=== PATIENT | male | born 1940 | race Caucasian/White ===

== ENCOUNTER 2016-12-08 21:18 | Inpatient (IN) | payer MEDICARE, OTHER ==
--- NOTE | 2016-12-08 21:51 | ED ---
General Adult HPI - General Chief complaint: Chest Pain Stated complaint: tachycardia Time Seen by Provider: 12/08/16 21:40 Source: patient, RN notes reviewed Mode of arrival: ambulatory Limitations: no limitations - History of Present Illness Initial comments: Patient is a pleasant 76-year-old male presenting to the emergency department with atrial fibrillation. Patient was transferred for cardiac care. Patient admits to earlier feeling somewhat short of breath. Patient at one point did have some palpitations. Patient denies ever having chest discomfort. Patient is symptom-free at this time. Patient reportedly had atrial fibrillation with RVR. Patient was started on heparin as well as Cardizem drips. - Related Data Home Medications Medication Instructions Recorded Confirmed Aspirin 81 mg PO DAILY 08/17/15 12/08/16 Folic Acid 1 mg PO DAILY 08/17/15 12/08/16 Insulin Aspart Protam & Aspart 16 unit SQ TID 08/17/15 12/08/16 [NovoLOG MIX 70-30 Flexpen] Insulin Glargine,Hum.rec.anlog 24 unit SQ HS 08/17/15 12/08/16 [Lantus Solostar] Lisinopril 40 mg PO DAILY 08/17/15 12/08/16 Lovastatin [Mevacor] 40 mg PO W/SUPPER 08/17/15 12/08/16 Nitroglycerin Sl Tabs [Nitrostat] 0.4 mg SUBLINGUAL Q5M PRN 08/17/15 12/08/16 Spironolactone [Aldactone] 25 mg PO DAILY 08/17/15 12/08/16 amLODIPine [Norvasc] 10 mg PO DAILY 08/17/15 12/08/16 metFORMIN HCL 1,000 mg PO BID 08/17/15 12/08/16 Atenolol 100 mg PO DAILY 12/08/16 12/08/16 Previous Rx's Medication Instructions Recorded Clopidogrel [Plavix] 75 mg PO DAILY #30 tab 08/27/15 Allergies Allergy/AdvReac Type Severity Reaction Status Date / Time No Known Allergies Allergy Verified 12/08/16 22:02 Review of Systems ROS Statement: Those systems with pertinent positive or pertinent negative responses have been documented in the HPI. ROS Other: All systems not noted in ROS Statement are negative. Constitutional: Denies: fever Eyes: Denies: eye pain ENT: Denies: ear pain Respiratory: Reports: dyspnea. Denies: cough Cardiovascular: Reports: palpitations. Denies: chest pain Endocrine: Denies: fatigue Gastrointestinal: Denies: abdominal pain Genitourinary: Denies: dysuria Musculoskeletal: Denies: back pain Skin: Denies: rash Neurological: Denies: weakness Past Medical History Past Medical History: Atrial Fibrillation, Coronary Artery Disease (CAD), Heart Failure, Diabetes Mellitus, Hyperlipidemia, Hypertension, Myocardial Infarction (NM) Additional Past Medical History / Comment(s): sores on arms, INTERMITTENT CLAUDICATION, PAD Last Myocardial Infarction Date:: unknown History of Any Multi-Drug Resistant Organisms: None Reported Past Surgical History: Coronary Bypass/CABG, Heart Catheterization Additional Past Surgical History / Comment(s): TRIPLE VESSEL CABG 2001( LEHMAN TO LAD, MONTY TO RCA, SVG TO KATT AND OM-EF 45%), susanna cataracts, 08-26-15 ABD AORTIC AORTOGRAM,SUSANNA LOWER EXTREMITY RUNNOFF,BALLOON ANGIOPLASTY RT SFA,STENT TO SFA. Past Anesthesia/Blood Transfusion Reactions: No Reported Reaction Past Psychological History: No Psychological Hx Reported Smoking Status: Former smoker Past Alcohol Use History: Occasional Past Drug Use History: None Reported - Past Family History Mother Family Medical History: No Reported History Additional Family Medical History / Comment(s): PT POOR HISTORIAN ON PARENTS HX - ALL HE KNEW WAS SHE HAD TB WHEN SHE WAS YOUNGER Father Family Medical History: Dementia Additional Family Medical History / Comment(s): CARDAIC DISEASE General Exam Limitations: no limitations General appearance: alert Head exam: Present: atraumatic Eye exam: Present: normal appearance, PERRL ENT exam: Present: normal oropharynx Neck exam: Present: normal inspection Respiratory exam: Present: normal lung sounds bilaterally Cardiovascular Exam: Present: regular rate, irregular rhythm GI/Abdominal exam: Present: soft. Absent: tenderness Extremities exam: Present: normal inspection. Absent: pedal edema, calf tenderness Neurological exam: Present: alert Psychiatric exam: Present: normal affect, normal mood Skin exam: Absent: rash Course Vital Signs 12/08/16 12/08/16 12/08/16 21:24 21:52 22:06 Temperature 98 F Pulse Rate 80 78 170 H Respiratory 16 16 16 Rate Blood Pressure 154/80 179/70 87/52 O2 Sat by Pulse 97 98 Oximetry 12/08/16 12/08/16 12/08/16 22:16 23:03 23:13 Temperature Pulse Rate 154 H 138 H 131 H Respiratory 16 16 16 Rate Blood Pressure 89/59 100/55 128/75 O2 Sat by Pulse 98 97 Oximetry - Reevaluation(s) Reevaluation #1: 12/08/16 22:23 Patient was reevaluated and updated. Heart rate has varied between 70 and 150. 12/08/16 23:16 Patient's troponin is elevated. Cardiology consult has been placed and patient is on heparin. Aspirin will be added. Chest x-ray will be repeated in the morning as well as further blood work. Lasix will also be added for elevated BNP and concern for CHF. EKG Findings - EKG Comments: EKG Findings:: Sinus rhythm with premature atrial complexes. SC 170. QRS 114. QT 398. QTC 447. Normal axis. Incomplete left bundle-branch block. Inverted T waves leads V2 through V6. Some ST depression laterally. Medical Decision Making - Medical Decision Making Chart reviewed from [facility]. Chest x-ray report showed cardiomegaly and concern for vascular congestion. BNP has been ordered. Case was discussed in detail with practitioner [facility], who will admit for Dr. Lopez , covering for hospital call. Consult will be placed for cardiology, Dr. Lugo who saw the patient earlier. Cardizem and heparin drips continued. Admission orders written. - Lab Data Lab Results 12/08/16 12/08/16 Range/Units 22:12 22:12 Total Creatine Kinase 67 (55-170) U/L CK-MB (CK-2) 1.9 (0.0-2.4) ng/mL CK-MB (CK-2) Rel Index 2.8 Troponin I 0.336 H* (0.000-0.034) ng/mL NT-Pro-B Natriuret Pep 4910 pg/mL Critical Care Time Critical Care Time: Yes Total Critical Care Time: 31 Disposition Clinical Impression: Atrial fibrillation with RVR Disposition: ADMITTED IP TO THIS HOSP Referrals: Benjamin Simms MD [Primary Care Provider] - 1-2 days
[2016-12-08] MEDS: HEPARIN SODIUM,PORCINE 5,000 UNIT/ML 1 ML VIAL IV PRN (22:04)
[2016-12-08] MEDS: HEPARIN SODIUM,PORCINE/D5W PMX 25,000 UNIT in DEXTROSE/WATER 1 500ML.BAG IV SCH (22:05)
[2016-12-08] MEDS ORDERED: DILTIAZEM 125 MG in SODIUM CHLORIDE 0.9% 100 ML IV ONE (22:08)
[2016-12-08] MEDS ORDERED: NALOXONE 0.4 MG/ML 1 ML VIAL IV PRN (22:21)
[2016-12-08 23:03] LABS: Creatine Kinase MB 1.9 ng/mL (0.0-2.4)
[2016-12-08 23:12] LABS: Troponin I 0.336 ng/mL (0.000-0.034)
[2016-12-08] MEDS: SODIUM CHLORIDE 0.9% 1,000 ML IV SCH (23:15)
[2016-12-08] MEDS ORDERED: ASPIRIN 81 MG CHEW PO STA (23:15)
[2016-12-08] MEDS ORDERED: FUROSEMIDE 10 MG/ML 4 ML VIAL IV STA (23:17)
[2016-12-09 00:34] LABS: Glucose,Whole Blood 175 mg/dL (75-99)
[2016-12-09 02:47] VITALS: BMI 29.7
[2016-12-09 06:13] LABS: Basophils # (A) 0.1 k/uL (0-0.2); Basophils % (A) 1 %; CH 27.3; CHCM 32.2; Eosinophils # (A) 0.1 k/uL (0-0.7); Eosinophils % (A) 2 %; HCT 38.2 % (39.0-53.0); HDW 3.32; HGB 12.1 gm/dL (13.0-17.5); Hypochromasia Slight; Luc # (Auto) 0.08; Luc % (Auto) 1; Lymphocytes # (A) 1.2 k/uL (1.0-4.8); Lymphocytes % (A) 22 %; MCHC 31.6 g/dL (31.0-37.0); MCV 85.2 fL (80.0-100.0); Mean Platelet Volume 8.2; Monocytes # (A) 0.2 k/uL (0-1.0); Monocytes % (A) 4 %; Neutrophils # (A) 3.7 k/uL (1.3-7.7); Neutrophils % (A) 70 %; RBC 4.48 m/uL (4.30-5.90); RDW 14.5 % (11.5-15.5); WBC 5.3 k/uL (3.8-10.6); WBC (Perox) 5.39
[2016-12-09 06:27] LABS: ALT 24 U/L (21-72); AST 12 U/L (17-59); Alkaline Phosphatase 63 U/L (38-126); Anion Gap 11 mmol/L; Blood Urea Nitrogen 25 mg/dL (9-20); Calcium 8.5 mg/dL (8.4-10.2); Carbon Dioxide 20 mmol/L (22-30); Chloride 106 mmol/L (98-107); Glucose 258 mg/dL (74-99); Magnesium 1.6 mg/dL (1.6-2.3); Non-African American GFR(MDRD) >60 (>60 ml/min/1.73 sqM); Phosphorous 3.9 mg/dL (2.5-4.5); Potassium 3.7 mmol/L (3.5-5.1); Sodium 137 mmol/L (137-145); Total Bilirubin 0.8 mg/dL (0.2-1.3); Total Protein 5.7 g/dL (6.3-8.2)
[2016-12-09] MEDS ORDERED: DEXTROSE 5% IN WATER 100 ML with AMIODARONE 150 MG IV ONE (06:37)
[2016-12-09] MEDS: INSULIN GLARGINE 100 UNIT/ML 10 ML VIAL SQ SCH ×2 (06:43→21:52)
[2016-12-09 06:44] LABS: Troponin I 0.343 ng/mL (0.000-0.034)
[2016-12-09] MEDS: HEPARIN SODIUM,PORCINE 5,000 UNIT/ML 1 ML VIAL IV PRN ×2 (06:45→23:21)
[2016-12-09 07:21] LABS: Glucose,Whole Blood 232 mg/dL (75-99)
[2016-12-09] MEDS: INSULIN LISPRO (humaLOG) 300 UNIT/3 ML VIAL SQ SCH ×4 (07:51→21:53)
[2016-12-09] MEDS: AMIODARONE 450 MG in DEXTROSE 5% IN WATER 250 ML IV SCH ×4 (08:40→17:08)
--- NOTE | 2016-12-09 08:42 | CONS ---
DATE OF CONSULTATION: CHIEF COMPLAINT: Palpitations. Luan is a 76-year-old gentleman with history of hypertension, dyslipidemia, insulin-requiring diabetes, coronary artery disease and prior history of atrial fibrillation who presented to [facility] with symptoms of sustained palpitations. He was in atrial fibrillation with rapid ventricular rate, was started on Cardizem and continued to have poorly controlled ventricular rate due to which he is transferred to [facility] and admitted here. Cardiology has been consulted for the same. At the time of my evaluation this morning, he still remains in A. fib with poorly controlled ventricular rate on Cardizem 15 mg. He denies chest pain, difficulty in breathing, dizziness, syncope, or focal neurological deficits. Past medical history is significant for insulin-requiring diabetes, CAD, hypertension, dyslipidemia, and paroxysmal atrial fibrillation; also peripheral vascular disease, status post angioplasty. Current medications include atenolol 100 q. daily, metformin 1000 b.i.d., Norvasc 10 q. daily, Aldactone 25 mg daily, aspirin, folic acid, insulin, lisinopril, Mevacor and sublingual nitroglycerin. ALLERGIES: No known drug allergies. Family history is negative for premature coronary artery disease. Social history is negative for current smoking, EtOH abuse or drug abuse. REVIEW OF SYSTEMS: HEENT: Unremarkable. CARDIAC: As described above. RESPIRATORY: Negative. GI: Negative. GENITOURINARY: Negative. ALLERGY/IMMUNOLOGY: Negative. MUSCULOSKELETAL: Significant for arthritis. PSYCHOSOCIAL: Negative. ENDOCRINE: Negative. DERMATOLOGY: Negative. CONSTITUTIONAL: Negative. The rest of the system review is not relevant. On exam, patient is comfortable at rest. Heart rate is 143 beats per minute, blood pressure 133/60, respirations 18. There is no jugular venous distention. Carotid upstroke is normal. There is no bruit. Chest exam reveals good air entry bilaterally. Heart exam reveals first and second heart sounds, irregular rhythm and no murmur. Abdomen is soft. Exam of the extremities did not reveal any edema. Peripheral pulses are felt. Rhythm strip shows that the patient is in A. fib with RVR. There were several times at which patient has converted to sinus rhythm, but went back into A. fib. Labs show that the hemoglobin is 12, platelet count is 135. His troponins are in the vora zone at 0.3 and 0.3. Potassium is 3.7. Creatinine is 0.9. Hemoglobin is 12.1. ASSESSMENT: 1. Atrial fibrillation with rapid ventricular rate. 2. Peripheral vascular disease. 3. Hypertension. 4. Insulin-requiring diabetes. PLAN: Patient is on IV Cardizem. Continues to be in A. fib with RVR. I started him on IV amiodarone and if he remains in A. fib with poorly controlled ventricular rate, we might have to do a DEVONTE cardioversion on him later today.
[2016-12-09] MEDS ORDERED: ATENOLOL 50 MG TAB PO SCH (09:00)
--- NOTE | 2016-12-09 10:19 | ECHOF ---
Referral Reason:a-fib MEASUREMENTS -------- HEIGHT: 177.8 cm WEIGHT: 93.9 kg BP: 149/89 RVIDd: 3.8 cm (< 3.3) IVSd: 0.9 cm (0.6 - 1.1) LVIDd: 6.0 cm (3.9 - 5.3) LVPWd: 1.3 cm (0.6 - 1.1) IVSs: 1.6 cm LVIDs: 5.5 cm LVPWs: 1.1 cm LA Diam: 4.4 cm (2.7 - 3.8) LAESV Index (A-L): 33.62 ml/m Ao Diam: 3.4 cm (2.0 - 3.7) AV Cusp: 2.0 cm (1.5 - 2.6) LA Diam: 4.4 cm (2.7 - 3.8) MV EXCURSION: 11.128 mm (> 18.000) MV EF SLOPE: 339 mm/s (70 - 150) EPSS: 1.9 cm MV E Leonard: 1.18 m/s MV DecT: 129 ms MV A Leonard: 0.72 m/s MV E/A Ratio: 1.64 RAP: 5.00 mmHg RVSP: 24.39 mmHg FINDINGS -------- Atrial fibrillation. This was a technically good study. There is mild concentric left ventricular hypertrophy. Overall left ventricular systolic function is severely impaired with, an EF between 20 - 25 %. The right ventricle is mildly enlarged. LA is midly dilated 29-33ml/m2. The right atrium is normal in size. Aortic valve is trileaflet and is mildly thickened. The mitral valve leaflets are mildly thickened. Mild mitral annular calcification present. There is trace mitral regurgitation. Trace tricuspid regurgitation present. The pulmonic valve was not well visualized. The aortic root size is normal. Normal inferior vena cava with normal inspiratory collapse consistent with estimated right atrial pressure of 5 mmHg. There is no pericardial effusion. CONCLUSIONS -------- 1. Atrial fibrillation. 2. Mild mitral annular calcification present. 3. There is trace mitral regurgitation. 4. Trace tricuspid regurgitation present. 5. The pulmonic valve was not well visualized. 6. The aortic root size is normal. 7. There is no pericardial effusion. 8. This was a technically good study. 9. There is mild concentric left ventricular hypertrophy. 10. Overall left ventricular systolic function is severely impaired with, an EF between 20 - 25 %. 11. The right ventricle is mildly enlarged. 12. LA is midly dilated 29-33ml/m2. 13. The right atrium is normal in size. 14. Aortic valve is trileaflet and is mildly thickened. 15. The mitral valve leaflets are mildly thickened. [employer] BLAST[employer]: Martinez Rosas RDCS
[2016-12-09 11:33] LABS: Troponin I 0.226 ng/mL (0.000-0.034)
[2016-12-09 12:34] LABS: Glucose,Whole Blood 226 mg/dL (75-99)
[2016-12-09] MEDS: LISINOPRIL 20 MG TAB PO SCH (12:37)
[2016-12-09] MEDS: metFORMIN 500 MG TAB PO SCH ×2 (12:37→21:54)
[2016-12-09] MEDS: ASPIRIN 325 MG TAB PO SCH (12:38)
[2016-12-09] MEDS: CLOPIDOGREL 75 MG TAB PO SCH (12:38)
[2016-12-09] MEDS: SPIRONOLACTONE 25 MG TAB PO SCH (12:38)
[2016-12-09] MEDS: INSULN ASP PRT/INSULIN ASPART 100 UNIT/ML 10 ML VIAL SQ SCH ×3 (12:39→21:57)
[2016-12-09 13:51] LABS: Hemoglobin A1C 9.7 % (4.2-6.1)
--- NOTE | 2016-12-09 15:15 | XR ---
EXAMINATION TYPE: XR chest 2V DATE OF EXAM: 12/09/2016 3:08 PM COMPARISON: 12/08/2016 TECHNIQUE: PA and lateral views submitted. HISTORY: Chest pain FINDINGS: The lungs are clear and there is no pneumothorax, pleural effusion, or focal pneumonia. Heart is en larged and there is postoperative change with coarsened interstitium. Arthropathy of the shoulders. N o pneumothorax. Vague nodular density along the medial margin of the right lower lobe Degenerative change of the spine and epicardial lead noted. IMPRESSION: 1. COPD, cardiomegaly and findings suggestive of interstitial lung disease. Correlate for mild venous congestion or chronic interstitial fibrosis 2. Vague nodular density along the medial margin of the right lower lobe may be related to superimpos ed structures. Short-term follow-up PA and lateral views the chest recommended
[2016-12-09 17:17] LABS: Glucose,Whole Blood 222 mg/dL (75-99)
[2016-12-09 17:54] VITALS: RESP 18
--- NOTE | 2016-12-09 18:25 | HP ---
DATE OF ADMISSION: CHIEF COMPLAINT: Chest pain and dizziness. HISTORY OF PRESENT ILLNESS: Mr. Powell is a 76-year-old male with known history of hypertension, insulin-dependent diabetes mellitus, CHF with systolic dysfunction, history of TIA and previous history of atrial fibrillation. He was sent from [facility] for further elevation by Cardiology due to atrial fibrillation with rapid ventricular rate. Patient initially presented to [facility] ( ) follow with Dr. Lugo and was found to have atrial fibrillation with rapid ventricular rate. Patient denied any palpitations. Patient has had dizziness on and off for the past several days. Denied any palpitations. Patient denied any chest pain. No complaints of shortness of breath. Patient was started on Cardizem drip. His heart rate is still elevated today. The patient otherwise was started on amiodarone drip as well. Cardiology is following this patient and considering DEVONTE and DC cardioversion this afternoon. Otherwise, currently denies any complaints of chest pain. No fever. No chills. No recent illnesses. No sick contacts at home. No recent travel. REVIEW OF SYSTEMS: CONSTITUTIONAL: No fever. No chills. No weakness or malaise. RESPIRATORY: No cough or sputum production. CARDIOVASCULAR: Denied any chest or chest pain. No shortness of breath. Patient does have dizziness and lightheadedness on and off. No leg swelling. ABDOMEN: No nausea or vomiting, abdominal pain. GENITOURINARY: Negative. ENDOCRINE: Negative. PSYCHIATRIC: Negative. SKIN: Negative. All other 14-point review of systems negative except as above. Past medical history includes: 1. Insulin-dependent diabetes mellitus. 2. History of coronary artery disease, status post coronary artery bypass graft. 3. Hypertension. 4. Hyperlipidemia. 5. History of paroxysmal atrial fibrillation. 6. Peripheral vascular disease. 7. Status post angioplasty on the right leg. 8. Coronary artery bypass graft 15 years ago. 9. History of MN. 10. Intermittent claudication. PAST SURGICAL HISTORY: 1. Coronary artery bypass graft. 2. Cardiac catheterization. 3. Triple-vessel coronary artery bypass graft done in 2001. 4. Bilateral cataract surgery. 5. Abdominal aortic aortogram. 6. Bilateral lower extremity balloon angioplasty, right SFA; stent to SFA. SOCIAL HISTORY: Patient is a former smoker. Occasional alcohol use. Denied any drugs or IVDU. FAMILY HISTORY: Mother had TB when she was younger. Patient otherwise denied any other history. Father has dementia and cardiac disease. ALLERGIES: NONE. HOME MEDICATIONS: 1. Aspirin. 2. Folic acid. 3. NovoLog Mix 70/30. 4. Insulin Glargine. 5. Lisinopril. 6. Lovastatin. 7. Nitroglycerin sublingual tablets. 8. Spironolactone. 9. Amlodipine. 10. Metformin. 11. Atenolol. 12. Plavix. PHYSICAL EXAMINATION: A 76-year-old male lying in bed comfortably. Awake, alert, oriented x3. Appears to be in no distress. VITAL SIGNS: Blood pressure is 114/69, pulse 167, respiration 18, temperature afebrile, pulse ox 99% on 2 L nasal cannula. HEENT: Atraumatic, normocephalic. Neck is supple. No JVD. CVS EXAM: S1, S2 heard. Irregularly irregular pulse and tachycardic. No leg swelling. ABDOMEN: No nausea, vomiting, abdominal pain. Soft, nontender. Bowel sounds are present. No palpable organomegaly. 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 Appears to be in no distress. Able to move all his extremities. No focal deficit. EXTREMITIES: No edema. Pulses palpable bilaterally. No clubbing or cyanosis. PSYCHIATRIC: Cooperative. LABORATORY DATA: WBC is 5.3, hemoglobin 12.1, platelets 135. Sodium 139, potassium 3.7, chloride 106, bicarb 20. BUN 25, creatinine 0.95. Blood sugar is 258. HbA1c is 9.7. AST is 12, ALT 24. Initial troponin 0.343 and 0.226. Albumin 3.1. CHEST X-RAY: COPD, cardiomegaly, findings suggestive of interstitial lung disease. Vague nodular density along the medial margin of the right lower lobe; may be related to stricture. Short term followup is recommended. Two-D echocardiogram showed atrial fibrillation with ejection fraction of 25%. IMPRESSION: 1. Atrial fibrillation with rapid ventricular rate, currently on Cardizem and amiodarone drip. Heart rates are still elevated and Cardiology is considering DEVONTE with cardioversion. 2. History of coronary artery disease, status post coronary artery bypass graft in 2001. 3. Hypertension. 4. Insulin-dependent diabetes mellitus, uncontrolled, with hemoglobin A1C of 9.7. 5. History of paroxysmal atrial fibrillation. 6. Peripheral vascular disease with history of right SFA stent placement. 7. Hyperlipidemia. 8. Congestive heart failure with ejection fraction of 20% to 25%, chronic. 9. Elevated troponin level, likely secondary to rapid ventricular rate. 10. Elevated troponin with possible [id number]-elevation myocardial infarction. DISCUSSION AND PLAN: Patient will be continued on heparin drip and continue with the Cardizem and amiodarone. Cardizem has been discontinued and Cardiology is planning for DEVONTE with cardioversion. Continue with the aspirin, Plavix and home blood pressure medications. Continue with the insulin dosing. Further recommendations based on the clinical course. I did discuss with his at bedside in detail. Patient is FULL CODE.
[2016-12-09 21:10] LABS: Glucose,Whole Blood 196 mg/dL (75-99)
[2016-12-09] MEDS: AMIODARONE 200 MG TAB PO SCH (21:57)
[2016-12-09] MEDS: SODIUM CHLORIDE 0.9% 1,000 ML IV SCH (23:21)
[2016-12-09] MEDS: HEPARIN SODIUM,PORCINE/D5W PMX 25,000 UNIT in DEXTROSE/WATER 1 500ML.BAG IV SCH (23:22)
[2016-12-10 05:35] LABS: Basophils % (A) 1 %; CH 27.4; CHCM 32.6; Eosinophils # (A) 0.1 k/uL (0-0.7); Eosinophils % (A) 2 %; HCT 39.4 % (39.0-53.0); HDW 3.29; HGB 12.5 gm/dL (13.0-17.5); Luc # (Auto) 0.11; Luc % (Auto) 1; Lymphocytes # (A) 1.9 k/uL (1.0-4.8); Lymphocytes % (A) 23 %; MCH 26.9 pg (25.0-35.0); MCHC 31.8 g/dL (31.0-37.0); MCV 84.7 fL (80.0-100.0); Mean Platelet Volume 8.9; Monocytes # (A) 0.3 k/uL (0-1.0); Monocytes % (A) 3 %; Neutrophils # (A) 5.8 k/uL (1.3-7.7); Neutrophils % (A) 70 %; RBC 4.65 m/uL (4.30-5.90); RDW 14.7 % (11.5-15.5); WBC 8.2 k/uL (3.8-10.6); WBC (Perox) 8.67
[2016-12-10 05:41] LABS: Glucose,Whole Blood 215 mg/dL (75-99)
[2016-12-10] MEDS: INSULIN LISPRO (humaLOG) 300 UNIT/3 ML VIAL SQ SCH ×3 (06:49→16:36)
[2016-12-10 06:50] LABS: Glucose,Whole Blood 215 mg/dL (75-99)
[2016-12-10 06:50] LABS: Potassium 4.6 mmol/L (3.5-5.1)
[2016-12-10] MEDS ORDERED: ATENOLOL 25 MG TAB PO SCH (09:00)
[2016-12-10] MEDS: metFORMIN 500 MG TAB PO SCH (09:14)
[2016-12-10] MEDS: ASPIRIN 325 MG TAB PO SCH (09:14)
[2016-12-10] MEDS: CLOPIDOGREL 75 MG TAB PO SCH (09:14)
[2016-12-10] MEDS: SPIRONOLACTONE 25 MG TAB PO SCH (09:15)
[2016-12-10] MEDS: AMIODARONE 200 MG TAB PO SCH (10:17)
[2016-12-10] MEDS: INSULN ASP PRT/INSULIN ASPART 100 UNIT/ML 10 ML VIAL SQ SCH (10:18)
[2016-12-10] MEDS ORDERED: APIXABAN 2.5 MG TABLET PO SCH (10:30)
[2016-12-10 11:24] LABS: Glucose,Whole Blood 162 mg/dL (75-99)
[2016-12-10] MEDS: LISINOPRIL 20 MG TAB PO SCH (11:24)
--- NOTE | 2016-12-10 13:41 | PN ---
Mr. Powell is in sinus rhythm today. He converted to sinus rhythm yesterday on amiodarone. He is hemodynamically stable, resting without symptoms. He sees Dr. Lugo in the outpatient setting. His vital signs are stable. S1, S2 heard normally. Short systolic murmur is audible at the base. Lungs are clear. Abdomen and lower extremity exam unchanged. Plan is to add Eliquis 2.5 mg b.i.d., continue aspirin and Plavix, increase activity, and discharge him on amiodarone 200 mg b.i.d. I explained to him that since he is back in sinus rhythm, we will discharge him and he will see Dr. Lugo in the next 1 to 2 weeks.
[2016-12-10 13:47] VITALS: BP 122/67; PULSE 55; TEMP 96.1
[2016-12-10 16:48] LABS: Glucose,Whole Blood 80 mg/dL (75-99)
[2016-12-11] MEDS ORDERED: ASPIRIN 81 MG CHEW PO SCH (09:00)
--- NOTE | 2016-12-11 10:44 | DS ---
DATE OF ADMISSION: 12/08/2016 DATE OF DISCHARGE: 12/10/2016 FINAL DIAGNOSES: 1. Atrial fibrillation with rapid ventricular rate, status post Cardizem and amiodarone drip. Patient converted to sinus rhythm. 2. History of coronary artery disease, status post coronary artery bypass graft in 2001. 3. Hypertension. 4. Insulin-dependent diabetes mellitus, uncontrolled with HbA1c of 9.7. 5. History of paroxysmal atrial fibrillation started on anticoagulation with Eliquis now. 6. Peripheral vascular disease with history of right SFA stent placement. 7. Hyperlipidemia. 8. Congestive heart failure with ejection fraction of 20% to 25%, chronic. 9. Elevated troponin level likely secondary to rapid ventricular rate. HOSPITAL COURSE: Mr. Powell is a 76-year-old male with a history of coronary artery disease and bypass graft, was sent from [facility] and was found to have atrial fibrillation with rapid ventricular rate. The patient was continued on Cardizem drip. The patient's rate was still elevated and amiodarone drip was started after that. Patient converted back to sinus rhythm. Heart rate is controlled now. The patient will be continued on beta blockers and anticoagulation in the form of Eliquis. Cardiology recommended follow-up as an outpatient. Otherwise, patient is stable to be discharged home. DISCHARGE PHYSICAL EXAMINATION: A 76-year-old male lying in the bed comfortably, awake, alert, oriented x3, appears in no distress. VITALS: Blood pressure 122/67, pulse is 55, respirations 18, temperature afebrile, pulse ox 97% on room air. LABORATORY DATA: Reviewed. Discharge physical examination done. Discharge medications include: 1. Aspirin 81 mg p.o. daily. 2. Folic acid 1 mg p.o. daily. 3. Insulin 70/30 16 units subcu t.i.d. 4. Insulin glargine 24 units subcu at bedtime. 5. Lisinopril 40 mg p.o. daily. 6. Lovastatin 40 mg p.o. with supper. 7. Nitroglycerin 0.4 mg sublingual q.5 minutes p.r.n. for chest pain. 8. Spironolactone 25 mg p.o. daily. 9. Metformin 1000 mg p.o. b.i.d. 10. Plavix 75 mg daily. 11. Amiodarone 200 mg p.o. b.i.d. 12. Apixaban 2.5 mg p.o. b.i.d. 13. Atenolol 25 mg p.o. daily. Patient will be discharged home in stable condition. Activity as tolerated. Heart healthy diet. Follow with Dr. Lugo in one week; follow with Dr. Benjamin Simms. Home with self-care.
== END 2016-12-10 17:39 | disposition home or self-care (01) | DRG 309 ==
LOC: EC 21:18 → 6SEL 22:21
PROVIDERS: ADMIT Internal Medicine; ATTEND Internal Medicine
DX: I48.0 Paroxysmal atrial fibrillation (principal); I50.22 Chronic systolic (congestive) heart failure; I11.0 Hypertensive heart disease with heart failure; E11.51 Type 2 diabetes mellitus with diabetic peripheral angiopathy without gangrene; E11.65 Type 2 diabetes mellitus with hyperglycemia; I25.10 Atherosclerotic heart disease of native coronary artery without angina pectoris; E78.5 Hyperlipidemia, unspecified; I25.2 Old myocardial infarction; Z79.82 Long term (current) use of aspirin; Z95.1 Presence of aortocoronary bypass graft; Z98.41 Cataract extraction status, right eye; Z98.42 Cataract extraction status, left eye; Z86.73 Personal history of transient ischemic attack (TIA), and cerebral infarction without residual deficits; Z87.891 Personal history of nicotine dependence; Z79.02 Long term (current) use of antithrombotics/antiplatelets; Z79.4 Long term (current) use of insulin; Z79.84 Long term (current) use of oral hypoglycemic drugs; Z79.899 Other long term (current) drug therapy
CPT/HCPCS: 36415; 71020; 80048; 80053; 82550; 82553; 83036; 83735; 83880; 84100; 84484; 85025; 85730; 93005; 93306; 96365; 96366; 96367; 96375; 96376; 99291

== ENCOUNTER 2018-03-28 12:56 | Inpatient (IN) | payer MEDICARE, OTHER ==
[2018-03-28] MEDS ORDERED: NITROGLYCERIN OINT 1 INCH/GM PACKET TOPICAL STA (13:02)
[2018-03-28] MEDS ORDERED: FUROSEMIDE 10 MG/ML 4 ML VIAL IV STA (13:02)
--- NOTE | 2018-03-28 13:05 | ED ---
General Adult HPI - General Stated complaint: poss pnuemonia and hypoxia Time Seen by Provider: 03/28/18 13:03 Source: RN notes reviewed - History of Present Illness Initial comments: This is a 77-year-old male who presents to the emergency department from [facility]. Patient was having difficulty breathing which started yesterday and some altered mental status was also started yesterday I was told the patient had pneumonia bilaterally and was being sent from [place] with antibiotics because of the bilateral pneumonia. Patient currently only complains of difficulty breathing he denies any pain denies chest pain denies headache denies lightheadedness. Patient denies abdominal pain. Patient states he does have some edema in his legs but is unable tell me if its new or old. - Related Data Home Medications Medication Instructions Recorded Confirmed Aspirin 81 mg PO DAILY 08/17/15 03/28/18 Folic Acid 1 mg PO DAILY 08/17/15 03/28/18 Insulin Aspart Protam & Aspart 10 unit SQ AC-TID 08/17/15 03/28/18 [NovoLOG MIX 70-30 Flexpen] Lisinopril 40 mg PO DAILY 08/17/15 03/28/18 Lovastatin [Mevacor] 40 mg PO W/SUPPER 08/17/15 03/28/18 Nitroglycerin Sl Tabs [Nitrostat] 0.4 mg SUBLINGUAL Q5M PRN 08/17/15 03/28/18 Spironolactone [Aldactone] 25 mg PO DAILY 08/17/15 03/28/18 metFORMIN HCL 1,000 mg PO BID 08/17/15 03/28/18 Amiodarone [Cordarone] 200 mg PO DAILY 03/28/18 03/28/18 Cholecalciferol (Vitamin D3) 2,000 unit PO DAILY 03/28/18 03/28/18 [Vitamin D3] Insulin Glargine,Hum.rec.anlog 24 unit SQ DAILY 03/28/18 03/28/18 [Basaglar Kwikpen U-100] Insulin Glargine,Hum.rec.anlog 25 unit SQ HS 03/28/18 03/28/18 [Basaglar Kwikpen U-100] Tamsulosin HCl [Flomax] 0.4 mg PO DAILY 03/28/18 03/28/18 amLODIPine [Norvasc] 10 mg PO DAILY 03/28/18 03/28/18 Previous Rx's Medication Instructions Recorded Apixaban [Eliquis] 2.5 mg PO BID #60 tablet 12/10/16 Atenolol [Tenormin] 25 mg PO DAILY #30 tab 12/10/16 Allergies Allergy/AdvReac Type Severity Reaction Status Date / Time No Known Allergies Allergy Verified 03/28/18 13:53 Review of Systems ROS Statement: Those systems with pertinent positive or pertinent negative responses have been documented in the HPI. ROS Other: All systems not noted in ROS Statement are negative. Past Medical History Past Medical History: Atrial Fibrillation, Coronary Artery Disease (CAD), Heart Failure, Diabetes Mellitus, Hyperlipidemia, Hypertension, Myocardial Infarction ([place]) Additional Past Medical History / Comment(s): sores on arms, INTERMITTENT CLAUDICATION, PAD pt was admited to [facility] 07/2014 for CHF and A-fib Last Myocardial Infarction Date:: unknown History of Any Multi-Drug Resistant Organisms: None Reported Past Surgical History: Coronary Bypass/CABG, Heart Catheterization Additional Past Surgical History / Comment(s): TRIPLE VESSEL CABG 2001( LEHMAN TO LAD, MONTY TO RCA, SVG TO KATT AND OM-EF 45%), susanna cataracts, 11-4-15 ABD AORTIC AORTOGRAM,SUSANNA LOWER EXTREMITY RUNNOFF,BALLOON ANGIOPLASTY RT SFA,STENT TO SFA. Past Anesthesia/Blood Transfusion Reactions: No Reported Reaction Past Psychological History: No Psychological Hx Reported Smoking Status: Former smoker Past Alcohol Use History: Occasional Past Drug Use History: None Reported - Past Family History Mother Family Medical History: No Reported History Additional Family Medical History / Comment(s): PT POOR HISTORIAN ON PARENTS HX - ALL HE KNEW WAS SHE HAD TB WHEN SHE WAS YOUNGER Father Family Medical History: Dementia Additional Family Medical History / Comment(s): CARDAIC DISEASE General Exam - General Exam Comments Initial Comments: GENERAL: Patient is well-developed and well-nourished. Patient is nontoxic and well- hydrated and is in mild distress. ENT: Neck is soft and supple. No significant lymphadenopathy is noted. Oropharynx is clear. Moist mucous membranes. Neck has full range of motion without eliciting any pain. EYES: The sclera were anicteric and conjunctiva were pink and moist. Extraocular movements were intact and pupils were equal round and reactive to light. Eyelids were unremarkable. PULMONARY: Patient has crackles bilaterally CARDIOVASCULAR: There is a regular rate and rhythm without any murmurs gallops or rubs. Femoral pulses are equal bilaterally ABDOMEN: Soft and nontender with normal bowel sounds. No palpable organomegaly was noted. There is no palpable pulsatile mass. SKIN: Skin is clear with no lesions or rashes and otherwise unremarkable. NEUROLOGIC: Patient is alert and oriented x3. Cranial nerves II through XII are grossly intact. Motor and sensory are also intact. Normal speech, volume and content. Symmetrical smile. MUSCULOSKELETAL: Normal extremities with adequate strength and full range of motion. 2+ edema bilaterally LYMPHATICS: No significant lymphadenopathy is noted PSYCHIATRIC: Normal psychiatric evaluation. Normal interpersonal interactions appears functionally intact in deals appropriately with others. No signs of depression. No signs of anxiety. Course Vital Signs 03/28/18 03/28/18 12:59 13:27 Temperature 100 F H Pulse Rate 77 80 Respiratory 16 35 H Rate Blood Pressure 149/113 158/109 O2 Sat by Pulse 91 L 90 L Oximetry Medical Decision Making - Medical Decision Making EKG shows a sinus rhythm at 80 bpm QRS is under 2 QT interval is 420 QTC is 493. Patient has some slight ST segment depression in leads II, III, and F aVF. I reviewed the old chest x-ray appeared that the patient had bilateral pneumonia with some possible pulmonary edema - Lab Data Result diagrams: 03/28/18 13:10 03/28/18 13:10 Lab Results 03/28/18 03/28/18 03/28/18 Range/Units 13:10 13:10 13:10 WBC 13.4 H (3.8-10.6) k/uL RBC 4.24 L (4.30-5.90) m/uL Hgb 11.4 L (13.0-17.5) gm/dL Hct 36.2 L (39.0-53.0) % MCV 85.3 (80.0-100.0) fL MCH 26.9 (25.0-35.0) pg MCHC 31.5 (31.0-37.0) g/dL RDW 15.5 (11.5-15.5) % Plt Count 133 L (150-450) k/uL Neutrophils % 93 % Lymphocytes % 3 % Monocytes % 3 % Eosinophils % 1 % Basophils % 0 % Neutrophils # 12.5 H (1.3-7.7) k/uL Lymphocytes # 0.4 L (1.0-4.8) k/uL Monocytes # 0.4 (0-1.0) k/uL Eosinophils # 0.1 (0-0.7) k/uL Basophils # 0.0 (0-0.2) k/uL Hypochromasia Slight PT (9.0-12.0) sec INR (<1.2) APTT (22.0-30.0) sec Sodium 143 (137-145) mmol/L Potassium 4.1 (3.5-5.1) mmol/L Chloride 106 (98-107) mmol/L Carbon Dioxide 17 L (22-30) mmol/L Anion Gap 20 mmol/L BUN 30 H (9-20) mg/dL Creatinine 1.05 (0.66-1.25) mg/dL Est GFR (CKD-EPI)AfAm 80 (>60 ml/min/1.73 sqM) Est GFR (CKD-EPI)NonAf 70 (>60 ml/min/1.73 sqM) Glucose 182 H (74-99) mg/dL Plasma Lactic Acid Denzel (0.7-2.0) mmol/L Calcium 9.1 (8.4-10.2) mg/dL Magnesium 1.4 L (1.6-2.3) mg/dL Total Bilirubin 1.5 H (0.2-1.3) mg/dL AST 22 (17-59) U/L ALT 22 (21-72) U/L Alkaline Phosphatase 87 (38-126) U/L Total Creatine Kinase 466 H (55-170) U/L CK-MB (CK-2) 1.9 (0.0-2.4) ng/mL CK-MB (CK-2) Rel Index 0.4 Troponin I 0.030 (0.000-0.034) ng/mL NT-Pro-B Natriuret Pep pg/mL Total Protein 6.2 L (6.3-8.2) g/dL Albumin 3.8 (3.5-5.0) g/dL 03/28/18 03/28/18 03/28/18 Range/Units 13:10 13:10 13:10 WBC (3.8-10.6) k/uL RBC (4.30-5.90) m/uL Hgb (13.0-17.5) gm/dL Hct (39.0-53.0) % MCV (80.0-100.0) fL MCH (25.0-35.0) pg MCHC (31.0-37.0) g/dL RDW (11.5-15.5) % Plt Count (150-450) k/uL Neutrophils % % Lymphocytes % % Monocytes % % Eosinophils % % Basophils % % Neutrophils # (1.3-7.7) k/uL Lymphocytes # (1.0-4.8) k/uL Monocytes # (0-1.0) k/uL Eosinophils # (0-0.7) k/uL Basophils # (0-0.2) k/uL Hypochromasia PT 14.1 H (9.0-12.0) sec INR 1.5 H (<1.2) APTT 27.9 (22.0-30.0) sec Sodium (137-145) mmol/L Potassium (3.5-5.1) mmol/L Chloride (98-107) mmol/L Carbon Dioxide (22-30) mmol/L Anion Gap mmol/L BUN (9-20) mg/dL Creatinine (0.66-1.25) mg/dL Est GFR (CKD-EPI)AfAm (>60 ml/min/1.73 sqM) Est GFR (CKD-EPI)NonAf (>60 ml/min/1.73 sqM) Glucose (74-99) mg/dL Plasma Lactic Acid Denzel 2.5 H* (0.7-2.0) mmol/L Calcium (8.4-10.2) mg/dL Magnesium (1.6-2.3) mg/dL Total Bilirubin (0.2-1.3) mg/dL AST (17-59) U/L ALT (21-72) U/L Alkaline Phosphatase (38-126) U/L Total Creatine Kinase (55-170) U/L CK-MB (CK-2) (0.0-2.4) ng/mL CK-MB (CK-2) Rel Index Troponin I (0.000-0.034) ng/mL NT-Pro-B Natriuret Pep 9770 pg/mL Total Protein (6.3-8.2) g/dL Albumin (3.5-5.0) g/dL Disposition Clinical Impression: Acute pulmonary edema, Pneumonia Disposition: ADMITTED IP TO THIS HOSP Referrals: Benjamin Simms MD [Primary Care Provider] - 1-2 days Time of Disposition: 14:37
[2018-03-28 13:24] LABS: Basophils % (A) 0 %; Eosinophils # (A) 0.1 k/uL (0-0.7); Eosinophils % (A) 1 %; HCT 36.2 % (39.0-53.0); HGB 11.4 gm/dL (13.0-17.5); Hypochromasia Slight; Lymphocytes # (A) 0.4 k/uL (1.0-4.8); Lymphocytes % (A) 3 %; MCH 26.9 pg (25.0-35.0); MCHC 31.5 g/dL (31.0-37.0); MCV 85.3 fL (80.0-100.0); Monocytes # (A) 0.4 k/uL (0-1.0); Monocytes % (A) 3 %; Neutrophils # (A) 12.5 k/uL (1.3-7.7); Neutrophils % (A) 93 %; Platelet Count 133 k/uL (150-450); RBC 4.24 m/uL (4.30-5.90); RDW 15.5 % (11.5-15.5); WBC 13.4 k/uL (3.8-10.6)
[2018-03-28 13:35] LABS: INR 1.5 (<1.2); Partial Thromboplastin Time 27.9 sec (22.0-30.0); Prothrombin Time 14.1 sec (9.0-12.0)
[2018-03-28 13:39] LABS: Albumin 3.8 g/dL (3.5-5.0); Calcium 9.1 mg/dL (8.4-10.2); Magnesium 1.4 mg/dL (1.6-2.3); Potassium 4.1 mmol/L (3.5-5.1); Total Bilirubin 1.5 mg/dL (0.2-1.3); Total Protein 6.2 g/dL (6.3-8.2)
[2018-03-28 14:00] LABS: Creatine Kinase MB 1.9 ng/mL (0.0-2.4); Troponin I 0.03 ng/mL (0.000-0.034)
[2018-03-28] MEDS ORDERED: MAGNESIUM SULFATE-D5W PMX 1 GM in DEXTROSE/WATER 1 100ML.BAG IVPB ONE (14:34)
[2018-03-28] MEDS ORDERED: PNEUMONIA PROTOCOL UTILIZED 1 EACH MISC PO PRN (14:37)
[2018-03-28] MEDS ORDERED: IPRATROPIUM-ALBUTEROL 3 ML NEB INHALATION STA (14:39)
[2018-03-28] MEDS ORDERED: IPRATROPIUM-ALBUTEROL 3 ML NEB INHALATION PRN (14:57)
[2018-03-28] MEDS ORDERED: ENALAPRILAT 1.25 MG/ML 1 ML VIAL IVP STA (15:20)
[2018-03-28 16:44] LABS: Glucose,Whole Blood 221 mg/dL (75-99)
[2018-03-28] MEDS ORDERED: NITROGLYCERIN SL TABS 0.4 MG TAB SUBLINGUAL PRN (17:14)
[2018-03-28] MEDS ORDERED: FUROSEMIDE 10 MG/ML 2 ML VIAL IV SCH (18:00)
--- NOTE | 2018-03-28 18:10 | XR ---
EXAMINATION: XR chest 1V portable DATE AND TIME: 03/28/2018 5:37 PM ORDERING PROVIDER: Ann Hurley MD CLINICAL INDICATION: chf TECHNIQUE: AP portable upright COMPARISON: 12/09/2016 DESCRIPTION: Sternal sutures and mediastinal clips, and mild/moderate enlargement of the cardiac silh ouette. There are prominent consolidative opacities throughout the mid and lower lung zones, in addition to h omogeneously added opacity on the right with a horizontal smoothly defined interface, suggesting post eriorly dependent pleural effusion component of the opacity. The upper lungs appear negative for pulmonary edema. Bones and soft tissues are unremarkable. IMPRESSION: Suspect bilateral bronchopneumonia with prominent right pleural effusion; would suggest follow-up rad iographs to prove resolution of the abnormalities.
[2018-03-28] MEDS: NITROGLYCERIN OINT 1 INCH/GM PACKET TOPICAL SCH ×2 (18:17→23:14)
[2018-03-28] MEDS: ATORVASTATIN 10 MG TAB PO SCH (18:17)
[2018-03-28] MEDS: PANTOPRAZOLE 40 MG TABLET PO SCH (18:17)
[2018-03-28] MEDS: INSULIN ASPART 100 UNIT/ML 1 ML 10 ML VIAL SQ SCH ×2 (18:17→21:05)
--- NOTE | 2018-03-28 18:46 | HP ---
HISTORY AND PHYSICAL DATE OF SERVICE: 03/28/2018 CHIEF COMPLAINTS: Hypoxia, shortness of breath, weakness, multiple complaints. HISTORY OF PRESENT ILLNESS: This 77-year-old gentleman with a past medical history of multiple medical problems, including atrial fibrillation, CAD, CHF, diabetes mellitus type 2, hypertension, hyperlipidemia, being followed by a nurse practitioner in [facility], also seeing Dr. Lugo. According to the , the patient has been not eating well. Patient eats quite a bit of cookies before food and also use excessive salt. Patient compulsively short of breath and also noted bilateral leg swelling and patient also become weak and patient was taken to [facility] and subsequently referred to [facility] and admitted for further evaluation and treatment. Bilateral pneumonia versus CHF suspected at this time. There is no history of any fever, rigors. No history of any headache, loss of consciousness, seizures. PAST MEDICAL HISTORY: Atrial fibrillation, CAD, CHF, diabetes mellitus type 2, hypertension, hyperlipidemia, myocardial infarction, history of CAD, CABG. MEDICATIONS PRIOR TO ADMISSION: Include home medications are: 1. Metformin 1000 mg b.i.d. 2. Norvasc 10 mg p.o. daily. 3. Flomax 0.4 daily. 4. Aldactone 25 mg daily .. 5. Nitrostat 0.4 mg sublingual p.r.n. 6. 40 mg with supper. 7. Lisinopril 40 mg daily. 8. NovoLog mix 70/30 10 units subcu a.c. t.i.d. 9. Basaglar KwikPen 25 units subcu daily. 10.Basaglar KwikPen 25 units subcu q.h.s. 11.Folic acid 1 mg p.o. 12.Vitamin D3 2000 daily. 13.Tenormin 25 mg p.o. b.i.d. 14.Aspirin 81 mg p.o. daily. 15.Eliquis 2.5 mg p.o. b.i.d. 16.Cordarone 200 mg p.o. daily. ALLERGIES: None. FAMILY HISTORY: Unknown. SOCIAL HISTORY: Previous history of smoking. Occasional alcohol intake. REVIEW OF SYSTEMS: ENT: Diminished hearing, diminished vision. CARDIOVASCULAR: As mentioned earlier. RESPIRATORY: As mentioned earlier. GI: No nausea or vomiting. : No dysuria. NERVOUS: No numbness or weakness. ALLERGY/IMMUNOLOGY: No asthma or hay fever. MUSCULOSKELETAL: As mentioned earlier. HEMATOLOGY/ONCOLOGY: No history of anemia. ENDOCRINE: Diabetes mellitus. CONSTITUTIONAL: As mentioned earlier. DERMATOLOGY: Negative. RHEUMATOLOGY: Negative. PSYCHIATRY: As mentioned earlier. PHYSICAL EXAMINATION: The patient is alert and oriented x3. Pulse is 76, blood pressure 160/69, respirations 29, temperature is 99.2, pulse ox 91% on 15L Ventimask. HEENT: Conjunctivae normal. Oral mucosa moist. NECK: No jugular venous distention. CARDIOVASCULAR: S1, S2 muffled. Ejection systolic murmur. No S3, S4. RESPIRATORY: Breath sounds diminished in the bases. Bilateral scattered rhonchi and crackles. Expiratory wheezing also present. ABDOMEN: Soft, obese. Abdominal wall edema present. LEGS: Bilateral pitting pedal edema present. Pulses are diminished bilaterally. NERVOUS SYSTEM: Higher functions as mentioned earlier. Moves all 4 limbs. No focal motor or sensory deficits. LYMPHATIC: No lymphadenopathy in neck or axillae. SKIN: No ulcer, rash or bleeding. LABS: At this time show WBC 13.4, hemoglobin 11.4, platelets 133. INR is 1.5. Sodium 143, potassium 4.1. Plasma lactic acid 2.5. Total protein 6.2. ASSESSMENT: 1. Congestive heart failure acute exacerbation. 2. Possible bilateral pneumonia. 3. Increased WBC. 4. Anemia. 5. History of atrial fibrillation. 6. History of coronary artery disease, coronary artery bypass graft. 7. History of diabetes mellitus type 2. 8. Hypertension. 9. Hyperlipidemia. 10.History of myocardial infarction. 11.History of peripheral vascular disease. 12.History of cataracts. 13.Remote history of nicotine dependence. RECOMMENDATIONS AND DISCUSSION: In this 77-year-old gentleman who presented with multiple complex medical issues , we will monitor the patient closely, continue the current medical management and symptomatic treatment. Otherwise at this time, I recommend intermittent diuretics cautiously, empiric antibiotics, cardiology, pulmonology consultations. I would also recommend a 2D echo with a recent evaluation of the ejection fractions. Resume the home medications. I would avoid Norvasc at this time because of generalized edema. Otherwise, continue to monitor. Will add beta blockers to the current regimen. PT/OT evaluation. Dietary consultation because of the patient's dietary history and recent history of weight loss. Possible ECF rehab. I had a detailed discussion with the at the bedside and the patient understood and agreed and further recommendations to follow. Prognosis guarded. MMODL / IJN: [id number] / MTDD
[2018-03-28] MEDS: IPRATROPIUM-ALBUTEROL 3 ML NEB INHALATION SCH (20:16)
[2018-03-28] MEDS: ATENOLOL 25 MG TAB PO SCH (20:22)
[2018-03-28] MEDS: APIXABAN 2.5 MG TABLET PO SCH (20:22)
[2018-03-28] MEDS: metFORMIN 500 MG TAB PO SCH (20:22)
[2018-03-28] MEDS: FUROSEMIDE 10 MG/ML 4 ML VIAL IV SCH (20:22)
[2018-03-28 20:32] LABS: Glucose,Whole Blood 246 mg/dL (75-99)
[2018-03-28] MEDS: INSULIN DETEMIR 100 UNIT/ML 10 ML VIAL SQ SCH (21:05)
[2018-03-29 02:15] LABS: Hemoglobin A1C 6.2 % (4.0-6.0)
[2018-03-29] MEDS: NITROGLYCERIN OINT 1 INCH/GM PACKET TOPICAL SCH ×2 (06:18→12:03)
[2018-03-29] MEDS: PANTOPRAZOLE 40 MG TABLET PO SCH (06:18)
[2018-03-29] MEDS: FUROSEMIDE 10 MG/ML 4 ML VIAL IV SCH ×3 (06:18→20:22)
[2018-03-29 06:21] LABS: Glucose,Whole Blood 128 mg/dL (75-99)
[2018-03-29] MEDS: INSULIN ASPART 100 UNIT/ML 1 ML 10 ML VIAL SQ SCH ×4 (06:23→21:57)
[2018-03-29 06:29] LABS: Basophils % (A) 0 %; Eosinophils % (A) 0 %; HCT 31.1 % (39.0-53.0); Hypochromasia Slight; Lymphocytes # (A) 0.7 k/uL (1.0-4.8); Lymphocytes % (A) 7 %; MCH 27.1 pg (25.0-35.0); MCHC 32.1 g/dL (31.0-37.0); MCV 84.5 fL (80.0-100.0); Mean Platelet Volume 10.6; Monocytes # (A) 0.4 k/uL (0-1.0); Monocytes % (A) 4 %; Neutrophils # (A) 9.4 k/uL (1.3-7.7); Neutrophils % (A) 88 %; Platelet Count 114 k/uL (150-450); RBC 3.68 m/uL (4.30-5.90); RDW 15.3 % (11.5-15.5); WBC 10.6 k/uL (3.8-10.6)
[2018-03-29 06:43] LABS: Calcium 8.7 mg/dL (8.4-10.2); Potassium 3.8 mmol/L (3.5-5.1)
[2018-03-29] MEDS: IPRATROPIUM-ALBUTEROL 3 ML NEB INHALATION SCH ×4 (08:27→19:54)
[2018-03-29] MEDS: ASPIRIN 81 MG PO SCH (08:38)
[2018-03-29] MEDS: ATENOLOL 25 MG TAB PO SCH ×2 (08:38→20:22)
[2018-03-29] MEDS: AZITHROMYCIN 500 MG TAB PO SCH (08:38)
[2018-03-29] MEDS: APIXABAN 2.5 MG TABLET PO SCH ×2 (08:38→20:21)
[2018-03-29] MEDS: AMIODARONE 200 MG TAB PO SCH (08:38)
[2018-03-29] MEDS: CHOLECALCIFEROL 1,000 UNIT TAB PO SCH (08:39)
[2018-03-29] MEDS: LISINOPRIL 20 MG TAB PO SCH (08:40)
[2018-03-29] MEDS: SPIRONOLACTONE 25 MG TAB PO SCH (08:40)
[2018-03-29] MEDS: TAMSULOSIN 0.4 MG CAP.ER.24H PO SCH (08:40)
[2018-03-29] MEDS: FOLIC ACID 1 MG TAB PO SCH (08:40)
[2018-03-29] MEDS: metFORMIN 500 MG TAB PO SCH ×2 (08:40→20:22)
[2018-03-29] MEDS: INSULIN DETEMIR 100 UNIT/ML 10 ML VIAL SQ SCH ×2 (08:43→21:58)
[2018-03-29] MEDS: cefTRIAXone IN SWFI 1,000 MG/10 ML SYRINGE IVP SCH (08:43)
--- NOTE | 2018-03-29 08:48 | XR ---
EXAMINATION TYPE: XR chest 1V portable DATE OF EXAM: 03/29/2018 COMPARISON: Prior chest x-ray 03/28/2018 HISTORY: Congestive heart failure TECHNIQUE: Single frontal view of the chest is obtained. FINDINGS: Bilateral pleural-parenchymal changes are stable. Patient is post median sternotomy and th e heart is enlarged. Interstitium is increased. No evident pneumothorax. IMPRESSION: Findings suggest bilateral pneumonia, component of volume overload, congestive heart fail ure not excluded. Follow-up to resolution. Consider chest CT.
[2018-03-29] MEDS ORDERED: ATENOLOL 25 MG TAB PO SCH (09:00)
[2018-03-29] MEDS ORDERED: amLODIPine 10 MG TAB PO SCH (09:00)
--- NOTE | 2018-03-29 10:33 | P.CRDCN ---
History of Present Illness Consult date: 03/29/18 Requesting physician: Ann Hurley Consult reason: congestive heart failure Chief complaint: Shortness of breath and cough, recent fall History of present illness: This is a 77-year-old gentleman who follows regularly with Dr. Winters in the [place] office, he has known history of paroxysmal atrial fibrillation, diabetes, hypertension, hyperlipidemia, peripheral stenting, coronary artery disease with prior bypass surgery. He states that he presented to [facility] with symptoms of progressively worsening shortness of breath with associated cough, chills, significant bilateral peripheral edema. Patient also states that he had a recent fall, but he states he dropped a dime on the floor, lost his balance and fell. There was no syncopal episode at that time. Cardiology consultation was requested because of congestive heart failure. CT of the brain performed at [facility] revealed low attenuation in the periventricular white matter likely refractory microvascular ischemic change. Old right basal ganglia infarct. Blood pressure at [facility] 152/60, heart rate in the 70s, 92% on room air. Sodium 137, potassium 4.1 chloride 107, CO2 19, BUN 29, creatinine 1.1. BNP level 1270., white blood cell count 14.7, hemoglobin 11.3, hematocrit 34.5, platelets 126. Rest x-ray performed at [facility] revealed bilateral infiltrates, patient was initiated on IV antibiotics, oxygen saturation at [facility] in the low 90s on 8 L of oxygen decision was made to transfer the patient to [facility] for further treatment. EKG performed at [facility] showed a normal sinus rhythm with nonspecific ST-T wave changes. Chest x-ray performed on arrival here revealed a bilateral bronchopneumonia with prominent right pleural effusion. Repeat chest x-ray this morning showed bilateral pneumonia and a component of volume overload congestive heart failure not excluded. EKG on arrival shows a normal sinus rhythm. White blood cell count on arrival 13.4, 10.6 this morning, hemoglobin 11.4, 10.0 this morning. Platelet count 133 and 114 this morning. Sodium 141, potassium 3.8, BUN 35, creatinine 1.1. Magnesium level I.4. Troponin 0.030. BNP level 9770. Influenza A and B-. Temperature on arrival 100.6. At the time of my examination this morning, patient is sitting up in his chair at bedside. He does have 2-3+ peripheral edema, Buck catheter is in place draining adequate amounts of urine. Still complains of feeling short of breath. Patient is currently on IV Lasix 40 mg every 8 hourly as well as IV antibiotics. Past Medical History Past Medical History: Atrial Fibrillation, Coronary Artery Disease (CAD), Heart Failure, Diabetes Mellitus, Hyperlipidemia, Hypertension, Myocardial Infarction (MS), Prostate Disorder Additional Past Medical History / Comment(s): sores on arms, upper bridge,past uti,NTERMITTENT CLAUDICATION, PAD pt was admited to [facility] 07/2014 for CHF and A-fib Last Myocardial Infarction Date:: unknown History of Any Multi-Drug Resistant Organisms: None Reported Past Surgical History: Coronary Bypass/CABG, Heart Catheterization Additional Past Surgical History / Comment(s): quad VESSEL CABG 2001( LEHMAN TO LAD, MONTY TO RCA, SVG TO KATT AND OM-EF 45%), susanna cataracts, 08-26-15 ABD AORTIC AORTOGRAM,SUSANNA LOWER EXTREMITY RUNNOFF,BALLOON ANGIOPLASTY RT SFA,STENT TO SFA. Past Anesthesia/Blood Transfusion Reactions: No Reported Reaction Smoking Status: Former smoker - Past Family History Mother Family Medical History: No Reported History Additional Family Medical History / Comment(s): PT POOR HISTORIAN ON PARENTS HX - ALL HE KNEW WAS SHE HAD TB WHEN SHE WAS YOUNGER Father Family Medical History: Dementia Additional Family Medical History / Comment(s): CARDAIC DISEASE Medications and Allergies Home Medications Medication Instructions Recorded Confirmed Type Aspirin 81 mg PO DAILY 08/17/15 03/28/18 History Folic Acid 1 mg PO DAILY 08/17/15 03/28/18 History Insulin Aspart Protam & Aspart 10 unit SQ AC-TID 08/17/15 03/28/18 History [NovoLOG MIX 70-30 Flexpen] Lisinopril 40 mg PO DAILY 08/17/15 03/28/18 History Lovastatin [Mevacor] 40 mg PO W/SUPPER 08/17/15 03/28/18 History Nitroglycerin Sl Tabs [Nitrostat] 0.4 mg SUBLINGUAL Q5M PRN 08/17/15 03/28/18 History Spironolactone [Aldactone] 25 mg PO DAILY 08/17/15 03/28/18 History metFORMIN HCL 1,000 mg PO BID 08/17/15 03/28/18 History Apixaban [Eliquis] 2.5 mg PO BID #60 tablet 12/10/16 03/28/18 Rx Atenolol [Tenormin] 25 mg PO DAILY #30 tab 12/10/16 03/28/18 Rx Amiodarone [Cordarone] 200 mg PO DAILY 03/28/18 03/28/18 History Cholecalciferol (Vitamin D3) 2,000 unit PO DAILY 03/28/18 03/28/18 History [Vitamin D3] Insulin Glargine,Hum.rec.anlog 24 unit SQ DAILY 03/28/18 03/28/18 History [Basaglar Kwikpen U-100] Insulin Glargine,Hum.rec.anlog 25 unit SQ HS 03/28/18 03/28/18 History [Basaglar Kwikpen U-100] Tamsulosin HCl [Flomax] 0.4 mg PO DAILY 03/28/18 03/28/18 History amLODIPine [Norvasc] 10 mg PO DAILY 03/28/18 03/28/18 History Allergies Allergy/AdvReac Type Severity Reaction Status Date / Time No Known Allergies Allergy Verified 03/28/18 13:53 Physical Exam Vitals: Vital Signs Temp Pulse Pulse Resp BP BP Pulse Ox 03/29/18 08:37 63 03/29/18 08:27 60 92 L 03/29/18 08:00 62 16 128/58 99 03/29/18 03:54 54 L 18 132/78 97 03/29/18 00:00 97.8 F 70 18 120/62 96 03/28/18 20:30 72 03/28/18 20:18 71 03/28/18 20:00 97.4 F L 75 20 128/62 95 03/28/18 16:32 98 03/28/18 16:07 99.2 F 76 29 H 160/69 91 L 03/28/18 16:00 97.7 F 74 20 137/89 92 L 03/28/18 15:38 99.1 F 82 30 H 157/67 90 L 03/28/18 15:11 73 18 03/28/18 15:02 73 18 03/28/18 14:37 73 32 H 144/67 93 L 03/28/18 13:27 80 35 H 158/109 90 L 03/28/18 12:59 100 F H 77 16 149/113 91 L Intake and Output 03/28/18 03/29/18 03/29/18 22:59 06:59 14:59 Intake Total 240 240 118 Output Total 1250 Balance 240 -1010 118 Intake: Oral 240 240 118 Output: Urine 1250 Uretheral (Buck) 800 Other: Voiding Method Indwelling Catheter Indwelling Catheter Weight 99.79 kg 97.5 kg PHYSICAL EXAMINATION: GENERAL: 77-year-old gentleman experiencing mild shortness of breath that time of my examination HEENT: Head is atraumatic, normocephalic. Pupils equal, round. Sclera anicteric. Conjunctiva are clear. Mucous membranes of the mouth are moist. Neck is supple. There is elevated jugular venous pressure.] bruit is heard. HEART EXAMINATION: Heart S1 and S2 irregularly irregular systolic murmur heard CHEST EXAMINATION: Lungs reveal significantly diminished air entry bilaterally, coarse rales heard. ABDOMEN: Soft, nontender. Bowel sounds are heard. No organomegaly noted. EXTREMITIES: 1+ peripheral pulses to the lower extremity with 2-3+ bilateral peripheral edema. NEUROLOGIC patient is awake, alert and oriented -3. . Results 03/29/18 06:12 03/29/18 06:12 Cardiac Enzymes 03/28/18 03/28/18 Range/Units 13:10 13:10 AST 22 (17-59) U/L CK-MB (CK-2) 1.9 (0.0-2.4) ng/mL Troponin I 0.030 (0.000-0.034) ng/mL Coagulation 03/28/18 Range/Units 13:10 PT 14.1 H (9.0-12.0) sec APTT 27.9 (22.0-30.0) sec CBC 03/28/18 03/29/18 Range/Units 13:10 06:12 WBC 13.4 H 10.6 (3.8-10.6) k/uL RBC 4.24 L 3.68 L (4.30-5.90) m/uL Hgb 11.4 L 10.0 L (13.0-17.5) gm/dL Hct 36.2 L 31.1 L (39.0-53.0) % Plt Count 133 L 114 L (150-450) k/uL Comprehensive Metabolic Panel 03/28/18 03/29/18 Range/Units 13:10 06:12 Sodium 143 141 (137-145) mmol/L Potassium 4.1 3.8 (3.5-5.1) mmol/L Chloride 106 104 (98-107) mmol/L Carbon Dioxide 17 L 24 (22-30) mmol/L BUN 30 H 35 H (9-20) mg/dL Creatinine 1.05 1.11 (0.66-1.25) mg/dL Glucose 182 H 104 H (74-99) mg/dL Calcium 9.1 8.7 (8.4-10.2) mg/dL AST 22 (17-59) U/L ALT 22 (21-72) U/L Alkaline Phosphatase 87 (38-126) U/L Total Protein 6.2 L (6.3-8.2) g/dL Albumin 3.8 (3.5-5.0) g/dL Current Medications Generic Name Dose Route Start Last Admin Trade Name Freq PRN Reason Stop Dose Admin Albuterol/Ipratropium 3 ml 03/28/18 14:57 Duoneb 0.5 Mg-3 Mg/3 Ml Soln INHALATION RT-QID PRN Shortness Of Breath Or Wheezing Albuterol/Ipratropium 3 ml 03/28/18 20:00 03/29/18 08:27 Duoneb 0.5 Mg-3 Mg/3 Ml Soln INHALATION 3 ml RT-QID HAYDEN Administration Amiodarone HCl 200 mg 03/29/18 09:00 03/29/18 08:38 Cordarone PO 200 mg DAILY HAYDEN Administration Apixaban 2.5 mg 03/28/18 21:00 03/29/18 08:38 Eliquis PO 2.5 mg BID HAYDEN Administration Aspirin 81 mg 03/29/18 09:00 03/29/18 08:38 Aspirin PO 81 mg DAILY HAYDEN Administration Atenolol 25 mg 03/28/18 21:00 03/29/18 08:38 Tenormin PO 25 mg BID HAYDEN Administration Atorvastatin Calcium 10 mg 03/28/18 17:30 03/28/18 18:17 Lipitor PO 10 mg W/SUPPER HAYDEN Administration Azithromycin 500 mg 03/29/18 09:00 03/29/18 08:38 Zithromax PO 500 mg DAILY HAYDEN Administration Ceftriaxone Sodium 1,000 mg 03/29/18 09:00 03/29/18 08:43 Rocephin IVP 04/01/18 09:01 1,000 mg Q24HR HAYDEN Administration Cholecalciferol 2,000 unit 03/29/18 09:00 03/29/18 08:39 Vitamin D3 PO 2,000 unit DAILY HAYDEN Administration Folic Acid 1 mg 03/29/18 12:00 03/29/18 08:40 Folic Acid PO 1 mg 1200 HAYDEN Administration Furosemide 40 mg 03/28/18 21:00 03/29/18 06:18 Lasix IV 40 mg Q8H HAYDEN Administration Insulin Aspart 0 unit 03/28/18 17:30 03/29/18 06:23 Novolog SQ Not Given ACHS [facility] Protocol Insulin Detemir 25 unit 03/28/18 21:00 03/28/18 21:05 Levemir SQ 25 unit HS HAYDEN Administration Insulin Detemir 24 unit 03/29/18 09:00 03/29/18 08:43 Levemir SQ 24 unit DAILY HAYDEN Administration Lisinopril 40 mg 03/29/18 09:00 03/29/18 08:40 Zestril PO 40 mg DAILY HAYDEN Administration Metformin HCl 1,000 mg 03/28/18 21:00 03/29/18 08:40 Glucophage PO 1,000 mg BID HAYDEN Administration Miscellaneous Information 1 each 03/28/18 14:37 Pneumonia Protocol Utilized PO ONCE PRN Per Protocol Nitroglycerin 1 inch 03/28/18 18:00 03/29/18 06:18 Nitro-Bid Oint TOPICAL 1 inch Q6HR HAYDEN Administration Nitroglycerin 0.4 mg 03/28/18 17:14 Nitrostat SUBLINGUAL Q5M PRN Chest Pain Pantoprazole Sodium 40 mg 03/28/18 17:30 03/29/18 06:18 Protonix PO 40 mg AC-BRKFST HAYDEN Administration Spironolactone 25 mg 03/29/18 09:00 03/29/18 08:40 Aldactone PO 25 mg DAILY HAYDEN Administration Tamsulosin HCl 0.4 mg 03/29/18 09:00 03/29/18 08:40 Flomax PO 0.4 mg DAILY HAYDEN Administration Intake and Output 03/28/18 03/29/18 03/29/18 22:59 06:59 14:59 Intake Total 240 240 118 Output Total 1250 Balance 240 -1010 118 Intake: Oral 240 240 118 Output: Urine 1250 Uretheral (Buck) 800 Other: Voiding Method Indwelling Catheter Indwelling Catheter Weight 99.79 kg 97.5 kg 03/29/18 06:12 03/29/18 06:12 EKG Interpretations (text) EKG shows normal sinus rhythm with no acute changes. Assessment and Plan Plan: Assessment and plan #1 symptoms of progressively worsening shortness of breath with associated peripheral edema and fever and chills, combination of bilateral pneumonia and congestive heart failur systolic acute on chronic #2 diabetes #3 hypertension #4 hyperlipidemia #5 paroxysmal atrial fibrillation #6 coronary artery disease with prior bypass surgery #10 PAD with prior stenting Plan Will obtain Dr. Winters's office progress note, continue IV Lasix as well as IV antibiotics. Continue beta haleigh, LOULOU inhibitor, and Aldactone. Repeat echocardiogram with Doppler study. Further recommendations to follow. DNP note has been reviewed, I agree with a documented findings and plan of care. Patient was seen and examined.
[2018-03-29 10:55] VITALS: BMI 30.8
--- NOTE | 2018-03-29 11:00 | CDI ---
Last Revision, September 2017 Documentation Clarification Form Date: 03/29/18 1053 From: Latricia Purcell RN, CCDS Admit Date: 03/28/2018 2:38:00 PM Patient Name: Luan Powell Visit Number: [id number] ATTENTION: The Clinical Documentation Specialists (CDI) and [facility] Coding Staff appreciate your assistance in clarifying documentation. Please respond to the clarification below the line at the bottom and electronically sign. The CDI & [facility] Coding staff will review the response and follow-up if needed. Please note: Queries are made part of the Legal Health Record. If you have any questions, please contact the author of this message via ITS. Dr. Ann Hurley Altered mental status was documented in the EC notes, HPI Patient history/risk factors: CAD, CHF, DM2, HTN, hyperlipidemia Clinical Indicators: Labs: Hgb 11.4/10, neutrophils 12.5/9.4, plasma la, t ck CXR: "Findings suggest bilateral pneumonia, component of volume overload, congestive heart failure not excluded." Pt is admitted with pneumonia Treatment: Lasix 40 mg IVP x1 Iv Mag IV Rocephin 1 gm Q 24 hrs In your professional opinion, please clarify the etiology of the altered mental status, if known. Encephalopathy (specify Type- Toxic, Metabolic, Anoxic, Hepatic, Hypertensive) Dementia (if know, specify Type and if with/without Behavioral Disturbance) Encephalopathy (specify Type and Underlying Medical Illness) Other condition (please specify) Unable to determine Please continue to document in your progress notes and discharge summary in order to capture severity of illness and risk of mortality. Include clinical findings that support your diagnosis. Unable to determine MTDD
[2018-03-29 11:46] LABS: Glucose,Whole Blood 68 mg/dL (75-99)
[2018-03-29 12:01] LABS: Glucose,Whole Blood 72 mg/dL (75-99)
[2018-03-29] MEDS ORDERED: RX INFO: IV CONTRAST WAS GIVEN 1 EACH MISC MISCELLANE PRN (12:01)
--- NOTE | 2018-03-29 12:01 | P.CNPUL ---
History of Present Illness Consult date: 03/29/18 Requesting physician: Ann Hurley Reason for consult: dyspnea, abnormal CXR/CT Chief complaint: Shortness of breath History of present illness: This is a pleasant 77-year-old gentleman who follows with Dr. Adhikari in [place]. He has a history of coronary artery disease with previous coronary artery bypass grafting in 2001, peripheral vascular disease with previous stenting to the SFA, atrial fibrillation anticoagulated with Eliquis, congestive heart failure, hypertension, hyperlipidemia, diabetes mellitus. He has a 10 year pack per day smoking history however states quit in 2001 following his bypass. He had presented to [facility] after sustaining a fall while trying to pepper picker a time. He states he did not lose consciousness. He also noted some increasing shortness of breath. While at [place] his chest x-ray revealed bilateral infiltrates/effusions. Bilateral lower extremity edema. ProBNP level was 1270. He did have a T-max of 100.0. He did become quite hypoxic requiring 8 L of high flow nasal cannula to maintain O2 saturations in the 90s. Based on this he was referred here for further evaluation and treatment. This morning's chest x-ray continues to show bilateral infiltrates/effusions. Slightly improved today as compared to yesterday. White count 10.6. Hemoglobin 10.0. Creatinine 1.11. He is seen today in consultation. He is currently sitting up in a chair at the bedside. He is awake and alert in no acute distress. He states he is breathing easier today as compared to yesterday. Currently afebrile. Down to 6 L high flow nasal cannula and maintaining O2 saturations in the high 90s. He has been hemodynamically stable. He has been initiated on bronchodilators, antibiotics in the form of ceftriaxone and azithromycin, IV diuretics. Echocardiogram pending. Review of Systems Constitutional: Reports weight gain Eyes: denies blurred vision, denies decreased vision Ears: bilateral: decreased hearing Ears, nose, mouth and throat: Denies headache, Denies sore throat Cardiovascular: Reports decreased exercise tolerance, Reports dyspnea on exertion, Reports edema, Reports leg edema, Reports shortness of breath Respiratory: Reports dyspnea Gastrointestinal: Denies abdominal pain, Denies diarrhea, Denies nausea, Denies vomiting Genitourinary: Reports as per HPI Musculoskeletal: Reports gait dysfunction, Reports low back pain Musculoskeletal: bilateral: ankle swelling Integumentary: Reports color changes Neurological: Reports gait dysfunction, Reports weakness Psychiatric: Denies anxiety, Denies depression Endocrine: Denies fatigue, Denies weight change Hematologic/Lymphatic: Reports as per HPI Allergic/Immunologic: Reports as per HPI Past Medical History Past Medical History: Atrial Fibrillation, Coronary Artery Disease (CAD), Heart Failure, Diabetes Mellitus, Hyperlipidemia, Hypertension, Myocardial Infarction ([place]), Prostate Disorder Additional Past Medical History / Comment(s): sores on arms, upper bridge,past uti,NTERMITTENT CLAUDICATION, PAD pt was admited to [facility] 07/2014 for CHF and A-fib Last Myocardial Infarction Date:: unknown History of Any Multi-Drug Resistant Organisms: None Reported Past Surgical History: Coronary Bypass/CABG, Heart Catheterization Additional Past Surgical History / Comment(s): quad VESSEL CABG 2001( LEHMAN TO LAD, MONTY TO RCA, SVG TO KATT AND OM-EF 45%), susanna cataracts, 08-26-15 ABD AORTIC AORTOGRAM,SUSANNA LOWER EXTREMITY RUNNOFF,BALLOON ANGIOPLASTY RT SFA,STENT TO SFA. Past Anesthesia/Blood Transfusion Reactions: No Reported Reaction Smoking Status: Former smoker - Past Family History Mother Family Medical History: No Reported History Additional Family Medical History / Comment(s): PT POOR HISTORIAN ON PARENTS HX - ALL HE KNEW WAS SHE HAD TB WHEN SHE WAS YOUNGER Father Family Medical History: Dementia Additional Family Medical History / Comment(s): CARDAIC DISEASE Medications and Allergies Home Medications Medication Instructions Recorded Confirmed Type Aspirin 81 mg PO DAILY 08/17/15 03/28/18 History Folic Acid 1 mg PO DAILY 08/17/15 03/28/18 History Insulin Aspart Protam & Aspart 10 unit SQ AC-TID 08/17/15 03/28/18 History [NovoLOG MIX 70-30 Flexpen] Lisinopril 40 mg PO DAILY 08/17/15 03/28/18 History Lovastatin [Mevacor] 40 mg PO W/SUPPER 08/17/15 03/28/18 History Nitroglycerin Sl Tabs [Nitrostat] 0.4 mg SUBLINGUAL Q5M PRN 08/17/15 03/28/18 History Spironolactone [Aldactone] 25 mg PO DAILY 08/17/15 03/28/18 History metFORMIN HCL 1,000 mg PO BID 08/17/15 03/28/18 History Apixaban [Eliquis] 2.5 mg PO BID #60 tablet 12/10/16 03/28/18 Rx Atenolol [Tenormin] 25 mg PO DAILY #30 tab 12/10/16 03/28/18 Rx Amiodarone [Cordarone] 200 mg PO DAILY 03/28/18 03/28/18 History Cholecalciferol (Vitamin D3) 2,000 unit PO DAILY 03/28/18 03/28/18 History [Vitamin D3] Insulin Glargine,Hum.rec.anlog 24 unit SQ DAILY 03/28/18 03/28/18 History [Basaglar Kwikpen U-100] Insulin Glargine,Hum.rec.anlog 25 unit SQ HS 03/28/18 03/28/18 History [Basaglar Kwikpen U-100] Tamsulosin HCl [Flomax] 0.4 mg PO DAILY 03/28/18 03/28/18 History amLODIPine [Norvasc] 10 mg PO DAILY 03/28/18 03/28/18 History Allergies Allergy/AdvReac Type Severity Reaction Status Date / Time No Known Allergies Allergy Verified 03/28/18 13:53 Physical Exam Vitals: Vital Signs Temp Pulse Pulse Resp BP BP Pulse Ox 03/29/18 11:27 51 L 16 108/53 96 03/29/18 11:23 57 L 03/29/18 11:09 16 03/29/18 08:37 63 03/29/18 08:27 60 92 L 03/29/18 08:00 62 16 128/58 99 03/29/18 03:54 54 L 18 132/78 97 03/29/18 00:00 97.8 F 70 18 120/62 96 03/28/18 20:30 72 03/28/18 20:18 71 03/28/18 20:00 97.4 F L 75 20 128/62 95 03/28/18 16:32 98 03/28/18 16:07 99.2 F 76 29 H 160/69 91 L 03/28/18 16:00 97.7 F 74 20 137/89 92 L 03/28/18 15:38 99.1 F 82 30 H 157/67 90 L 03/28/18 15:11 73 18 03/28/18 15:02 73 18 03/28/18 14:37 73 32 H 144/67 93 L 03/28/18 13:27 80 35 H 158/109 90 L 03/28/18 12:59 100 F H 77 16 149/113 91 L Intake and Output 03/28/18 03/29/18 03/29/18 22:59 06:59 14:59 Intake Total 240 240 118 Output Total 1250 Balance 240 -1010 118 Intake: Oral 240 240 118 Output: Urine 1250 Uretheral (Buck) 800 Other: Voiding Method Indwelling Catheter Indwelling Catheter Indwelling Catheter Weight 99.79 kg 97.5 kg 97.5 kg - Constitutional General appearance: obese - EENT Eyes: EOMI, PERRLA ENT: hard of hearing Ears: bilateral: normal - Neck Neck: normal ROM Carotids: bilateral: upstroke normal Thyroid: bilateral: normal size - Respiratory Respiratory: bilateral: rales, rhonchi - Cardiovascular Rhythm: regular Heart sounds: normal: S1, S2 - Gastrointestinal General gastrointestinal: no organomegaly, soft, no tenderness - Integumentary Integumentary: normal - Neurologic Neurologic: CNII-XII intact - Musculoskeletal Musculoskeletal: generalized weakness - Psychiatric Psychiatric: A&O x's 3, intact judgment & insight Results - Laboratory Findings CBC and BMP: 03/29/18 06:12 03/29/18 06:12 PT/INR, D-dimer PT 14.1 sec (9.0-12.0) H 03/28/18 13:10 INR 1.5 (<1.2) H 03/28/18 13:10 Abnormal lab findings: Abnormal Labs 03/28/18 03/28/18 03/28/18 13:10 13:10 13:10 WBC 13.4 H RBC 4.24 L Hgb 11.4 L Hct 36.2 L Plt Count 133 L Neutrophils # 12.5 H Lymphocytes # 0.4 L PT INR Carbon Dioxide 17 L BUN 30 H Glucose 182 H POC Glucose (mg/dL) Hemoglobin A1c Plasma Lactic Acid Denzel Magnesium 1.4 L Total Bilirubin 1.5 H Total Creatine Kinase 466 H Total Protein 6.2 L 03/28/18 03/28/18 03/28/18 13:10 13:10 16:41 WBC RBC Hgb Hct Plt Count Neutrophils # Lymphocytes # PT 14.1 H INR 1.5 H Carbon Dioxide BUN Glucose POC Glucose (mg/dL) 221 H Hemoglobin A1c Plasma Lactic Acid Denzel 2.5 H* Magnesium Total Bilirubin Total Creatine Kinase Total Protein 03/28/18 03/28/18 03/29/18 17:54 20:31 06:12 WBC RBC 3.68 L Hgb 10.0 L Hct 31.1 L Plt Count 114 L Neutrophils # 9.4 H Lymphocytes # 0.7 L PT INR Carbon Dioxide BUN Glucose POC Glucose (mg/dL) 246 H Hemoglobin A1c 6.2 H Plasma Lactic Acid Denzel Magnesium Total Bilirubin Total Creatine Kinase Total Protein 03/29/18 03/29/18 06:12 06:20 WBC RBC Hgb Hct Plt Count Neutrophils # Lymphocytes # PT INR Carbon Dioxide BUN 35 H Glucose 104 H POC Glucose (mg/dL) 128 H Hemoglobin A1c Plasma Lactic Acid Denzel Magnesium Total Bilirubin Total Creatine Kinase Total Protein - Diagnostic Findings Chest x-ray: image reviewed Assessment and Plan Assessment: Impression: #1 Acute hypoxic respiratory failure secondary to an acute exacerbation of systolic congestive heart failure in a patient with previous echocardiogram revealing ejection fraction between 20 and 25%. #2 Acute hypoxic respiratory failure secondary to bilateral pneumonia. #3 History of atrial fibrillation adequately regulated with Eliquis. #4 History of coronary artery disease with previous coronary artery bypass grafting. #5 Hypertension. #6 Hyperlipidemia. #7 Diabetes mellitus. #8 Peripheral vascular disease with previous stenting of the right SFA. #9 History of chronic tobacco dependence however quit 2001. Plan: The patient was seen and evaluated by Dr. Samano. Chest x-ray was reviewed mostly a picture of congestive heart failure. We will obtain a computed tomography scan of the chest for further evaluation. We'll continue with IV diuretics. We'll continue with bronchodilators and antibiotics in the form of ceftriaxone and azithromycin. We will titrate down his FiO2 as tolerated. We will increase his activity as tolerated. We'll continue to follow. I, the cosigning physician, performed a history & physical examination of the patient. Lungs sounds with crackles in the bilateral bases. Maintaining good O2 saturations in the 90s on 6 L/m per nasal cannula. I discussed the assessment and plan of care with my nurse practitioner, Tessa Foster. I attest to the above note as dictated by her. Time with Patient: Greater than 30
--- NOTE | 2018-03-29 12:37 | ECHOF ---
Referral Reason:chf MEASUREMENTS -------- HEIGHT: 152.4 cm WEIGHT: 97.1 kg BP: RVIDd: 3.5 cm (< 3.3) IVSd: 1.4 cm (0.6 - 1.1) LVIDd: 5.1 cm (3.9 - 5.3) LVPWd: 1.3 cm (0.6 - 1.1) IVSs: 1.6 cm LVIDs: 4.2 cm LVPWs: 1.8 cm LA Diam: 4.8 cm (2.7 - 3.8) Ao Diam: 4.1 cm (2.0 - 3.7) AV Cusp: 1.8 cm (1.5 - 2.6) LA Diam: 3.9 cm (2.7 - 3.8) MV EXCURSION: 18.742 mm (> 18.000) MV EF SLOPE: 48 mm/s (70 - 150) EPSS: 1.3 cm MV E Leonard: 1.03 m/s MV DecT: 180 ms MV A Leonard: 0.56 m/s MV E/A Ratio: 1.84 RAP: 5.00 mmHg RVSP: 12.25 mmHg FINDINGS -------- Sinus rhythm. This was a techncally difficult study with suboptimal views, , Lumason utilized for enhancement of im ages. The left ventricular size is normal. There is moderate concentric left ventricular hypertrophy. O verall left ventricular systolic function is moderately impaired with, an EF between 35 - 40 %. Pos terior hypokinesis Inferior Hypokinesis The right ventricle is moderately enlarged. The left atrial size is normal. The right atrial size is normal. 5.0mg OF Lumason UTLIZED: 2 OR MORE WALL SEGMENTS NOT VISUALIZED. There is mild aortic valve sclerosis. There is no evidence of aortic regurgitation. Mild mitral annular calcification present. Mild mitral regurgitation is present. Mild tricuspid regurgitation present. There is no evidence of pulmonary hypertension. The right v entricular systolic pressure, as measured by Doppler, is 12.25mmHg. There is no pulmonic regurgitation present. Aortic root is dilated and measures 4.1cm. There is no pericardial effusion. CONCLUSIONS -------- 1. This was a techncally difficult study with suboptimal views, , Lumason utilized for enhancement of images. 2. The left ventricular size is normal. 3. There is moderate concentric left ventricular hypertrophy. 4. Overall left ventricular systolic function is moderately impaired with, an EF between 35 - 40 %. 5. Posterior hypokinesis 6. Inferior Hypokinesis 7. The right ventricle is moderately enlarged. 8. The left atrial size is normal. 9. The right atrial size is normal. 10. Aortic root is dilated and measures 4.1cm. 11. 5.0mg OF Lumason UTLIZED: 2 OR MORE WALL SEGMENTS NOT VISUALIZED. 12. There is mild aortic valve sclerosis. 13. Mild mitral annular calcification present. 14. Mild mitral regurgitation is present. 15. Mild tricuspid regurgitation present. 16. There is no evidence of pulmonary hypertension. 17. The right ventricular systolic pressure, as measured by Doppler, is 12.25mmHg. 18. There is no pulmonic regurgitation present. 19. There is no pericardial effusion. SUMMER ASSOCIATE: Ester Fitch RDCS
--- NOTE | 2018-03-29 15:08 | PN ---
PROGRESS NOTE DATE OF SERVICE: 03/29/2018 This is a 77-year-old gentleman admitted with bilateral leg swelling and features of CHF, is being closely monitored. The patient has mostly CHF and possibly some variation of some pneumonia also. The patient is on intravenous diuretics and a 2D echo showed ejection fraction 35%-40% with posterior inferior wall hypokinesis and multiple mild valvular abnormalities, also. Cardiology and Pulmonology are following the patient closely. The chest x-ray reviewed. PAST MEDICAL HISTORY: Reviewed. REVIEW OF SYSTEMS: CARDIOVASCULAR: As mentioned earlier. RESPIRATORY: As mentioned earlier. GI: No nausea. : No dysuria. NERVOUS SYSTEM: No numbness or weakness. CURRENT MEDICATIONS: Reviewed and include: 1. DuoNeb q.i.d. and p.r.n. 2. Cordarone 200 mg p.o. daily. 3. Eliquis 2.5 mg b.i.d. 4. Aspirin 81 mg p.o. daily. 5. Tenormin 25 mg p.o. b.i.d. 6. Lipitor 10 mg at supper. 7. Zithromax 500 mg p.o. daily. 8. Rocephin 1 g IV daily. 9. Vitamin D3 two thousand daily. 10.Folic acid 1 mg daily. 11.Lasix 40 mg IV q.8. 12.NovoLog scale. 13.Levemir 20 units subcu q.h.s. 14.Levemir 24 units subcu daily. 15.Zestril 40 mg p.o. daily. 16.Glucophage 1000 mg p.o. b.i.d. 17.P.r.n. medications. 18.Nitrostat 0.4 mg sublingual p.r.n. 19.Protonix 40 mg daily. 20.Aldactone 25 mg. 21.Flomax 0.4 daily. PHYSICAL EXAM: Patient is alert, oriented x2. Pulse is 51, blood pressure 108/53, respirations 16, temp is normal, pulse ox 96% on 4 L. HEENT: Conjunctivae normal. Oral mucosa moist. Neck is no jugular venous distention. No lymph node enlargement. CARDIOVASCULAR: S1, S2 muffled. RESPIRATORY: Breath sounds diminished at the bases, bilateral scattered rhonchi , no crackles. Expiratory wheezing also present. ABDOMEN: Soft, nontender. No mass. LEGS: Bilateral leg edema NERVOUS SYSTEM: Higher functions as mentioned earlier. Moves all four limbs. No focal deficits LYMPHATICS: No lymph node enlargement in the neck or axillae. SKIN: No ulcer, rash or bleeding. LABS: WBC is 10.2, hemoglobin is 10 and creatinine is 1.11. Chest x-ray reviewed personally. ASSESSMENT: 1. Congestive heart failure acute exacerbation with acute on chronic systolic dysfunction, ejection fraction 35%-40%. 2. Possible bilateral pneumonia. 3. Increased WBC. 4. Gait dysfunction. 5. Anemia. 6. History atrial fibrillation. 7. History of coronary artery disease, coronary artery bypass grafting. 8. History of diabetes type 2. 9. Hypertension. 10.Hyperlipidemia. 11.History of myocardial infarction. 12.History of peripheral vascular disease. 13.History of cataracts. 14.Remote history of nicotine dependence. RECOMMENDATION AND DISCUSSION: In this 77-year-old gentleman who presented with multiple complex medical issues , will monitor the patient closely, continue with the current management and symptomatic treatment. Otherwise, at this time I recommend continue the diuretics and antibiotics. Continue to follow with Cardiology and Pulmonology. The 2D echo results are noted. Fluid restriction of 1200 cc per 24 hours and further recommendations to follow. Also recommend PT, OT evaluation and evaluate the patient for possible ECF rehab also. Once again, discussed with the patient. Further recommendations to follow. MMODL / IJN: [id number] / SALVADOR
--- NOTE | 2018-03-29 15:42 | CT ---
EXAMINATION TYPE: CT chest w con DATE OF EXAM: 03/29/2018 COMPARISON: NONE HISTORY: Bilateral effusion/infiltrates CT DLP: 731 mGycm Automated exposure control for dose reduction was used. CONTRAST: CT scan of the chest is performed with IV Contrast, patient injected with 100 mL of Isovue 300. FINDINGS: LUNGS: Patchy areas of airspace consolidation left upper lobe, right middle lobe and right lower lobe . Moderate bilateral pleural effusions right greater than left measuring 5.0 cm AP dimension on the right and 3 cm on the left. MEDIASTINUM: There are no greater than 1 cm hilar or mediastinal lymph nodes. No pericardial effusi on is seen. Thoracic aorta is of normal caliber. The heart is enlarged. UPPER ABDOMEN: Complex hypoattenuating mass upper pole left kidney. Malignancy is not excluded. Dedic ated CT of the kidneys is advised. Simple exophytic cyst upper pole left kidney. Thickening of the ad renal glands with nodular component left adrenal gland. OTHER: No additional significant abnormality is seen. IMPRESSION: 1. Findings felt to reflect bilateral pneumonia. Associated pleural effusions. Correlate clinically a nd progress studies are recommended. 2. Masslike area upper pole left kidney not appropriately characterized on this study however maligna ncy is not excluded. Dedicated CT of the kidneys is advised.
[2018-03-29] MEDS: ATORVASTATIN 10 MG TAB PO SCH (17:21)
[2018-03-29 17:26] LABS: Glucose,Whole Blood 97 mg/dL (75-99)
[2018-03-29 17:26] LABS: Glucose,Whole Blood 336 mg/dL (75-99)
[2018-03-29 21:36] LABS: Glucose,Whole Blood 78 mg/dL (75-99)
[2018-03-30 05:58] LABS: Glucose,Whole Blood 68 mg/dL (75-99)
[2018-03-30] MEDS: INSULIN ASPART 100 UNIT/ML 1 ML 10 ML VIAL SQ SCH ×4 (05:59→21:54)
[2018-03-30] MEDS: FUROSEMIDE 10 MG/ML 4 ML VIAL IV SCH ×3 (05:59→20:38)
[2018-03-30] MEDS: PANTOPRAZOLE 40 MG TABLET PO SCH (06:00)
[2018-03-30 06:09] LABS: Basophils % (A) 0 %; Eosinophils # (A) 0.1 k/uL (0-0.7); Eosinophils % (A) 1 %; HCT 30.3 % (39.0-53.0); HGB 9.7 gm/dL (13.0-17.5); Hypochromasia Slight; Lymphocytes # (A) 0.7 k/uL (1.0-4.8); Lymphocytes % (A) 8 %; MCH 27.3 pg (25.0-35.0); MCHC 32.1 g/dL (31.0-37.0); MCV 84.8 fL (80.0-100.0); Mean Platelet Volume 9.2; Monocytes # (A) 0.4 k/uL (0-1.0); Monocytes % (A) 4 %; Neutrophils # (A) 7.8 k/uL (1.3-7.7); Neutrophils % (A) 86 %; Platelet Count 129 k/uL (150-450); RBC 3.57 m/uL (4.30-5.90); RDW 15.2 % (11.5-15.5); WBC 9.1 k/uL (3.8-10.6)
[2018-03-30 06:16] LABS: Calcium 8.8 mg/dL (8.4-10.2); Potassium 3.8 mmol/L (3.5-5.1)
[2018-03-30 06:24] LABS: Glucose,Whole Blood 88 mg/dL (75-99)
[2018-03-30] MEDS: IPRATROPIUM-ALBUTEROL 3 ML NEB INHALATION SCH ×4 (07:16→19:44)
[2018-03-30] MEDS: ATENOLOL 25 MG TAB PO SCH ×2 (08:15→20:38)
[2018-03-30] MEDS: ASPIRIN 81 MG PO SCH (08:15)
[2018-03-30] MEDS: AMIODARONE 200 MG TAB PO SCH (08:15)
[2018-03-30] MEDS: APIXABAN 2.5 MG TABLET PO SCH ×2 (08:15→20:38)
[2018-03-30] MEDS: CHOLECALCIFEROL 1,000 UNIT TAB PO SCH (08:16)
[2018-03-30] MEDS: LISINOPRIL 20 MG TAB PO SCH (08:17)
[2018-03-30] MEDS: metFORMIN 500 MG TAB PO SCH ×2 (08:18→21:53)
[2018-03-30] MEDS: TAMSULOSIN 0.4 MG CAP.ER.24H PO SCH (08:18)
[2018-03-30] MEDS: SPIRONOLACTONE 25 MG TAB PO SCH (08:18)
[2018-03-30] MEDS: AZITHROMYCIN 500 MG TAB PO SCH (08:18)
[2018-03-30] MEDS: cefTRIAXone IN SWFI 1,000 MG/10 ML SYRINGE IVP SCH (08:20)
[2018-03-30] MEDS: INSULIN DETEMIR 100 UNIT/ML 10 ML VIAL SQ SCH ×2 (10:21→22:19)
--- NOTE | 2018-03-30 11:42 | P.PN ---
Subjective Progress Note Date: 03/30/18 Principal diagnosis: Acute exacerbation of chronic systolic congestive heart failure. This is a pleasant 77-year-old gentleman who follows with Dr. Adhikari in [place]. He has a history of coronary artery disease with previous coronary artery bypass grafting in 2001, peripheral vascular disease with previous stenting to the SFA, atrial fibrillation anticoagulated with Eliquis, congestive heart failure, hypertension, hyperlipidemia, diabetes mellitus. He has a 10 year pack per day smoking history however states quit in 2001 following his bypass. 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 He states he did not lose consciousness. He also noted some increasing shortness of breath. While at [place] his chest x-ray revealed bilateral infiltrates/effusions. Bilateral lower extremity edema. ProBNP level was 1270. He did have a T-max of 100.0. He did become quite hypoxic requiring 8 L of high flow nasal cannula to maintain O2 saturations in the 90s. Based on this he was referred here for further evaluation and treatment. This morning's chest x-ray continues to show bilateral infiltrates/effusions. Slightly improved today as compared to yesterday. White count 10.6. Hemoglobin 10.0. Creatinine 1.11. He is seen today in consultation. He is currently sitting up in a chair at the bedside. He is awake and alert in no acute distress. He states he is breathing easier today as compared to yesterday. Currently afebrile. Down to 6 L high flow nasal cannula and maintaining O2 saturations in the high 90s. He has been hemodynamically stable. He has been initiated on bronchodilators, antibiotics in the form of ceftriaxone and azithromycin, IV diuretics. Echocardiogram pending. The patient is seen again today 03/30/2018 in follow-up on the selective care unit. He is awake and alert in no acute distress. He is breathing quite a bit better today as compared to yesterday. Computed tomography scan of the chest reveals bilateral pleural effusions suggestive of congestive heart failure. Echocardiogram reveals impaired left ventricular systolic function with ejection fraction 35-40%. He remains on diuretics. Blood cultures reveals no growth. Urine culture reveals no growth. He is afebrile. Maintaining good O2 saturations in the upper 90s on 4 L/m per nasal cannula. Objective - Vital Signs Vital signs: Vital Signs Temp 96.8 F L 03/30/18 08:00 Pulse 56 L 03/30/18 11:12 Resp 18 03/30/18 08:00 BP 144/65 03/30/18 08:00 Pulse Ox 98 03/30/18 08:00 Intake & Output 03/29/18 03/30/18 03/30/18 18:59 06:59 18:59 Intake Total 236 960 270 Output Total 350 750 Balance -114 210 270 Weight 97.5 kg 98.2 kg Intake: IV 30 Invasive Line 1 10 Invasive Line 2 20 Oral 236 960 240 Output: Urine 350 750 Other: Voiding Method Indwelling Catheter Indwelling Catheter Toilet Urinal # Voids 0 - Exam - Constitutional General appearance: obese - EENT Eyes: EOMI, PERRLA ENT: hard of hearing Ears: bilateral: normal - Neck Neck: normal ROM Carotids: bilateral: upstroke normal Thyroid: bilateral: normal size - Respiratory Respiratory: bilateral: rales, rhonchi - Cardiovascular Rhythm: regular Heart sounds: normal: S1, S2 - Gastrointestinal General gastrointestinal: no organomegaly, soft, no tenderness - Integumentary Integumentary: normal - Neurologic Neurologic: CNII-XII intact - Musculoskeletal Musculoskeletal: generalized weakness - Psychiatric Psychiatric: A&O x's 3, intact judgment & insight - Labs CBC & Chem 7: 03/30/18 05:18 03/30/18 05:18 Labs: Abnormal Lab Results - Last 24 Hours (Table) 03/29/18 03/29/18 03/29/18 Range/Units 11:45 11:58 17:07 RBC (4.30-5.90) m/uL Hgb (13.0-17.5) gm/dL Hct (39.0-53.0) % Plt Count (150-450) k/uL Neutrophils # (1.3-7.7) k/uL Lymphocytes # (1.0-4.8) k/uL BUN (9-20) mg/dL Creatinine (0.66-1.25) mg/dL Glucose (74-99) mg/dL POC Glucose (mg/dL) 68 L 72 L 336 H (75-99) mg/dL 03/30/18 03/30/18 03/30/18 Range/Units 05:18 05:18 05:56 RBC 3.57 L (4.30-5.90) m/uL Hgb 9.7 L (13.0-17.5) gm/dL Hct 30.3 L (39.0-53.0) % Plt Count 129 L (150-450) k/uL Neutrophils # 7.8 H (1.3-7.7) k/uL Lymphocytes # 0.7 L (1.0-4.8) k/uL BUN 39 H (9-20) mg/dL Creatinine 1.30 H (0.66-1.25) mg/dL Glucose 58 L (74-99) mg/dL POC Glucose (mg/dL) 68 L (75-99) mg/dL Microbiology - Last 24 Hours (Table) 03/28/18 18:30 Urine Culture - Final Urine,Catheterized 03/28/18 13:10 Blood Culture - Preliminary Blood No Growth after 24 hours Assessment and Plan Assessment: Impression: #1 Acute hypoxic respiratory failure secondary to an acute exacerbation of systolic congestive heart failure in a patient with echocardiogram revealing ejection fraction between 35-40%. #2 Acute hypoxic respiratory failure secondary to above, doubt pneumonia. #3 History of atrial fibrillation adequately regulated with Eliquis. #4 History of coronary artery disease with previous coronary artery bypass grafting. #5 Hypertension. #6 Hyperlipidemia. #7 Diabetes mellitus. #8 Peripheral vascular disease with previous stenting of the right SFA. #9 History of chronic tobacco dependence however quit 2001. Plan: The patient was seen and evaluated by Dr. Samano. Computed tomography scan of the chest was reviewed mostly a picture of congestive heart failure. We'll continue with IV diuretics. We'll continue with bronchodilators and antibiotics in the form of ceftriaxone and azithromycin. We will titrate down his FiO2 as tolerated. We will increase his activity as tolerated. We'll continue to follow. I, the cosigning physician, performed a history & physical examination of the patient. Lungs sounds with crackles in the bilateral bases. Maintaining good O2 saturations in the 90s on 6 L/m per nasal cannula. I discussed the assessment and plan of care with my nurse practitioner, Tessa Foster. I attest to the above note as dictated by her.
--- NOTE | 2018-03-30 11:45 | CDI ---
Last Revision, September 2017 Documentation Clarification Form Date: 03/30/11 1144 From: Latricia Purcell RN, CCDS Admit Date: 03/28/2018 2:38:00 PM Patient Name: Luan Powell Visit Number: [id number] ATTENTION: The Clinical Documentation Specialists (CDI) and [facility] Coding Staff appreciate your assistance in clarifying documentation. Please respond to the clarification below the line at the bottom and electronically sign. The CDI & [facility] Coding staff will review the response and follow-up if needed. Please note: Queries are made part of the Legal Health Record. If you have any questions, please contact the author of this message via ITS. Dr. Ann Hurley A diagnosis of anemia lacks specificity to accurately reflect your patients severity of condition and clarification is needed. History/Risk Factors: Atrial fib with chronic anticoagulation, CAD, CHF, DM2, HTN, [place], CABG Clinical indicators: 03/28 & 03/29 H&P and Progress Notes: "Anemia" Hemoglobin: 11.4/10/9.7 Hematocrit: 36.2/31.1/30.3 Treatment: Monitoring labs am daily Eliquis 2.5 mg PO BID & ASA 81 mg PO QD Folic Acid 1 mg PO QD In order to capture the severity of condition, please clarify the type of anemia and etiology if known: Chronic blood loss anemia Iron deficiency anemia Drug induced anemia Nutritional anemia Anemia of chronic disease Unable to determine Other, please specify Please continue to document in your progress notes and discharge summary in order to capture severity of illness and risk of mortality. Include clinical findings that support your diagnosis. Anemia of chronic disease MTDD
--- NOTE | 2018-03-30 11:45 | P.PN ---
Subjective Progress Note Date: 03/30/18 This is a 77-year-old gentleman who follows regularly with Dr. Winters in the [place] office, he has known history of paroxysmal atrial fibrillation, diabetes, hypertension, hyperlipidemia, peripheral stenting, coronary artery disease with prior bypass surgery. He states that he presented to [facility] with symptoms of progressively worsening shortness of breath with associated cough, chills, significant bilateral peripheral edema. Patient also states that he had a recent fall, but he states he dropped a dime on the floor, lost his balance and fell. There was no syncopal episode at that time. Cardiology consultation was requested because of congestive heart failure. CT of the brain performed at [facility] revealed low attenuation in the periventricular white matter likely refractory microvascular ischemic change. Old right basal ganglia infarct. Blood pressure at [facility] 152/60, heart rate in the 70s, 92% on room air. Sodium 137, potassium 4.1 chloride 107, CO2 19, BUN 29, creatinine 1.1. BNP level 1270., white blood cell count 14.7, hemoglobin 11.3, hematocrit 34.5, platelets 126. Rest x-ray performed at [facility] revealed bilateral infiltrates, patient was initiated on IV antibiotics, oxygen saturation at [facility] in the low 90s on 8 L of oxygen decision was made to transfer the patient to [facility] for further treatment. EKG performed at [facility] showed a normal sinus rhythm with nonspecific ST-T wave changes. Chest x-ray performed on arrival here revealed a bilateral bronchopneumonia with prominent right pleural effusion. Repeat chest x-ray this morning showed bilateral pneumonia and a component of volume overload congestive heart failure not excluded. EKG on arrival shows a normal sinus rhythm. White blood cell count on arrival 13.4, 10.6 this morning, hemoglobin 11.4, 10.0 this morning. Platelet count 133 and 114 this morning. Sodium 141, potassium 3.8, BUN 35, creatinine 1.1. Magnesium level I.4. Troponin 0.030. BNP level 9770. Influenza A and B-. Temperature on arrival 100.6. At the time of my examination this morning, patient is sitting up in his chair at bedside. He does have 2-3+ peripheral edema, Buck catheter is in place draining adequate amounts of urine. Still complains of feeling short of breath. Patient is currently on IV Lasix 40 mg every 8 hourly as well as IV antibiotics. 03/30/2018 Patient seen and examined this morning, overall breathing is improving. Continues to have cough. Blood pressure 144/60 with a heart rate in the 50s to 60s, 98% on 4 L. White blood cell count 9.1, hemoglobin 9.7, platelet count 129. Sodium 138, potassium 3.8, BUN 39, creatinine 1.3. He continues to be on IV Lasix which will be continued. We will repeat chest x-ray tomorrow. Objective - Vital Signs Vital signs: Vital Signs Temp 96.8 F L 03/30/18 08:00 Pulse 56 L 03/30/18 11:12 Resp 18 03/30/18 08:00 BP 144/65 03/30/18 08:00 Pulse Ox 98 03/30/18 08:00 Intake & Output 03/29/18 03/30/18 03/30/18 18:59 06:59 18:59 Intake Total 236 960 270 Output Total 350 750 Balance -114 210 270 Weight 97.5 kg 98.2 kg Intake: IV 30 Invasive Line 1 10 Invasive Line 2 20 Oral 236 960 240 Output: Urine 350 750 Other: Voiding Method Indwelling Catheter Indwelling Catheter Toilet Urinal # Voids 0 - Exam PHYSICAL EXAMINATION: GENERAL: 77-year-old gentleman experiencing mild shortness of breath that time of my examination HEENT: Head is atraumatic, normocephalic. Pupils equal, round. Sclera anicteric. Conjunctiva are clear. Mucous membranes of the mouth are moist. Neck is supple. There is elevated jugular venous pressure.] bruit is heard. HEART EXAMINATION: Heart S1 and S2 irregularly irregular systolic murmur heard CHEST EXAMINATION: Lungs reveal significantly diminished air entry bilaterally, coarse rales heard. ABDOMEN: Soft, nontender. Bowel sounds are heard. No organomegaly noted. EXTREMITIES: 1+ peripheral pulses to the lower extremity with 2+ bilateral peripheral edema. NEUROLOGIC patient is awake, alert and oriented -3. . - Labs CBC & Chem 7: 03/30/18 05:18 03/30/18 05:18 Labs: Abnormal Lab Results - Last 24 Hours (Table) 03/29/18 03/29/18 03/29/18 Range/Units 11:45 11:58 17:07 RBC (4.30-5.90) m/uL Hgb (13.0-17.5) gm/dL Hct (39.0-53.0) % Plt Count (150-450) k/uL Neutrophils # (1.3-7.7) k/uL Lymphocytes # (1.0-4.8) k/uL BUN (9-20) mg/dL Creatinine (0.66-1.25) mg/dL Glucose (74-99) mg/dL POC Glucose (mg/dL) 68 L 72 L 336 H (75-99) mg/dL 03/30/18 03/30/18 03/30/18 Range/Units 05:18 05:18 05:56 RBC 3.57 L (4.30-5.90) m/uL Hgb 9.7 L (13.0-17.5) gm/dL Hct 30.3 L (39.0-53.0) % Plt Count 129 L (150-450) k/uL Neutrophils # 7.8 H (1.3-7.7) k/uL Lymphocytes # 0.7 L (1.0-4.8) k/uL BUN 39 H (9-20) mg/dL Creatinine 1.30 H (0.66-1.25) mg/dL Glucose 58 L (74-99) mg/dL POC Glucose (mg/dL) 68 L (75-99) mg/dL Microbiology - Last 24 Hours (Table) 03/28/18 18:30 Urine Culture - Final Urine,Catheterized 03/28/18 13:10 Blood Culture - Preliminary Blood No Growth after 24 hours Assessment and Plan Plan: Assessment and plan #1 symptoms of progressively worsening shortness of breath with associated peripheral edema and fever and chills, combination of bilateral pneumonia and congestive heart failure systolic acute on chronic #2 diabetes #3 hypertension #4 hyperlipidemia #5 paroxysmal atrial fibrillation #6 coronary artery disease with prior bypass surgery #10 PAD with prior stenting Plan We will continue with IV antibiotics as well as IV Lasix. Continue to monitor intake and output along with daily weights and daily lytes BUN and creatinine. We will repeat a chest x-ray tomorrow morning. DNP note has been reviewed, I agree with a documented findings and plan of care. Patient was seen and examined.
[2018-03-30 11:48] LABS: Glucose,Whole Blood 119 mg/dL (75-99)
[2018-03-30] MEDS: FOLIC ACID 1 MG TAB PO SCH (12:33)
--- NOTE | 2018-03-30 13:21 | PN ---
PROGRESS NOTE DATE OF SERVICE: 03/30/2018 This 77-year-old gentleman who was admitted with CHF acute exacerbation also had possible bilateral pneumonia. CT scan of chest was reviewed. The patient's hemoglobin was 9.7. Creatinine has worsened to 1.3 today. The Lasix dose has been reduced to b.i.d. at this time. Multiple consultants are following the patient closely. PAST MEDICAL HISTORY: Reviewed. REVIEW OF SYSTEMS: CARDIOVASCULAR: As mentioned earlier. RESPIRATORY: As mentioned earlier. GI: As mentioned earlier. NERVOUS SYSTEM: Diffusely weak. CURRENT MEDICATIONS: Current medications are reviewed and include: 1. DuoNeb q.i.d. and p.r.n. 2. Cordarone 200 mg daily. 3. Eliquis 2.5 mg b.i.d. 4. Aspirin 81 mg daily. 5. Tenormin 25 mg b.i.d. 6. Lipitor 10 mg. 7. Zithromax 500 mg daily. 8. Rocephin 1 gram daily. 9. Vitamin D3, 2000 daily. 10.Folic acid 1 mg daily. 11.Lasix 40 mg b.i.d. 12.Levemir 25 units subcutaneously at bedtime. 13.Zestril 40 mg. 14.Glucophage 1000 mg b.i.d. 15.Protonix. 16.Aldactone. 17.Flomax. PHYSICAL EXAMINATION: Patient is alert, oriented x3. Pulse 58, blood pressure 144/65, respiration 18, temperature 96.8, pulse ox 98% on 4 L. HEENT: Conjunctivae normal. Oral mucosa moist. Neck is no jugular venous distention. No carotid bruit. No lymph node enlargement. CARDIOVASCULAR: S1, S2 muffled. RESPIRATORY: Breath sounds diminished in the bases. A few scattered rhonchi and crackles. crackles are prominent. ABDOMEN: Soft nontender. LEGS: Bilateral leg edema NERVOUS SYSTEM: Higher functions as mentioned. Moves all 4 limbs. Mild diffuse weakness. LYMPHATICS: No lymphadenopathy of the neck, axillae or groin. SKIN: No ulcer, rash or bleeding. LABS: WBC 9.1, hemoglobin 9.7. Creatinine is 1.3. ASSESSMENT: 1. Congestive heart failure acute exacerbation with acute on chronic systolic dysfunction, ejection fraction 35% to 40%. 2. Possible bilateral pneumonia, possibly gram-negative. 3. Increased WBC. 4. Gait dysfunction. 5. Anemia of chronic disease. 6. History of atrial fibrillation. 7. History of coronary artery disease, coronary artery bypass grafting. 8. History of diabetes mellitus type 2. 9. Hypertension. 10.Hyperlipidemia. 11.History of myocardial infarction. 12.History of peripheral vascular disease. 13.History of cataracts. 14.Remote history of nicotine dependence. RECOMMENDATIONS AND DISCUSSION: Recommend to continue current medications, continued with monitoring and symptomatic treatment. Otherwise at this time, I would cut down the diuretics as mentioned earlier. Monitor fluid and electrolyte balance closely and fluid restriction 1200 mL per 24 hours. Discussed with the patient, family and staff. Further recommendations to follow. LEWISL / TABBYN: [id number] / SALVADOR
[2018-03-30 16:40] LABS: Glucose,Whole Blood 167 mg/dL (75-99)
[2018-03-30] MEDS: ATORVASTATIN 10 MG TAB PO SCH (17:07)
[2018-03-30 21:09] LABS: Glucose,Whole Blood 218 mg/dL (75-99)
[2018-03-30] MEDS ORDERED: INSULIN DETEMIR 100 UNIT/ML 10 ML VIAL SQ SCH (22:00)
[2018-03-31 02:15] LABS: Glucose,Whole Blood 150 mg/dL (75-99)
[2018-03-31] MEDS: PANTOPRAZOLE 40 MG TABLET PO SCH (06:44)
[2018-03-31] MEDS: INSULIN ASPART 100 UNIT/ML 1 ML 10 ML VIAL SQ SCH ×4 (06:53→20:41)
[2018-03-31 06:59] LABS: Glucose,Whole Blood 86 mg/dL (75-99)
--- NOTE | 2018-03-31 07:24 | XR ---
EXAMINATION TYPE: XR chest 2V DATE OF EXAM: 03/31/2018 COMPARISON: 03/29/2018 HISTORY: Congestive heart failure and possible superimposed pneumonia. TECHNIQUE: Frontal and lateral views of the chest are obtained. FINDINGS: There is worsening of aeration in the bilateral upper lungs with no focal consolidation an d progress pulmonary vascular congestion seen. Improved aeration of the right midlung is seen with pe rsistent left lung opacity and retrocardiac opacity. Improved aeration of the right lung base. Cardio mediastinal silhouette is again enlarged with post CABG changes the chest. Osseous structures are int act. No sizable pleural effusion or pneumothorax. IMPRESSION: Worsening pulmonary vascular congestion and improved multifocal consolidations likely re presenting worsening congestive heart failure and improving pneumonia considering the recent CT dated 03/29/2018.
[2018-03-31 07:53] LABS: Basophils % (A) 1 %; Eosinophils # (A) 0.2 k/uL (0-0.7); Eosinophils % (A) 2 %; HCT 31.6 % (39.0-53.0); Lymphocytes # (A) 0.7 k/uL (1.0-4.8); Lymphocytes % (A) 11 %; MCH 26.6 pg (25.0-35.0); MCHC 31.7 g/dL (31.0-37.0); MCV 83.8 fL (80.0-100.0); Mean Platelet Volume 8.9; Monocytes # (A) 0.3 k/uL (0-1.0); Monocytes % (A) 4 %; Neutrophils % (A) 81 %; Platelet Count 150 k/uL (150-450); RBC 3.77 m/uL (4.30-5.90); RDW 15.2 % (11.5-15.5); WBC 6.1 k/uL (3.8-10.6)
[2018-03-31 08:09] LABS: Calcium 9.1 mg/dL (8.4-10.2)
[2018-03-31] MEDS: IPRATROPIUM-ALBUTEROL 3 ML NEB INHALATION SCH ×4 (08:28→20:50)
[2018-03-31] MEDS ORDERED: FUROSEMIDE 40 MG TAB PO SCH (09:00)
[2018-03-31] MEDS ORDERED: FUROSEMIDE 10 MG/ML 4 ML VIAL IV SCH (09:00)
[2018-03-31] MEDS: metFORMIN 500 MG TAB PO SCH ×2 (09:17→20:41)
[2018-03-31] MEDS: TAMSULOSIN 0.4 MG CAP.ER.24H PO SCH ×2 (09:17→20:41)
[2018-03-31] MEDS: SPIRONOLACTONE 25 MG TAB PO SCH (09:17)
[2018-03-31] MEDS: FOLIC ACID 1 MG TAB PO SCH (09:17)
[2018-03-31] MEDS: CHOLECALCIFEROL 1,000 UNIT TAB PO SCH (09:18)
[2018-03-31] MEDS: ASPIRIN 81 MG PO SCH (09:18)
[2018-03-31] MEDS: AZITHROMYCIN 500 MG TAB PO SCH (09:18)
[2018-03-31] MEDS: FUROSEMIDE 10 MG/ML 4 ML VIAL IV SCH ×2 (09:18→20:40)
[2018-03-31] MEDS: APIXABAN 2.5 MG TABLET PO SCH ×2 (09:18→20:41)
[2018-03-31] MEDS: AMIODARONE 200 MG TAB PO SCH (09:18)
[2018-03-31] MEDS: LISINOPRIL 20 MG TAB PO SCH (09:19)
[2018-03-31] MEDS: INSULIN DETEMIR 100 UNIT/ML 10 ML VIAL SQ SCH (09:19)
[2018-03-31] MEDS: cefTRIAXone IN SWFI 1,000 MG/10 ML SYRINGE IVP SCH (09:22)
[2018-03-31] MEDS: CARVEDILOL 6.25 MG TAB PO SCH ×2 (09:22→17:25)
--- NOTE | 2018-03-31 10:22 | P.PN ---
Subjective Progress Note Date: 03/31/18 Principal diagnosis: Acute hypoxic respiratory failure secondary to acute systolic congestive heart failure. This is a pleasant 77-year-old gentleman who follows with Dr. Adhikari in [place]. He has a history of coronary artery disease with previous coronary artery bypass grafting in 2001, peripheral vascular disease with previous stenting to the SFA, atrial fibrillation anticoagulated with Eliquis, congestive heart failure, hypertension, hyperlipidemia, diabetes mellitus. He has a 10 year pack per day smoking history however states quit in 2001 following his bypass. 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 He states he did not lose consciousness. He also noted some increasing shortness of breath. While at [place] his chest x-ray revealed bilateral infiltrates/effusions. Bilateral lower extremity edema. ProBNP level was 1270. He did have a T-max of 100.0. He did become quite hypoxic requiring 8 L of high flow nasal cannula to maintain O2 saturations in the 90s. Based on this he was referred here for further evaluation and treatment. This morning's chest x-ray continues to show bilateral infiltrates/effusions. Slightly improved today as compared to yesterday. White count 10.6. Hemoglobin 10.0. Creatinine 1.11. He is seen today in consultation. He is currently sitting up in a chair at the bedside. He is awake and alert in no acute distress. He states he is breathing easier today as compared to yesterday. Currently afebrile. Down to 6 L high flow nasal cannula and maintaining O2 saturations in the high 90s. He has been hemodynamically stable. He has been initiated on bronchodilators, antibiotics in the form of ceftriaxone and azithromycin, IV diuretics. Echocardiogram pending. The patient is seen again today 03/30/2018 in follow-up on the selective care unit. He is awake and alert in no acute distress. He is breathing quite a bit better today as compared to yesterday. Computed tomography scan of the chest reveals bilateral pleural effusions suggestive of congestive heart failure. Echocardiogram reveals impaired left ventricular systolic function with ejection fraction 35-40%. He remains on diuretics. Blood cultures reveals no growth. Urine culture reveals no growth. He is afebrile. Maintaining good O2 saturations in the upper 90s on 4 L/m per nasal cannula. Reevaluated today on 04/10/2018, patient continues to do well, breathing a lot easier, dramatic improvement noted on the chest x-ray especially on the right side, all the fluid has completely resolved. Clinically the patient is much better with diuretics, and of course does not usually seen in pneumonia, it is mostly seen in people with congestive heart failure. Patient continues to diurese, I kept him on Lasix at 40 mg IV push every 12 hours, renal functioning is better today compared to the last couple of days. BUN is 39 and creatinine is 1.11. Chest x-ray was reviewed, possibility ofdisease in the left lung is considered but again I feel it is less likely considering the dramatic improvement with diuretics. Not to mention the patient is clinically significantly improved. Objective - Vital Signs Vital signs: Vital Signs Temp 96.9 F L 03/31/18 03:14 Pulse 66 03/31/18 08:46 Resp 20 03/31/18 03:15 BP 159/71 03/31/18 03:14 Pulse Ox 96 03/31/18 03:14 Intake & Output 03/30/18 03/31/18 03/31/18 18:59 06:59 18:59 Intake Total 1563 240 Output Total 775 1770 Balance 788 -1530 Weight 96.4 kg Intake: IV 40 0 Invasive Line 1 20 Invasive Line 2 20 0 Oral 1523 240 Output: Urine 775 1770 Other: Voiding Method Toilet Toilet Urinal Urinal # Voids 1 2 # Bowel Movements 0 - Exam - Exam - Constitutional General appearance: obese - EENT Eyes: EOMI, PERRLA ENT: hard of hearing Ears: bilateral: normal - Neck Neck: normal ROM Carotids: bilateral: upstroke normal Thyroid: bilateral: normal size - Respiratory Respiratory: bilateral: rales, rhonchi - Cardiovascular Rhythm: regular Heart sounds: normal: S1, S2 - Gastrointestinal General gastrointestinal: no organomegaly, soft, no tenderness - Integumentary Integumentary: normal - Neurologic Neurologic: CNII-XII intact - Musculoskeletal Musculoskeletal: generalized weakness - Psychiatric Psychiatric: A&O x's 3, intact judgment & insight - Labs CBC & Chem 7: 03/31/18 07:20 03/31/18 07:20 Labs: Abnormal Lab Results - Last 24 Hours (Table) 03/30/18 03/30/18 03/30/18 Range/Units 11:45 16:38 21:08 RBC (4.30-5.90) m/uL Hgb (13.0-17.5) gm/dL Hct (39.0-53.0) % Lymphocytes # (1.0-4.8) k/uL BUN (9-20) mg/dL Glucose (74-99) mg/dL POC Glucose (mg/dL) 119 H 167 H 218 H (75-99) mg/dL 03/31/18 03/31/18 03/31/18 Range/Units 02:03 07:20 07:20 RBC 3.77 L (4.30-5.90) m/uL Hgb 10.0 L (13.0-17.5) gm/dL Hct 31.6 L (39.0-53.0) % Lymphocytes # 0.7 L (1.0-4.8) k/uL BUN 39 H (9-20) mg/dL Glucose 70 L (74-99) mg/dL POC Glucose (mg/dL) 150 H (75-99) mg/dL Microbiology - Last 24 Hours (Table) 03/28/18 13:10 Blood Culture - Preliminary Blood No Growth after 48 hours Assessment and Plan Assessment: #1 Acute hypoxic respiratory failure secondary to an acute exacerbation of systolic congestive heart failure in a patient with echocardiogram revealing ejection fraction between 35-40%. #2 Acute hypoxic respiratory failure secondary to above, doubt pneumonia. #3 History of atrial fibrillation adequately regulated with Eliquis. #4 History of coronary artery disease with previous coronary artery bypass grafting. #5 Hypertension. #6 Hyperlipidemia. #7 Diabetes mellitus. #8 Peripheral vascular disease with previous stenting of the right SFA. #9 History of chronic tobacco dependence however quit 2001. Plan: Continue present treatment plan, keep diuretics at 40 mg IV push every 12 hours/Lasix. Continue empiric antibiotics, but I would likely discontinue antibiotics in the next 24-48 hours. Continue bronchodilators. Titrate FiO2 down to keep saturation above 90%. Possible discharge planning on Monday. Time with Patient: Less than 30
--- NOTE | 2018-03-31 10:36 | P.PN ---
Subjective Progress Note Date: 03/31/18 This is a 77-year-old gentleman who follows regularly with Dr. Winters in the [place] office, he has known history of paroxysmal atrial fibrillation, diabetes, hypertension, hyperlipidemia, peripheral stenting, coronary artery disease with prior bypass surgery. He states that he presented to [facility] with symptoms of progressively worsening shortness of breath with associated cough, chills, significant bilateral peripheral edema. Patient also states that he had a recent fall, but he states he dropped a dime on the floor, lost his balance and fell. There was no syncopal episode at that time. Cardiology consultation was requested because of congestive heart failure. CT of the brain performed at [facility] revealed low attenuation in the periventricular white matter likely refractory microvascular ischemic change. Old right basal ganglia infarct. Blood pressure at [facility] 152/60, heart rate in the 70s, 92% on room air. Sodium 137, potassium 4.1 chloride 107, CO2 19, BUN 29, creatinine 1.1. BNP level 1270., white blood cell count 14.7, hemoglobin 11.3, hematocrit 34.5, platelets 126. Rest x-ray performed at [facility] revealed bilateral infiltrates, patient was initiated on IV antibiotics, oxygen saturation at [facility] in the low 90s on 8 L of oxygen decision was made to transfer the patient to [facility] for further treatment. EKG performed at [facility] showed a normal sinus rhythm with nonspecific ST-T wave changes. Chest x-ray performed on arrival here revealed a bilateral bronchopneumonia with prominent right pleural effusion. Repeat chest x-ray this morning showed bilateral pneumonia and a component of volume overload congestive heart failure not excluded. EKG on arrival shows a normal sinus rhythm. White blood cell count on arrival 13.4, 10.6 this morning, hemoglobin 11.4, 10.0 this morning. Platelet count 133 and 114 this morning. Sodium 141, potassium 3.8, BUN 35, creatinine 1.1. Magnesium level I.4. Troponin 0.030. BNP level 9770. Influenza A and B-. Temperature on arrival 100.6. At the time of my examination this morning, patient is sitting up in his chair at bedside. He does have 2-3+ peripheral edema, Buck catheter is in place draining adequate amounts of urine. Still complains of feeling short of breath. Patient is currently on IV Lasix 40 mg every 8 hourly as well as IV antibiotics. 03/30/2018 Patient seen and examined this morning, overall breathing is improving. Continues to have cough. Blood pressure 144/60 with a heart rate in the 50s to 60s, 98% on 4 L. White blood cell count 9.1, hemoglobin 9.7, platelet count 129. Sodium 138, potassium 3.8, BUN 39, creatinine 1.3. He continues to be on IV Lasix which will be continued. We will repeat chest x-ray tomorrow. 03/31/2018 Patient was seen and examined this morning, cough is improving, still short of breath. Chest x-ray performed this morning showed worsening pulmonary vascular congestion and improved consolidation, likely representing worsening congestive heart failure and improving pneumonia. Patient continues to be on IV Lasix, his weight is down 2 kg today. Blood pressure 158/70, we will discontinue the atenolol and start the patient on Coreg. Continue IV Lasix. BUN 39 and creatinine 1.1. Objective - Vital Signs Vital signs: Vital Signs Temp 96.9 F L 03/31/18 03:14 Pulse 66 03/31/18 08:46 Resp 20 03/31/18 03:15 BP 159/71 03/31/18 03:14 Pulse Ox 96 03/31/18 03:14 Intake & Output 03/30/18 03/31/18 03/31/18 18:59 06:59 18:59 Intake Total 1563 240 Output Total 775 1770 Balance 788 -1530 Weight 96.4 kg Intake: IV 40 0 Invasive Line 1 20 Invasive Line 2 20 0 Oral 1523 240 Output: Urine 775 1770 Other: Voiding Method Toilet Toilet Urinal Urinal # Voids 1 2 # Bowel Movements 0 - Exam PHYSICAL EXAMINATION: GENERAL: 77-year-old gentleman experiencing mild shortness of breath that time of my examination HEENT: Head is atraumatic, normocephalic. Pupils equal, round. Sclera anicteric. Conjunctiva are clear. Mucous membranes of the mouth are moist. Neck is supple. There is elevated jugular venous pressure.] bruit is heard. HEART EXAMINATION: Heart S1 and S2 irregularly irregular systolic murmur heard CHEST EXAMINATION: Lungs reveal significantly diminished air entry bilaterally, coarse rales heard. ABDOMEN: Soft, nontender. Bowel sounds are heard. No organomegaly noted. EXTREMITIES: 1+ peripheral pulses to the lower extremity with 2+ bilateral peripheral edema. NEUROLOGIC patient is awake, alert and oriented -3. . - Labs CBC & Chem 7: 03/31/18 07:20 03/31/18 07:20 Labs: Abnormal Lab Results - Last 24 Hours (Table) 03/30/18 03/30/18 03/30/18 Range/Units 11:45 16:38 21:08 RBC (4.30-5.90) m/uL Hgb (13.0-17.5) gm/dL Hct (39.0-53.0) % Lymphocytes # (1.0-4.8) k/uL BUN (9-20) mg/dL Glucose (74-99) mg/dL POC Glucose (mg/dL) 119 H 167 H 218 H (75-99) mg/dL 03/31/18 03/31/18 03/31/18 Range/Units 02:03 07:20 07:20 RBC 3.77 L (4.30-5.90) m/uL Hgb 10.0 L (13.0-17.5) gm/dL Hct 31.6 L (39.0-53.0) % Lymphocytes # 0.7 L (1.0-4.8) k/uL BUN 39 H (9-20) mg/dL Glucose 70 L (74-99) mg/dL POC Glucose (mg/dL) 150 H (75-99) mg/dL Microbiology - Last 24 Hours (Table) 03/28/18 13:10 Blood Culture - Preliminary Blood No Growth after 48 hours Assessment and Plan Plan: Assessment and plan #1 symptoms of progressively worsening shortness of breath with associated peripheral edema and fever and chills, combination of bilateral pneumonia and congestive heart failure systolic acute on chronic #2 diabetes #3 hypertension #4 hyperlipidemia #5 paroxysmal atrial fibrillation #6 coronary artery disease with prior bypass surgery #10 PAD with prior stenting Plan We will continue with IV antibiotics as well as IV Lasix. Continue to monitor intake and output along with daily weights and daily lytes BUN and creatinine. Discontinue atenolol and start the patient on Coreg for more optimal blood pressure control. DNP note has been reviewed, I agree with a documented findings and plan of care. Patient was seen and examined.
[2018-03-31 12:07] LABS: Glucose,Whole Blood 89 mg/dL (75-99)
[2018-03-31 16:44] LABS: Glucose,Whole Blood 188 mg/dL (75-99)
--- NOTE | 2018-03-31 16:55 | PN ---
PROGRESS NOTE DATE OF SERVICE: 03/31/2018 This 77-year-old gentleman admitted CHF acute exacerbation also showed features of pneumonia. The patient is still on diuretics. The patient also had urinary retention. No chest pain. No palpitations. No fever. EXAM: Alert and oriented x3. Pulse is 56. Blood pressure 145/70, respiration 18, temperature 97.2, pulse ox 94% on room air. HEENT: Conjunctivae normal. NECK: No jugular venous distention. CARDIOVASCULAR: S1, S2. RESPIRATORY: Breath sounds diminished in the bases. A few scattered rhonchi and crackles. ABDOMEN: Soft, nontender. LEGS: Bilateral leg edema NERVOUS SYSTEM: No focal deficits. LABS: WBC 6.2, hemoglobin is 10, and glucose 70. ASSESSMENT: 1. Congestive heart failure acute exacerbation with acute on chronic systolic dysfunction ejection fraction 35-40%. 2. Possible bilateral pneumonia, possibly gram-negative. 3. Increased WBC. 4. Urinary retention. 5. Gait dysfunction. 6. Anemia of chronic disease. 7. History of atrial fibrillation. 8. History of coronary artery disease, CABG. 9. History of diabetes mellitus type 2. 10.Hypertension. 11.Hyperlipidemia. 12.History of myocardial infarction. 13.History of peripheral vascular disease. 14.History of cataracts. 15.Remote history of nicotine dependence. RECOMMENDATIONS AND DISCUSSION: I recommend to continue current management, continue monitoring and symptomatic treatment. Otherwise at this time I would continue the diuretics. I would also recommend monitor intake and output closely. The patient has been refusing straight cath. Recommend straight cath for urine more than 300. Otherwise, a repeat UA with micro is also recommended. The prognosis guarded because of multiple complex issues. Further recommendations to follow. MMODL / IJN: [id number] /
[2018-03-31] MEDS: ATORVASTATIN 10 MG TAB PO SCH (17:25)
[2018-03-31] MEDS ORDERED: Magnesium Replacement Protocol 1 EACH MISC MISCELLANE PRN (19:08)
[2018-03-31 19:28] LABS: Appearance,Urine Clear (Clear); Bacteria,Urine Rare /hpf; Bilirubin,Urine Negative (Negative); Blood,Urine Trace (Negative); Color,Urine Yellow; Glucose,Urine (UA) Negative (Negative); Ketones,Urine Negative (Negative); Leukocyte Esterase,Urine Small (Negative); Mucus,Urine Rare /hpf; Nitrite,Urine Negative (Negative); Protein,Urine Trace (Negative); RBC,Urine 3 /hpf (0-5); Specific Gravity,Urine 1.015 (1.001-1.035); WBC,Urine 9 /hpf (0-5)
[2018-03-31 20:43] LABS: Glucose,Whole Blood 156 mg/dL (75-99)
[2018-04-01 06:32] LABS: Glucose,Whole Blood 158 mg/dL (75-99)
[2018-04-01] MEDS: INSULIN ASPART 100 UNIT/ML 1 ML 10 ML VIAL SQ SCH ×4 (06:40→21:06)
[2018-04-01 06:41] LABS: Basophils % (A) 1 %; Eosinophils # (A) 0.2 k/uL (0-0.7); Eosinophils % (A) 3 %; HCT 34.5 % (39.0-53.0); HGB 11.1 gm/dL (13.0-17.5); Hypochromasia Slight; Lymphocytes # (A) 0.8 k/uL (1.0-4.8); Lymphocytes % (A) 14 %; MCHC 32.2 g/dL (31.0-37.0); MCV 83.9 fL (80.0-100.0); Mean Platelet Volume 8.3; Monocytes # (A) 0.3 k/uL (0-1.0); Monocytes % (A) 4 %; Neutrophils # (A) 4.5 k/uL (1.3-7.7); Neutrophils % (A) 78 %; Platelet Count 164 k/uL (150-450); RBC 4.12 m/uL (4.30-5.90); RDW 15.2 % (11.5-15.5); WBC 5.9 k/uL (3.8-10.6)
[2018-04-01] MEDS: PANTOPRAZOLE 40 MG TABLET PO SCH (06:41)
[2018-04-01] MEDS: CARVEDILOL 6.25 MG TAB PO SCH ×2 (06:41→16:29)
[2018-04-01 06:51] LABS: Calcium 9.2 mg/dL (8.4-10.2)
[2018-04-01] MEDS: IPRATROPIUM-ALBUTEROL 3 ML NEB INHALATION SCH ×4 (08:19→19:12)
[2018-04-01] MEDS: MAGNESIUM SULFATE-D5W PMX 1 GM in DEXTROSE/WATER 1 100ML.BAG IVPB SCH ×2 (08:52→10:10)
[2018-04-01] MEDS: SPIRONOLACTONE 25 MG TAB PO SCH (08:52)
[2018-04-01] MEDS: FUROSEMIDE 10 MG/ML 4 ML VIAL IV SCH (08:52)
[2018-04-01] MEDS: ASPIRIN 81 MG PO SCH (08:53)
[2018-04-01] MEDS: CHOLECALCIFEROL 1,000 UNIT TAB PO SCH (08:53)
[2018-04-01] MEDS: AMIODARONE 200 MG TAB PO SCH (08:53)
[2018-04-01] MEDS: LISINOPRIL 20 MG TAB PO SCH (08:53)
[2018-04-01] MEDS: APIXABAN 2.5 MG TABLET PO SCH ×2 (08:53→21:12)
[2018-04-01] MEDS: AZITHROMYCIN 500 MG TAB PO SCH (08:53)
[2018-04-01] MEDS: metFORMIN 500 MG TAB PO SCH ×2 (08:53→21:12)
[2018-04-01] MEDS: TAMSULOSIN 0.4 MG CAP.ER.24H PO SCH ×2 (08:53→21:12)
[2018-04-01] MEDS: INSULIN DETEMIR 100 UNIT/ML 10 ML VIAL SQ SCH (08:53)
[2018-04-01] MEDS: cefTRIAXone IN SWFI 1,000 MG/10 ML SYRINGE IVP SCH (08:55)
--- NOTE | 2018-04-01 10:46 | P.PN ---
Subjective Progress Note Date: 04/01/18 Principal diagnosis: Acute hypoxic respiratory failure secondary to acute systolic congestive heart failure. This is a pleasant 77-year-old gentleman who follows with Dr. Adhikari in [place]. He has a history of coronary artery disease with previous coronary artery bypass grafting in 2001, peripheral vascular disease with previous stenting to the SFA, atrial fibrillation anticoagulated with Eliquis, congestive heart failure, hypertension, hyperlipidemia, diabetes mellitus. He has a 10 year pack per day smoking history however states quit in 2001 following his bypass. 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 He states he did not lose consciousness. He also noted some increasing shortness of breath. While at [place] his chest x-ray revealed bilateral infiltrates/effusions. Bilateral lower extremity edema. ProBNP level was 1270. He did have a T-max of 100.0. He did become quite hypoxic requiring 8 L of high flow nasal cannula to maintain O2 saturations in the 90s. Based on this he was referred here for further evaluation and treatment. This morning's chest x-ray continues to show bilateral infiltrates/effusions. Slightly improved today as compared to yesterday. White count 10.6. Hemoglobin 10.0. Creatinine 1.11. He is seen today in consultation. He is currently sitting up in a chair at the bedside. He is awake and alert in no acute distress. He states he is breathing easier today as compared to yesterday. Currently afebrile. Down to 6 L high flow nasal cannula and maintaining O2 saturations in the high 90s. He has been hemodynamically stable. He has been initiated on bronchodilators, antibiotics in the form of ceftriaxone and azithromycin, IV diuretics. Echocardiogram pending. The patient is seen again today 03/30/2018 in follow-up on the selective care unit. He is awake and alert in no acute distress. He is breathing quite a bit better today as compared to yesterday. Computed tomography scan of the chest reveals bilateral pleural effusions suggestive of congestive heart failure. Echocardiogram reveals impaired left ventricular systolic function with ejection fraction 35-40%. He remains on diuretics. Blood cultures reveals no growth. Urine culture reveals no growth. He is afebrile. Maintaining good O2 saturations in the upper 90s on 4 L/m per nasal cannula. Reevaluated today on 03/31/2018, patient continues to do well, breathing a lot easier, dramatic improvement noted on the chest x-ray especially on the right side, all the fluid has completely resolved. Clinically the patient is much better with diuretics, and of course does not usually seen in pneumonia, it is mostly seen in people with congestive heart failure. Patient continues to diurese, I kept him on Lasix at 40 mg IV push every 12 hours, renal functioning is better today compared to the last couple of days. BUN is 39 and creatinine is 1.11. Chest x-ray was reviewed, possibility ofdisease in the left lung is considered but again I feel it is less likely considering the dramatic improvement with diuretics. Not to mention the patient is clinically significantly improved. Reevaluated today on 04/01/2018, patient continues to do well, breathing easier, less cough and less shortness of breath. Remains on relatively high dose of Lasix 40 mg IV push every 12 hours, Buck catheter was placed back again mostly because of urine retention. Renal functioning seems to be improving in spite of aggressive diuresis. Hence I plan to keep him on Lasix, and a follow-up chest x-ray was ordered to be done in a.m. Objective - Vital Signs Vital signs: Vital Signs Temp 98.4 F 04/01/18 08:00 Pulse 62 04/01/18 08:31 Resp 16 04/01/18 08:31 BP 174/70 04/01/18 08:00 Pulse Ox 94 L 04/01/18 08:00 Intake & Output 03/31/18 04/01/18 04/01/18 18:59 06:59 18:59 Intake Total 296 236 Output Total 2162 2900 1300 Balance -1866 -2900 -1064 Weight 93.8 kg Intake: IV 60 Invasive Line 1 60 Invasive Line 2 0 Oral 236 236 Output: Urine 1400 2300 1300 Straight 450 1950 Post Void Residual 762 600 Other: Voiding Method Toilet Indwelling Catheter Indwelling Catheter Urinal # Voids 2 2 # Bowel Movements 1 - Exam - Exam - Constitutional General appearance: obese - EENT Eyes: EOMI, PERRLA ENT: hard of hearing Ears: bilateral: normal - Neck Neck: normal ROM Carotids: bilateral: upstroke normal Thyroid: bilateral: normal size - Respiratory Respiratory: bilateral: rales, rhonchi - Cardiovascular Rhythm: regular Heart sounds: normal: S1, S2 - Gastrointestinal General gastrointestinal: no organomegaly, soft, no tenderness - Integumentary Integumentary: normal - Neurologic Neurologic: CNII-XII intact - Musculoskeletal Musculoskeletal: generalized weakness - Psychiatric Psychiatric: A&O x's 3, intact judgment & insight - Labs CBC & Chem 7: 18 06:28 04/01/18 06:28 Labs: Abnormal Lab Results - Last 24 Hours (Table) 03/31/18 03/31/18 03/31/18 Range/Units 07:20 16:41 18:45 RBC (4.30-5.90) m/uL Hgb (13.0-17.5) gm/dL Hct (39.0-53.0) % Lymphocytes # (1.0-4.8) k/uL Chloride (98-107) mmol/L BUN (9-20) mg/dL Glucose (74-99) mg/dL POC Glucose (mg/dL) 188 H (75-99) mg/dL Magnesium 1.5 L (1.6-2.3) mg/dL Urine Protein Trace H (Negative) Urine Blood Trace H (Negative) Ur Leukocyte Esterase Small H (Negative) Urine WBC 9 H (0-5) /hpf Urine Bacteria Rare H (None) /hpf Urine Mucus Rare H (None) /hpf 03/31/18 04/01/18 04/01/18 Range/Units 20:32 06:28 06:28 RBC 4.12 L (4.30-5.90) m/uL Hgb 11.1 L (13.0-17.5) gm/dL Hct 34.5 L (39.0-53.0) % Lymphocytes # 0.8 L (1.0-4.8) k/uL Chloride 97 L (98-107) mmol/L BUN 33 H (9-20) mg/dL Glucose 154 H (74-99) mg/dL POC Glucose (mg/dL) 156 H (75-99) mg/dL Magnesium (1.6-2.3) mg/dL Urine Protein (Negative) Urine Blood (Negative) Ur Leukocyte Esterase (Negative) Urine WBC (0-5) /hpf Urine Bacteria (None) /hpf Urine Mucus (None) /hpf 04/01/18 Range/Units 06:28 RBC (4.30-5.90) m/uL Hgb (13.0-17.5) gm/dL Hct (39.0-53.0) % Lymphocytes # (1.0-4.8) k/uL Chloride (98-107) mmol/L BUN (9-20) mg/dL Glucose (74-99) mg/dL POC Glucose (mg/dL) 158 H (75-99) mg/dL Magnesium (1.6-2.3) mg/dL Urine Protein (Negative) Urine Blood (Negative) Ur Leukocyte Esterase (Negative) Urine WBC (0-5) /hpf Urine Bacteria (None) /hpf Urine Mucus (None) /hpf Microbiology - Last 24 Hours (Table) 03/28/18 13:10 Blood Culture - Preliminary Blood No Growth after 72 hours Assessment and Plan Assessment: #1 Acute hypoxic respiratory failure secondary to an acute exacerbation of systolic congestive heart failure in a patient with echocardiogram revealing ejection fraction between 35-40%. #2 Acute hypoxic respiratory failure secondary to above, doubt pneumonia. #3 History of atrial fibrillation adequately regulated with Eliquis. #4 History of coronary artery disease with previous coronary artery bypass grafting. #5 Hypertension. #6 Hyperlipidemia. #7 Diabetes mellitus. #8 Peripheral vascular disease with previous stenting of the right SFA. #9 History of chronic tobacco dependence however quit 2001. Plan: Continue present treatment plan, keep diuretics at 40 mg IV push every 12 hours/Lasix. Continue empiric antibiotics, for now, discontinue antibiotics of the chest x-ray continues to show improvement tomorrow. Ordered a chest x-ray for a.m. possible discharge planning in the next 24 hours. Time with Patient: Less than 30
--- NOTE | 2018-04-01 11:14 | P.PN ---
Subjective This is a 77-year-old gentleman who follows regularly with Dr. Winters in the [place] office, he has known history of paroxysmal atrial fibrillation, diabetes, hypertension, hyperlipidemia, peripheral stenting, coronary artery disease with prior bypass surgery. He states that he presented to [facility] with symptoms of progressively worsening shortness of breath with associated cough, chills, significant bilateral peripheral edema. Patient also states that he had a recent fall, but he states he dropped a dime on the floor, lost his balance and fell. There was no syncopal episode at that time. Cardiology consultation was requested because of congestive heart failure. CT of the brain performed at [facility] revealed low attenuation in the periventricular white matter likely refractory microvascular ischemic change. Old right basal ganglia infarct. Blood pressure at [facility] 152/60, heart rate in the 70s, 92% on room air. Sodium 137, potassium 4.1 chloride 107, CO2 19, BUN 29, creatinine 1.1. BNP level 1270., white blood cell count 14.7, hemoglobin 11.3, hematocrit 34.5, platelets 126. Rest x-ray performed at [facility] revealed bilateral infiltrates, patient was initiated on IV antibiotics, oxygen saturation at [facility] in the low 90s on 8 L of oxygen decision was made to transfer the patient to [facility] for further treatment. EKG performed at [facility] showed a normal sinus rhythm with nonspecific ST-T wave changes. Chest x-ray performed on arrival here revealed a bilateral bronchopneumonia with prominent right pleural effusion. Repeat chest x-ray this morning showed bilateral pneumonia and a component of volume overload congestive heart failure not excluded. EKG on arrival shows a normal sinus rhythm. White blood cell count on arrival 13.4, 10.6 this morning, hemoglobin 11.4, 10.0 this morning. Platelet count 133 and 114 this morning. Sodium 141, potassium 3.8, BUN 35, creatinine 1.1. Magnesium level I.4. Troponin 0.030. BNP level 9770. Influenza A and B-. Temperature on arrival 100.6. At the time of my examination this morning, patient is sitting up in his chair at bedside. He does have 2-3+ peripheral edema, Buck catheter is in place draining adequate amounts of urine. Still complains of feeling short of breath. Patient is currently on IV Lasix 40 mg every 8 hourly as well as IV antibiotics. 03/30/2018 Patient seen and examined this morning, overall breathing is improving. Continues to have cough. Blood pressure 144/60 with a heart rate in the 50s to 60s, 98% on 4 L. White blood cell count 9.1, hemoglobin 9.7, platelet count 129. Sodium 138, potassium 3.8, BUN 39, creatinine 1.3. He continues to be on IV Lasix which will be continued. We will repeat chest x-ray tomorrow. 03/31/2018 Patient was seen and examined this morning, cough is improving, still short of breath. Chest x-ray performed this morning showed worsening pulmonary vascular congestion and improved consolidation, likely representing worsening congestive heart failure and improving pneumonia. Patient continues to be on IV Lasix, his weight is down 2 kg today. Blood pressure 158/70, we will discontinue the atenolol and start the patient on Coreg. Continue IV Lasix. BUN 39 and creatinine 1.1. 04/01/2018 Mr. Powell is seen and examined resting comfortably in bed. He states his breathing has improved but he still feels weak and dyspneic with exertion. Blood pressure 174/70 heart rate 62 afebrile and maintaining oxygen saturation on nasal cannula. Laboratory data reviewed, hemoglobin 11.1, platelets 164, sodium 139, potassium 4.0, creatinine 1.08. He is continued on IV Lasix 40 mg twice a day. She is also receiving antibiotics for pneumonia. His weight is down to 93.8 kg from 99.79 on admission with a negative fluid balance for the previous 24 hours. Objective - Vital Signs Vital signs: Vital Signs Temp 98.4 F 04/01/18 08:00 Pulse 62 04/01/18 08:31 Resp 16 04/01/18 08:31 BP 174/70 04/01/18 08:00 Pulse Ox 94 L 04/01/18 08:00 Intake & Output 03/31/18 04/01/18 04/01/18 18:59 06:59 18:59 Intake Total 296 236 Output Total 2162 2900 1300 Balance -1866 -2900 -1064 Weight 93.8 kg Intake: IV 60 Invasive Line 1 60 Invasive Line 2 0 Oral 236 236 Output: Urine 1400 2300 1300 Straight 450 1950 Post Void Residual 762 600 Other: Voiding Method Toilet Indwelling Catheter Indwelling Catheter Urinal # Voids 2 2 # Bowel Movements 1 - Exam GENERAL: Well-appearing, well-nourished and in no acute distress. NECK: Supple without JVD or thyromegaly. LUNGS: There is bibasilar rales left worse than right. Diminished bilaterally. Respiration equal and unlabored. No wheezes or rhonchi. HEART: Irregular rate and rhythm with systolic murmur at the base, no rubs or gallops. S1 and S2 heard. EXTREMITIES: Normal range of motion, no edema right lower extremity with ongoing 1+ pitting edema to the left lower extremity . No clubbing or cyanosis. Peripheral pulses intact. - Labs CBC & Chem 7: 04/01/18 06:28 04/01/18 06:28 Labs: Abnormal Lab Results - Last 24 Hours (Table) 03/31/18 03/31/18 03/31/18 Range/Units 07:20 16:41 18:45 RBC (4.30-5.90) m/uL Hgb (13.0-17.5) gm/dL Hct (39.0-53.0) % Lymphocytes # (1.0-4.8) k/uL Chloride (98-107) mmol/L BUN (9-20) mg/dL Glucose (74-99) mg/dL POC Glucose (mg/dL) 188 H (75-99) mg/dL Magnesium 1.5 L (1.6-2.3) mg/dL Urine Protein Trace H (Negative) Urine Blood Trace H (Negative) Ur Leukocyte Esterase Small H (Negative) Urine WBC 9 H (0-5) /hpf Urine Bacteria Rare H (None) /hpf Urine Mucus Rare H (None) /hpf 03/31/18 04/01/18 04/01/18 Range/Units 20:32 06:28 06:28 RBC 4.12 L (4.30-5.90) m/uL Hgb 11.1 L (13.0-17.5) gm/dL Hct 34.5 L (39.0-53.0) % Lymphocytes # 0.8 L (1.0-4.8) k/uL Chloride 97 L (98-107) mmol/L BUN 33 H (9-20) mg/dL Glucose 154 H (74-99) mg/dL POC Glucose (mg/dL) 156 H (75-99) mg/dL Magnesium (1.6-2.3) mg/dL Urine Protein (Negative) Urine Blood (Negative) Ur Leukocyte Esterase (Negative) Urine WBC (0-5) /hpf Urine Bacteria (None) /hpf Urine Mucus (None) /hpf 04/01/18 Range/Units 06:28 RBC (4.30-5.90) m/uL Hgb (13.0-17.5) gm/dL Hct (39.0-53.0) % Lymphocytes # (1.0-4.8) k/uL Chloride (98-107) mmol/L BUN (9-20) mg/dL Glucose (74-99) mg/dL POC Glucose (mg/dL) 158 H (75-99) mg/dL Magnesium (1.6-2.3) mg/dL Urine Protein (Negative) Urine Blood (Negative) Ur Leukocyte Esterase (Negative) Urine WBC (0-5) /hpf Urine Bacteria (None) /hpf Urine Mucus (None) /hpf Microbiology - Last 24 Hours (Table) 03/28/18 13:10 Blood Culture - Preliminary Blood No Growth after 72 hours Assessment and Plan Assessment: ASSESSMENT 1. Acute on chronic systolic heart failure 2. Bilateral pneumonia 3. Diabetes mellitus 4. Coronary artery disease with previous bypass surgery 5. Hypertension 6. Dyslipidemia 7. Paroxysmal atrial fibrillation with controlled ventricular response on long- term anticoagulation 8. Peripheral arterial disease with prior stenting PLAN Continue IV Lasix and continue to monitor intake and output along with daily weights. Follow kidney function and electrolytes daily. Further recommendations to follow based upon clinical course. The above impression and plan of care have been discussed and directed by the signing physician. Maryjo Groves, nurse practitioner, acting as scribe for signing physician.
[2018-04-01 12:23] LABS: Glucose,Whole Blood 128 mg/dL (75-99)
[2018-04-01] MEDS: FOLIC ACID 1 MG TAB PO SCH (12:23)
[2018-04-01] MEDS ORDERED: TEMAZEPAM 15 MG CAP PO PRN (15:28)
--- NOTE | 2018-04-01 15:38 | PN ---
PROGRESS NOTE DATE OF SERVICE: 04/01/2018. INTERVAL HISTORY: This 77-year-old gentleman who was admitted with CHF acute exacerbation also possible bilateral pneumonia. The patient is on diuretics and as well as antibiotics. The patient also had a Buck catheter because of urinary obstruction. The patient is also on Flomax also. No chest pain, no palpitation. EXAM: Alert, oriented x3. The pulse is 67, blood pressure 157/81, respirations 16, temperature 96.7, pulse ox 93% on 2 L. HEENT: Conjunctivae normal. Oral mucosa moist. Neck is no jugular venous distention. No carotid bruit. No lymph node enlargement. CARDIOVASCULAR: S1, S2. RESPIRATORY: Breath sounds diminished in the bases. A few scattered rhonchi and crackles. ABDOMEN: Soft, obese. LEGS: Bilateral leg edema NERVOUS SYSTEM: No focal deficits. LABS: WBC 5.2, hemoglobin 11.1, glucose 158. ASSESSMENT: 1. Congestive heart failure acute exacerbation with acute on chronic systolic dysfunction ejection fraction 35-40%. 2. Possible bilateral pneumonia possibly gram-negative. 3. Increased WBC. 4. Urinary retention on Buck catheter. 5. Gait dysfunction. 6. Anemia of chronic disease. 7. History of atrial fibrillation. 8. Coronary artery disease, CABG. 9. Diabetes mellitus type 2. 10.Hypertension. 11.Hyperlipidemia. 12.History of myocardial infarction. 13.History of peripheral vascular disease. 14.History of cataracts. 15.Remote history of nicotine dependence. RECOMMENDATIONS AND DISCUSSION: I recommend to continue current medications, monitor, and symptomatic treatment. Otherwise at this time, we will monitor the patient closely. Change the diuretics to p.o. Increase ambulation. PT, OT evaluation, possible ECF rehab. Guarded prognosis. Further recommendations to follow. MMODL / IJN: [id number] /
[2018-04-01] MEDS: FUROSEMIDE 40 MG TAB PO SCH (16:29)
[2018-04-01] MEDS: ATORVASTATIN 10 MG TAB PO SCH (16:29)
[2018-04-01 17:21] LABS: Glucose,Whole Blood 86 mg/dL (75-99)
[2018-04-01] MEDS ORDERED: MELATONIN 5 MG TABLET PO SCH (21:00)
[2018-04-01 21:04] LABS: Glucose,Whole Blood 85 mg/dL (75-99)
[2018-04-02 06:01] LABS: Glucose,Whole Blood 87 mg/dL (75-99)
[2018-04-02] MEDS: INSULIN ASPART 100 UNIT/ML 1 ML 10 ML VIAL SQ SCH ×2 (06:03→12:08)
[2018-04-02] MEDS: PANTOPRAZOLE 40 MG TABLET PO SCH (06:48)
[2018-04-02] MEDS: CARVEDILOL 6.25 MG TAB PO SCH (06:48)
[2018-04-02 06:51] LABS: Basophils % (A) 1 %; Eosinophils # (A) 0.1 k/uL (0-0.7); Eosinophils % (A) 3 %; HCT 31.5 % (39.0-53.0); HGB 10.2 gm/dL (13.0-17.5); Lymphocytes # (A) 0.8 k/uL (1.0-4.8); Lymphocytes % (A) 17 %; MCH 26.7 pg (25.0-35.0); MCHC 32.5 g/dL (31.0-37.0); MCV 82.3 fL (80.0-100.0); Mean Platelet Volume 8.6; Monocytes # (A) 0.4 k/uL (0-1.0); Monocytes % (A) 8 %; Neutrophils # (A) 3.4 k/uL (1.3-7.7); Neutrophils % (A) 70 %; Platelet Count 145 k/uL (150-450); RBC 3.82 m/uL (4.30-5.90); RDW 15.2 % (11.5-15.5); WBC 4.8 k/uL (3.8-10.6)
[2018-04-02 07:01] LABS: Calcium 8.7 mg/dL (8.4-10.2); Magnesium 1.4 mg/dL (1.6-2.3); Potassium 3.5 mmol/L (3.5-5.1)
[2018-04-02] MEDS ORDERED: LOPERAMIDE 2 MG CAP PO PRN (07:59)
[2018-04-02] MEDS: APIXABAN 2.5 MG TABLET PO SCH (08:04)
[2018-04-02] MEDS: AZITHROMYCIN 500 MG TAB PO SCH (08:04)
[2018-04-02] MEDS: CHOLECALCIFEROL 1,000 UNIT TAB PO SCH (08:05)
[2018-04-02] MEDS: AMIODARONE 200 MG TAB PO SCH (08:05)
[2018-04-02] MEDS: TAMSULOSIN 0.4 MG CAP.ER.24H PO SCH (08:05)
[2018-04-02] MEDS: SPIRONOLACTONE 25 MG TAB PO SCH (08:06)
[2018-04-02] MEDS: ASPIRIN 81 MG PO SCH (08:06)
[2018-04-02] MEDS: LISINOPRIL 20 MG TAB PO SCH (08:06)
[2018-04-02] MEDS: metFORMIN 500 MG TAB PO SCH (08:07)
[2018-04-02] MEDS: FUROSEMIDE 40 MG TAB PO SCH (08:08)
[2018-04-02] MEDS: INSULIN DETEMIR 100 UNIT/ML 10 ML VIAL SQ SCH (08:15)
[2018-04-02 08:17] VITALS: RESP 18
[2018-04-02] MEDS: IPRATROPIUM-ALBUTEROL 3 ML NEB INHALATION SCH ×4 (08:18→15:03)
--- NOTE | 2018-04-02 09:03 | XR ---
EXAMINATION TYPE: XR chest 1V portable DATE OF EXAM: 04/02/2018 COMPARISON: 03/31/2018 HISTORY: Shortness of breath TECHNIQUE: Single frontal view of the chest is obtained. FINDINGS: Postoperative changes are seen and there is an interstitial pattern with subsegmental cons olidation and tiny effusions. Findings are slightly improved relative to the prior exam. IMPRESSION: Interval mild improvement of the interstitial pattern and areas of consolidation with bello spected tiny pleural effusions. Findings may been the basis of improving CHF or underlying pneumonia.
[2018-04-02 11:33] LABS: Glucose,Whole Blood 128 mg/dL (75-99)
[2018-04-02] MEDS ORDERED: MAGNESIUM SULFATE-D5W PMX 1 GM in DEXTROSE/WATER 1 100ML.BAG IVPB ONE (12:00)
[2018-04-02] MEDS: FOLIC ACID 1 MG TAB PO SCH (12:24)
--- NOTE | 2018-04-02 12:33 | P.DS ---
Providers Date of admission: 03/28/18 14:38 Attending physician: Ann Hurley Consults: 03/28/18 17:17 Consult Physician Routine Consulting Provider: Thanh Samano Consult Reason/Comments: pneumonia?? Do you want consulting provider notified?: Yes 03/28/18 17:18 Consult Physician Routine Consulting Provider: Osvaldo Vu Consult Reason/Comments: chf Do you want consulting provider notified?: Yes Primary care physician: Benjamin Simms Hospital Course: Final diagnosis 1. CHF acute exacerbation with acute on chronic systolic dysfunction ejection fraction 35-40%. Possible bilateral pneumonia possibly gram-negative. Increased WBC Urinary retention on Buck catheter. Gait dysfunction. Anemia of chronic disease. History of atrial fibrillation. CAD CABG. Diabetes mellitus type 2. Hypertension. Hyperlipidemia. History of myocardial infarction. History of peripheral vascular disease. History of cataracts. Remote history and nicotine dependence. Discharge disposition. Patient be discharged in a stable condition with a guarded prognosis to ECF. Total time time taken 35 minutes. Hospital course This 77-year-old gentleman with a past medical history of multiple medical problems was admitted to CHF acute exacerbation as well as pneumonia. Patient was treated with antibiotics and as well as diuretics. Patient improved significantly. Progression of 1200 mL per 24 hours is recommended. Otherwise said cardiology and pulmonology saw the patient. Patient be discharged in a stable condition with guarded prognosis. Buck catheter to be reevaluated in the ECF. See orders for further details. On exam vitals are stable. Cardio S1 and S2 normal. Respirator system few scattered rhonchi. Abdomen soft nontender. Nervous system diffusely weak. Plan - Discharge Summary Discharge Rx Participant: Yes New Discharge Prescriptions: New Azithromycin [Zithromax] 500 mg PO DAILY tab Carvedilol [Coreg] 6.25 mg PO BID-W/MEALS tab Furosemide [Lasix] 40 mg PO BID@0900,1600 tab Insulin Detemir [Levemir] 24 unit SQ DAILY syr Ipratropium-Albuterol Nebulize [Duoneb 0.5 mg-3 mg/3 ml Soln] 3 ml INHALATION RT-QID ampul.neb Pantoprazole [Protonix] 40 mg PO AC-BRKFST tablet. Tamsulosin [Flomax] 0.4 mg PO BID cap.er.24h Continue Aspirin 81 mg PO DAILY Lovastatin [Mevacor] 40 mg PO W/SUPPER Insulin Aspart Protam & Aspart [NovoLOG MIX 70-30 Flexpen] 10 unit SQ AC-TID metFORMIN HCL 1,000 mg PO BID Nitroglycerin Sl Tabs [Nitrostat] 0.4 mg SUBLINGUAL Q5M PRN PRN Reason: Chest Pain Spironolactone [Aldactone] 25 mg PO DAILY Lisinopril 40 mg PO DAILY Folic Acid 1 mg PO DAILY Apixaban [Eliquis] 2.5 mg PO BID #60 tablet Amiodarone [Cordarone] 200 mg PO DAILY amLODIPine [Norvasc] 10 mg PO DAILY Cholecalciferol (Vitamin D3) [Vitamin D3] 2,000 unit PO DAILY Insulin Glargine,Hum.rec.anlog [Basaglar Kwikpen U-100] 25 unit SQ HS Tamsulosin HCl [Flomax] 0.4 mg PO DAILY Discontinued Atenolol [Tenormin] 25 mg PO DAILY #30 tab Discharge Medication List Aspirin 81 mg PO DAILY 08/17/15 [History] Folic Acid 1 mg PO DAILY 08/17/15 [History] Insulin Aspart Protam & Aspart [NovoLOG MIX 70-30 Flexpen] 10 unit SQ AC-TID [History] Lisinopril 40 mg PO DAILY 08/17/15 [History] Lovastatin [Mevacor] 40 mg PO W/SUPPER 08/17/15 [History] Nitroglycerin Sl Tabs [Nitrostat] 0.4 mg SUBLINGUAL Q5M PRN 08/17/15 [History] Spironolactone [Aldactone] 25 mg PO DAILY 08/17/15 [History] metFORMIN HCL 1,000 mg PO BID 08/17/15 [History] Apixaban [Eliquis] 2.5 mg PO BID #60 tablet 12/10/16 [Rx] Amiodarone [Cordarone] 200 mg PO DAILY 03/28/18 [History] Cholecalciferol (Vitamin D3) [Vitamin D3] 2,000 unit PO DAILY 03/28/18 [History] Insulin Glargine,Hum.rec.anlog [Basaglar Kwikpen U-100] 25 unit SQ HS 03/28/18 [ History] Tamsulosin HCl [Flomax] 0.4 mg PO DAILY 03/28/18 [History] amLODIPine [Norvasc] 10 mg PO DAILY 03/28/18 [History] Azithromycin [Zithromax] 500 mg PO DAILY tab 04/02/18 [Rx] Carvedilol [Coreg] 6.25 mg PO BID-W/MEALS tab 04/02/18 [Rx] Furosemide [Lasix] 40 mg PO BID@0900,1600 tab 04/02/18 [Rx] Insulin Detemir [Levemir] 24 unit SQ DAILY syr 04/02/18 [Rx] Ipratropium-Albuterol Nebulize [Duoneb 0.5 mg-3 mg/3 ml Soln] 3 ml INHALATION RT -QID ampul.neb 04/02/18 [Rx] Pantoprazole [Protonix] 40 mg PO AC-BRKFST tablet. 04/02/18 [Rx] Tamsulosin [Flomax] 0.4 mg PO BID cap.er.24h 04/02/18 [Rx] Follow up Appointment(s)/Referral(s): Benjamin Simms MD [Primary Care Provider] - 1-2 days Patient Instructions/Handouts: Carvedilol (By mouth), Heart Failure (GEN), Low Sodium Diet (GEN), Fluid Restriction (GEN) Activity/Diet/Wound Care/Special Instructions: ac achs and humalog scale
[2018-04-02 13:14] VITALS: BP 154/68; PULSE 69; TEMP 96.8
--- NOTE | 2018-04-02 14:26 | P.PN ---
Subjective Progress Note Date: 04/02/18 Principal diagnosis: Acute hypoxic respiratory failure secondary to acute systolic congestive heart failure This is a pleasant 77-year-old gentleman who follows with Dr. Ahdikari in [place]. He has a history of coronary artery disease with previous coronary artery bypass grafting in 2001, peripheral vascular disease with previous stenting to the SFA, atrial fibrillation anticoagulated with Eliquis, congestive heart failure, hypertension, hyperlipidemia, diabetes mellitus. He has a 10 year pack per day smoking history however states quit in 2001 following his bypass. 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 He states he did not lose consciousness. He also noted some increasing shortness of breath. While at [place] his chest x-ray revealed bilateral infiltrates/effusions. Bilateral lower extremity edema. ProBNP level was 1270. He did have a T-max of 100.0. He did become quite hypoxic requiring 8 L of high flow nasal cannula to maintain O2 saturations in the 90s. Based on this he was referred here for further evaluation and treatment. This morning's chest x-ray continues to show bilateral infiltrates/effusions. Slightly improved today as compared to yesterday. White count 10.6. Hemoglobin 10.0. Creatinine 1.11. He is seen today in consultation. He is currently sitting up in a chair at the bedside. He is awake and alert in no acute distress. He states he is breathing easier today as compared to yesterday. Currently afebrile. Down to 6 L high flow nasal cannula and maintaining O2 saturations in the high 90s. He has been hemodynamically stable. He has been initiated on bronchodilators, antibiotics in the form of ceftriaxone and azithromycin, IV diuretics. Echocardiogram pending. The patient is seen again today 03/30/2018 in follow-up on the selective care unit. He is awake and alert in no acute distress. He is breathing quite a bit better today as compared to yesterday. Computed tomography scan of the chest reveals bilateral pleural effusions suggestive of congestive heart failure. Echocardiogram reveals impaired left ventricular systolic function with ejection fraction 35-40%. He remains on diuretics. Blood cultures reveals no growth. Urine culture reveals no growth. He is afebrile. Maintaining good O2 saturations in the upper 90s on 4 L/m per nasal cannula. Reevaluated today on 03/31/2018, patient continues to do well, breathing a lot easier, dramatic improvement noted on the chest x-ray especially on the right side, all the fluid has completely resolved. Clinically the patient is much better with diuretics, and of course does not usually seen in pneumonia, it is mostly seen in people with congestive heart failure. Patient continues to diurese, I kept him on Lasix at 40 mg IV push every 12 hours, renal functioning is better today compared to the last couple of days. BUN is 39 and creatinine is 1.11. Chest x-ray was reviewed, possibility ofdisease in the left lung is considered but again I feel it is less likely considering the dramatic improvement with diuretics. Not to mention the patient is clinically significantly improved. Reevaluated today on 04/01/2018, patient continues to do well, breathing easier, less cough and less shortness of breath. Remains on relatively high dose of Lasix 40 mg IV push every 12 hours, Buck catheter was placed back again mostly because of urine retention. Renal functioning seems to be improving in spite of aggressive diuresis. Hence I plan to keep him on Lasix, and a follow-up chest x-ray was ordered to be done in a.m. On 04/02/2018 patient seen again on selective care unit. He is sitting up in the chair, in no acute distress, eating lunch. Room air pulse ox is 97%, he is afebrile, hemodynamically stable. Lung sounds are clear to auscultation, no rhonchi, no wheezes or rales noted. Patient has residual plus pitting edema in bilateral lower extremities, patient has diuresed extensively, and today's weight is 88 kg, down 9.5 kg since admission. He is in -2600 mL fluid balance over the last 24 hours. Today's labs were reviewed, his chest x-ray has been reviewed, and shows interval improvement of the interstitial pattern and areas of consolidation with tiny pleural effusions. Overall remains clinically stable , and the plan is to discharge home today. Objective - Vital Signs Vital signs: Vital Signs Temp 96.8 F L 04/02/18 12:00 Pulse 69 04/02/18 12:00 Resp 18 04/02/18 12:00 BP 154/68 04/02/18 12:00 Pulse Ox 97 04/02/18 12:00 Intake & Output 04/01/18 04/02/18 04/02/18 18:59 06:59 18:59 Intake Total 1092 320 Output Total 1999 1700 500 Balance -908 -1700 -180 Weight 88 kg Intake: Oral 1092 320 Output: Urine 1999 1699 500 Straight 1999 Other: Voiding Method Indwelling Catheter Indwelling Catheter Indwelling Catheter # Bowel Movements 2 - Exam - Constitutional General appearance: obese - EENT Eyes: EOMI, PERRLA ENT: hard of hearing Ears: bilateral: normal - Neck Neck: normal ROM Carotids: bilateral: upstroke normal Thyroid: bilateral: normal size - Respiratory Respiratory: Lung sounds are clear to auscultation - Cardiovascular Rhythm: regular Heart sounds: normal: S1, S2 - Gastrointestinal General gastrointestinal: no organomegaly, soft, no tenderness - Integumentary Integumentary: normal - Neurologic Neurologic: CNII-XII intact - Musculoskeletal Musculoskeletal: generalized weakness - Psychiatric Psychiatric: A&O x's 3, intact judgment & insight - Labs CBC & Chem 7: 04/02/18 05:31 04/02/18 05:31 Labs: Abnormal Lab Results - Last 24 Hours (Table) 04/02/18 04/02/18 04/02/18 Range/Units 05:31 05:31 11:31 RBC 3.82 L (4.30-5.90) m/uL Hgb 10.2 L (13.0-17.5) gm/dL Hct 31.5 L (39.0-53.0) % Plt Count 145 L (150-450) k/uL Lymphocytes # 0.8 L (1.0-4.8) k/uL Chloride 95 L (98-107) mmol/L Carbon Dioxide 32 H (22-30) mmol/L BUN 26 H (9-20) mg/dL POC Glucose (mg/dL) 128 H (75-99) mg/dL Magnesium 1.4 L (1.6-2.3) mg/dL Microbiology - Last 24 Hours (Table) 03/28/18 13:10 Blood Culture - Preliminary Blood No Growth after 96 hours Assessment and Plan Plan: Assessment: #1 Acute hypoxic respiratory failure secondary to an acute exacerbation of systolic congestive heart failure in a patient with echocardiogram revealing ejection fraction between 35-40%. #2 Acute hypoxic respiratory failure secondary to above, doubt pneumonia. #3 History of atrial fibrillation adequately regulated with Eliquis. #4 History of coronary artery disease with previous coronary artery bypass grafting. #5 Hypertension. #6 Hyperlipidemia. #7 Diabetes mellitus. #8 Peripheral vascular disease with previous stenting of the right SFA. #9 History of chronic tobacco dependence however quit 2001. Plan: Patient has responded favorably to diuresis, he is down 9.5 kg in weight since admission. Breathing easier, he is now on room air, bilateral lower extremity edema is improving, although there is some residual edema remains. Clinically remains stable, chest x-ray shows improvement in the appearance of interstitial pattern. Stable for discharge home from pulmonary standpoint. I performed a history & physical examination of the patient and discussed their management with my nurse practitioner, Colleen Gregory. I reviewed the nurse practitioner's note and agree with the documented findings and plan of care. Lung sounds are clear. The findings and the impression was discussed with the patient. I attest to the documentation by the nurse practitioner. Time with Patient: Less than 30
== END 2018-04-02 15:58 | DRG 291 ==
LOC: EC 12:56 → 6SEL 14:38
PROVIDERS: ADMIT Hospitalist; ATTEND Hospitalist
DX: I11.0 Hypertensive heart disease with heart failure (principal); J96.01 Acute respiratory failure with hypoxia; J15.6 Pneumonia due to other Gram-negative bacteria; D63.8 Anemia in other chronic diseases classified elsewhere; E11.51 Type 2 diabetes mellitus with diabetic peripheral angiopathy without gangrene; E78.5 Hyperlipidemia, unspecified; I25.10 Atherosclerotic heart disease of native coronary artery without angina pectoris; I25.2 Old myocardial infarction; I48.0 Paroxysmal atrial fibrillation; I50.23 Acute on chronic systolic (congestive) heart failure; N13.9 Obstructive and reflux uropathy, unspecified; W01.0XXA Fall on same level from slipping, tripping and stumbling without subsequent striking against object, initial encounter; Z79.01 Long term (current) use of anticoagulants; Z79.4 Long term (current) use of insulin; Z79.82 Long term (current) use of aspirin; Z79.899 Other long term (current) drug therapy; Z86.73 Personal history of transient ischemic attack (TIA), and cerebral infarction without residual deficits; Z87.440 Personal history of urinary (tract) infections; Z87.891 Personal history of nicotine dependence; Z95.1 Presence of aortocoronary bypass graft; Z95.5 Presence of coronary angioplasty implant and graft; I70.219 Atherosclerosis of native arteries of extremities with intermittent claudication, unspecified extremity; Z98.42 Cataract extraction status, left eye; Z98.41 Cataract extraction status, right eye
CPT/HCPCS: 36415; 71045; 71046; 71260; 80048; 80053; 81001; 82550; 82553; 83036; 83605; 83735; 83880; 84484; 85025; 85610; 85730; 87040; 87086; 87502; 93005; 93306; 94640; 94660; 94760; 96365; 96374; 96375; 99285

== ENCOUNTER 2020-05-31 16:31 | Inpatient (IN) | payer MEDICARE, OTHER ==
[2020-05-31] MEDS: MORPHINE SULFATE 4 MG/ML SYRINGE IVP PRN (16:55)
--- NOTE | 2020-05-31 17:20 | XR ---
EXAMINATION TYPE: XR ankle complete LT DATE OF EXAM: 05/31/2020 COMPARISON: 05/31/2020 HISTORY: Pain. Fall 3 days ago. TECHNIQUE: 3 views FINDINGS: There is calcification at the medial malleolus. There is comminuted fracture distal fibula with lateral displacement of the distal fragment and also lateral displacement of the talus. There is pes planus deformity. There is apparent chronic dorsal dislocations at the tarsometatarsal joints. T he lateral displacement of the talus is 1.9 cm. Fractures do not appear acute. There is soft tissue s welling around the ankle. There is probably an old vertical fracture through the posterior malleolus with the fragment displaced 8 mm. IMPRESSION: Deformity of the ankle with subacute fracture of the lateral malleolus and lateral partia l dislocation of the talus. There is probably old posterior malleolus mildly displaced chip fracture. There is also some chronic dislocations at the tarsometatarsal joints. 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 The left ankle does not appear changed compared to [place] exam today.
[2020-05-31] MEDS ORDERED: NALOXONE 0.4 MG/ML 1 ML VIAL IV PRN (17:59)
--- NOTE | 2020-05-31 18:01 | ED ---
Lower Extremity Injury HPI - General Source: EMS Mode of arrival: EMS Limitations: physical limitation <Cassi Nice - Last Filed: 05/31/20 19:20> <Vu Bee - Last Filed: 06/03/20 15:29> - General Chief Complaint: Extremity Injury, Lower Stated Complaint: Left foot injury Time Seen by Provider: 05/31/20 16:38 - History of Present Illness Initial Comments: 79-year-old insulin-dependent diabetic presents emergency department today for chief complaint of left ankle and foot pain. Patient states that he has had a bad left ankle, patient states he was still ambulate on the foot. States he has had decreased sensation in feet b/l for quite some time. Patient states that he fell secondary to tripping and falling on Monday he states his walking on the ankle since. He states that today when he woke up he noticed a bump and increased pain and some bruising. Patient states that he went to an urgent care in [facility], where they took xrays, wrapped foot and sent patient to [facility] for further evaluation. Patient has no additional complaints he denied any head injury neck injury on fall denies any headache neck pain abdominal or chest trauma or pain. Patient appears well nontoxic in no distress on arrival, complaining he is hungry. (Cassi Nice) - Related Data Home Medications Medication Instructions Recorded Confirmed Aspirin 81 mg PO DAILY 08/17/15 05/31/20 Insulin Aspart Protam & Aspart 10 unit SQ AC-TID 08/17/15 05/31/20 [NovoLOG MIX 70-30 Flexpen] Nitroglycerin Sl Tabs [Nitrostat] 0.4 mg SUBLINGUAL Q5M PRN 08/17/15 05/31/20 Spironolactone [Aldactone] 25 mg PO DAILY 08/17/15 05/31/20 Amiodarone [Cordarone] 200 mg PO DAILY 03/28/18 05/31/20 Cholecalciferol (Vitamin D3) 2,000 unit PO DAILY 03/28/18 05/31/20 [Vitamin D3] Tamsulosin HCl [Flomax] 0.4 mg PO HS 03/28/18 05/31/20 Acetaminophen [Tylenol] 1,000 mg PO DAILY PRN 05/31/20 05/31/20 Apixaban [Eliquis] 5 mg PO BID 05/31/20 05/31/20 Atorvastatin [Lipitor] 80 mg PO HS 05/31/20 05/31/20 Clotrimazole/Betameth Cream 1 applic TOPICAL BID PRN 05/31/20 05/31/20 [Lotrisone] Fluticasone Nasal [place] [Flonase 2 spr EA NOSTRIL DAILY PRN 05/31/20 05/31/20 Nasal [place]] Melatonin 10 mg PO HS 05/31/20 05/31/20 Metoprolol Tartrate 25 mg PO BID 05/31/20 05/31/20 Nighttime Sleep Aid (Unknown 1 tab PO HS PRN 05/31/20 05/31/20 Strength) Sacubitril/Valsartan [Entresto 24 1 tab PO BID 05/31/20 05/31/20 mg-26 mg Tablet] Allergies Allergy/AdvReac Type Severity Reaction Status Date / Time No Known Allergies Allergy Verified 06/02/20 15:11 Review of Systems ROS Other: All systems not noted in ROS Statement are negative. <Cassi Nice - Last Filed: 05/31/20 19:20> ROS Other: All systems not noted in ROS Statement are negative. <Vu Bee - Last Filed: 06/03/20 15:29> ROS Statement: Those systems with pertinent positive or pertinent negative responses have been documented in the HPI. Past Medical History Past Medical History: Atrial Fibrillation, Coronary Artery Disease (CAD), Heart Failure, Diabetes Mellitus, Hyperlipidemia, Hypertension, Myocardial Infarction ([place]), Prostate Disorder Additional Past Medical History / Comment(s): sores on arms, upper bridge,past uti,NTERMITTENT CLAUDICATION, PAD pt was admited to [facility] 07/2014 for CHF and A-fib Last Myocardial Infarction Date:: unknown History of Any Multi-Drug Resistant Organisms: None Reported Past Surgical History: Coronary Bypass/CABG, Heart Catheterization Additional Past Surgical History / Comment(s): quad VESSEL CABG 2001( LEHMAN TO LAD, MONTY TO RCA, SVG TO KATT AND OM-EF 45%), susanna cataracts, 11-4-15 ABD AORTIC AORTOGRAM,SUSANNA LOWER EXTREMITY RUNNOFF,BALLOON ANGIOPLASTY RT SFA,STENT TO SFA. Past Anesthesia/Blood Transfusion Reactions: No Reported Reaction Past Psychological History: No Psychological Hx Reported Smoking Status: Former smoker Past Alcohol Use History: Rare Past Drug Use History: None Reported - Past Family History Mother Family Medical History: No Reported History Additional Family Medical History / Comment(s): PT POOR HISTORIAN ON PARENTS HX- ALL HE KNEW WAS SHE HAD TB WHEN SHE WAS YOUNGER Father Family Medical History: Dementia Additional Family Medical History / Comment(s): CARDAIC DISEASE <Cassi Nice - Last Filed: 05/31/20 19:20> General Exam Limitations: physical limitation <Cassi Nice - Last Filed: 05/31/20 19:20> - General Exam Comments Initial Comments: General: The patient is awake and alert, in no distress Eye: Pupils are equal, round and reactive to light, extra-ocular movements are intact. No nystagmus. There is normal conjunctiva bilaterally. No signs of icterus. Ears, nose, mouth and throat: There are moist mucous membranes and no oral lesions. No raccoon or Mendez sign Neck: The neck is supple, there is no tenderness or JVD. No midline tenderness to palpation of the cervical spine forward towards the cervical spine without pain Cardiovascular: There is a regular rate and rhythm. No murmur, rub or gallop is appreciated. Respiratory: Lungs are clear to auscultation, respirations are non-labored, breath sounds are equal. No wheezes, stridor, rales, or rhonchi. Gastrointestinal: Soft, non-distended, non-tender abdomen without masses or organomegaly noted. There is no rebound or guarding present. Musculoskeletal: Significant left ankle swelling there is bruising over the medial aspect with gross deformity. Patient's capillary refill less than 3 seconds +3 pitting edema cannot range at the left ankle secondary to pain Normal ROM, no tenderness at knees hips b/l and right ankle. Strength 5/5 of the unaffected joints. Sensation intact but decreases of the feet b/l. Radial pulses +2, pulses by doppler. Neurological: A&O x 3. CN II-XII intact grossly, There are no obvious motor or sensory deficits. Coordination appears grossly intact. Speech is normal. Skin: Skin is warm and dry and no rashes or lesions are noted. Psychiatric: Cooperative, appropriate mood & affect, normal judgment. (Cassi Nice) Course Vital Signs 05/31/20 05/31/20 05/31/20 16:35 19:00 19:33 Temperature 98.7 F 98.2 F Pulse Rate 84 66 Respiratory 18 16 16 Rate Blood Pressure 131/77 136/72 O2 Sat by Pulse 100 97 98 Oximetry Medical Decision Making - Lab Data Result diagrams: 05/31/20 18:27 05/31/20 18:27 <Cassi Nice - Last Filed: 05/31/20 19:20> - Lab Data Result diagrams: 06/03/20 05:43 06/03/20 05:43 <Vu Bee - Last Filed: 06/03/20 15:29> - Medical Decision Making 79yo male presenting for fall, left ankle pain, swelling and bruising. Subacute fractures noted as well as subacute dislocations. patient did recently falls, concern for acute on subacute clinically. Patient has new pain, decreased ability to completely weight bear. Discussed case with Dr Dorsey and patietn evaluated by attending Dr Bee-- Dr. Gregg feels this is mostly chronic from XR read, he recommends, splint or boot with otupatient f/u tomorrow. However after having at length discussion with patient and attenidng we feel home may not be a safe option for the patient. He lives alone with elderly , states he feels unsafe going home secondary to inability to weight bear on left leg and right foot neuropathy. Patient agreeable/prefers admission. Patient will be admitted to medicine with orthopedic consultation. (Cassi Nice) - Lab Data Lab Results 05/31/20 05/31/20 05/31/20 Range/Units 18:27 18:27 21:17 WBC 5.7 5.2 (3.8-10.6) k/uL RBC 3.45 L 3.29 L (4.30-5.90) m/uL Hgb 8.3 L 7.9 L (13.0-17.5) gm/dL Hct 28.4 L 27.3 L (39.0-53.0) % MCV 82.4 83.0 (80.0-100.0) fL MCH 24.0 L 24.1 L (25.0-35.0) pg MCHC 29.2 L 29.1 L (31.0-37.0) g/dL RDW 18.7 H 18.7 H (11.5-15.5) % Plt Count 132 L 118 L (150-450) k/uL Neutrophils % 75 75 % Lymphocytes % 15 15 % Monocytes % 6 6 % Eosinophils % 1 2 % Basophils % 1 1 % Neutrophils # 4.3 3.9 (1.3-7.7) k/uL Lymphocytes # 0.9 L 0.8 L (1.0-4.8) k/uL Monocytes # 0.3 0.3 (0-1.0) k/uL Eosinophils # 0.1 0.1 (0-0.7) k/uL Basophils # 0.1 0.0 (0-0.2) k/uL Hypochromasia Marked Marked Anisocytosis Slight Slight Microcytosis Slight Slight Sodium 137 (137-145) mmol/L Potassium 5.0 (3.5-5.1) mmol/L Chloride 112 H (98-107) mmol/L Carbon Dioxide 20 L (22-30) mmol/L Anion Gap 5 mmol/L BUN 33 H (9-20) mg/dL Creatinine 1.15 (0.66-1.25) mg/dL Est GFR (CKD-EPI)AfAm 71 (>60 ml/min/1.73 sqM) Est GFR (CKD-EPI)NonAf 61 (>60 ml/min/1.73 sqM) Glucose 206 H (74-99) mg/dL POC Glucose (mg/dL) (75-99) mg/dL POC Glu Show Jumping Instructor ID Calcium 8.9 (8.4-10.2) mg/dL Total Bilirubin 0.5 (0.2-1.3) mg/dL AST 18 (17-59) U/L ALT 19 (4-49) U/L Alkaline Phosphatase 119 (38-126) U/L Total Protein 5.7 L (6.3-8.2) g/dL Albumin 3.3 L (3.5-5.0) g/dL 05/31/20 06/01/20 06/01/20 Range/Units 21:40 03:43 06:27 WBC 4.5 (3.8-10.6) k/uL RBC 2.99 L (4.30-5.90) m/uL Hgb 7.3 L (13.0-17.5) gm/dL Hct 25.3 L (39.0-53.0) % MCV 84.5 (80.0-100.0) fL MCH 24.3 L (25.0-35.0) pg MCHC 28.8 L (31.0-37.0) g/dL RDW 18.7 H (11.5-15.5) % Plt Count 135 L (150-450) k/uL Neutrophils % 69 % Lymphocytes % 19 % Monocytes % 6 % Eosinophils % 3 % Basophils % 1 % Neutrophils # 3.1 (1.3-7.7) k/uL Lymphocytes # 0.9 L (1.0-4.8) k/uL Monocytes # 0.3 (0-1.0) k/uL Eosinophils # 0.1 (0-0.7) k/uL Basophils # 0.0 (0-0.2) k/uL Hypochromasia Marked Anisocytosis Slight Microcytosis Sodium (137-145) mmol/L Potassium (3.5-5.1) mmol/L Chloride (98-107) mmol/L Carbon Dioxide (22-30) mmol/L Anion Gap mmol/L BUN (9-20) mg/dL Creatinine (0.66-1.25) mg/dL Est GFR (CKD-EPI)AfAm (>60 ml/min/1.73 sqM) Est GFR (CKD-EPI)NonAf (>60 ml/min/1.73 sqM) Glucose (74-99) mg/dL POC Glucose (mg/dL) 269 H 204 H (75-99) mg/dL POC Glu Show Jumping Instructor LUISA Willoughby, Amirah Brooks, Jeri Calcium (8.4-10.2) mg/dL Total Bilirubin (0.2-1.3) mg/dL AST (17-59) U/L ALT (4-49) U/L Alkaline Phosphatase (38-126) U/L Total Protein (6.3-8.2) g/dL Albumin (3.5-5.0) g/dL 06/01/20 06/01/20 06/01/20 Range/Units 11:32 12:42 16:49 WBC (3.8-10.6) k/uL RBC (4.30-5.90) m/uL Hgb (13.0-17.5) gm/dL Hct (39.0-53.0) % MCV (80.0-100.0) fL MCH (25.0-35.0) pg MCHC (31.0-37.0) g/dL RDW (11.5-15.5) % Plt Count (150-450) k/uL Neutrophils % % Lymphocytes % % Monocytes % % Eosinophils % % Basophils % % Neutrophils # (1.3-7.7) k/uL Lymphocytes # (1.0-4.8) k/uL Monocytes # (0-1.0) k/uL Eosinophils # (0-0.7) k/uL Basophils # (0-0.2) k/uL Hypochromasia Anisocytosis Microcytosis Sodium 136 L (137-145) mmol/L Potassium 5.9 H (3.5-5.1) mmol/L Chloride 109 H (98-107) mmol/L Carbon Dioxide 20 L (22-30) mmol/L Anion Gap 7 mmol/L BUN 33 H (9-20) mg/dL Creatinine 1.29 H (0.66-1.25) mg/dL Est GFR (CKD-EPI)AfAm 62 (>60 ml/min/1.73 sqM) Est GFR (CKD-EPI)NonAf 53 (>60 ml/min/1.73 sqM) Glucose 268 H (74-99) mg/dL POC Glucose (mg/dL) 281 H 342 H (75-99) mg/dL POC Glu Show Jumping Instructor ID Cerrato, Bindumartin Forbesews Bindu Calcium 8.7 (8.4-10.2) mg/dL Total Bilirubin 0.4 (0.2-1.3) mg/dL AST 16 L (17-59) U/L ALT 18 (4-49) U/L Alkaline Phosphatase 122 (38-126) U/L Total Protein 5.8 L (6.3-8.2) g/dL Albumin 3.3 L (3.5-5.0) g/dL 06/01/20 06/02/20 06/02/20 Range/Units 20:31 00:46 05:24 WBC (3.8-10.6) k/uL RBC (4.30-5.90) m/uL Hgb (13.0-17.5) gm/dL Hct (39.0-53.0) % MCV (80.0-100.0) fL MCH (25.0-35.0) pg MCHC (31.0-37.0) g/dL RDW (11.5-15.5) % Plt Count (150-450) k/uL Neutrophils % % Lymphocytes % % Monocytes % % Eosinophils % % Basophils % % Neutrophils # (1.3-7.7) k/uL Lymphocytes # (1.0-4.8) k/uL Monocytes # (0-1.0) k/uL Eosinophils # (0-0.7) k/uL Basophils # (0-0.2) k/uL Hypochromasia Anisocytosis Microcytosis Sodium 134 L (137-145) mmol/L Potassium 5.6 H 5.3 H (3.5-5.1) mmol/L Chloride 110 H (98-107) mmol/L Carbon Dioxide 18 L (22-30) mmol/L Anion Gap 6 mmol/L BUN 34 H (9-20) mg/dL Creatinine 1.20 (0.66-1.25) mg/dL Est GFR (CKD-EPI)AfAm 67 (>60 ml/min/1.73 sqM) Est GFR (CKD-EPI)NonAf 58 (>60 ml/min/1.73 sqM) Glucose 239 H (74-99) mg/dL POC Glucose (mg/dL) 346 H (75-99) mg/dL POC Glu Show Jumping Instructor La Nena Cartwright Calcium 8.3 L (8.4-10.2) mg/dL Total Bilirubin 0.3 (0.2-1.3) mg/dL AST 19 (17-59) U/L ALT 19 (4-49) U/L Alkaline Phosphatase 110 (38-126) U/L Total Protein 5.1 L (6.3-8.2) g/dL Albumin 2.8 L (3.5-5.0) g/dL 06/02/20 Range/Units 06:26 WBC (3.8-10.6) k/uL RBC (4.30-5.90) m/uL Hgb (13.0-17.5) gm/dL Hct (39.0-53.0) % MCV (80.0-100.0) fL MCH (25.0-35.0) pg MCHC (31.0-37.0) g/dL RDW (11.5-15.5) % Plt Count (150-450) k/uL Neutrophils % % Lymphocytes % % Monocytes % % Eosinophils % % Basophils % % Neutrophils # (1.3-7.7) k/uL Lymphocytes # (1.0-4.8) k/uL Monocytes # (0-1.0) k/uL Eosinophils # (0-0.7) k/uL Basophils # (0-0.2) k/uL Hypochromasia Anisocytosis Microcytosis Sodium (137-145) mmol/L Potassium (3.5-5.1) mmol/L Chloride (98-107) mmol/L Carbon Dioxide (22-30) mmol/L Anion Gap mmol/L BUN (9-20) mg/dL Creatinine (0.66-1.25) mg/dL Est GFR (CKD-EPI)AfAm (>60 ml/min/1.73 sqM) Est GFR (CKD-EPI)NonAf (>60 ml/min/1.73 sqM) Glucose (74-99) mg/dL POC Glucose (mg/dL) 227 H (75-99) mg/dL POC Glu Show Jumping Instructor LUISA Fern La [place]ena Calcium (8.4-10.2) mg/dL Total Bilirubin (0.2-1.3) mg/dL AST (17-59) U/L ALT (4-49) U/L Alkaline Phosphatase (38-126) U/L Total Protein (6.3-8.2) g/dL Albumin (3.5-5.0) g/dL Disposition Is patient prescribed a controlled substance at d/c from ED?: No Time of Disposition: 18:33 Decision to Admit Reason: Admit from EC Decision Date: 05/31/20 Decision Time: 18:33 <Cassi Nice - Last Filed: 05/31/20 19:20> <Vu Bee - Last Filed: 06/03/20 15:29> Clinical Impression: Trimalleolar fracture of ankle, closed, Recurrent dislocation, left ankle, Fall, Intractable pain, Inability to bear weight, Blood glucose elevated, Anemia Disposition: ADMITTED IP TO THIS HOSP Condition: Stable
[2020-05-31 19:17] LABS: Anisocytosis Slight; Basophils # (A) 0.1 k/uL (0-0.2); Basophils % (A) 1 %; Eosinophils # (A) 0.1 k/uL (0-0.7); Eosinophils % (A) 1 %; HCT 28.4 % (39.0-53.0); HGB 8.3 gm/dL (13.0-17.5); Hypochromasia Marked; Lymphocytes # (A) 0.9 k/uL (1.0-4.8); Lymphocytes % (A) 15 %; MCHC 29.2 g/dL (31.0-37.0); MCV 82.4 fL (80.0-100.0); Mean Platelet Volume 7.8; Microcytosis Slight; Monocytes # (A) 0.3 k/uL (0-1.0); Monocytes % (A) 6 %; Neutrophils # (A) 4.3 k/uL (1.3-7.7); Neutrophils % (A) 75 %; Platelet Count 132 k/uL (150-450); RBC 3.45 m/uL (4.30-5.90); RDW 18.7 % (11.5-15.5); WBC 5.7 k/uL (3.8-10.6)
[2020-05-31 19:18] LABS: Albumin 3.3 g/dL (3.5-5.0); Calcium 8.9 mg/dL (8.4-10.2); Total Bilirubin 0.5 mg/dL (0.2-1.3); Total Protein 5.7 g/dL (6.3-8.2)
[2020-05-31] MEDS ORDERED: FLUTICASONE 50MCG/SPRAY NASAL 16GM EA NOSTRIL PRN (20:57)
[2020-05-31] MEDS: SODIUM CHLORIDE 0.9% 1,000 ML IV SCH (21:31)
[2020-05-31 21:41] LABS: Glucose,Whole Blood 269 mg/dL (75-99)
[2020-05-31] MEDS: INSULIN ASPART (NovoLOG) 100 UNIT/ML VIAL SQ SCH (21:43)
[2020-05-31] MEDS: TAMSULOSIN 0.4 MG CAP.ER.24H PO SCH (21:43)
[2020-05-31] MEDS: ACETAMINOPHEN TAB 500 MG TAB PO SCH (21:43)
[2020-05-31] MEDS: ATORVASTATIN 80 MG TAB PO SCH (21:43)
[2020-05-31 21:46] LABS: Anisocytosis Slight; Basophils % (A) 1 %; Eosinophils # (A) 0.1 k/uL (0-0.7); Eosinophils % (A) 2 %; HCT 27.3 % (39.0-53.0); HGB 7.9 gm/dL (13.0-17.5); Hypochromasia Marked; Lymphocytes # (A) 0.8 k/uL (1.0-4.8); Lymphocytes % (A) 15 %; MCH 24.1 pg (25.0-35.0); MCHC 29.1 g/dL (31.0-37.0); Mean Platelet Volume 7.9; Microcytosis Slight; Monocytes # (A) 0.3 k/uL (0-1.0); Monocytes % (A) 6 %; Neutrophils # (A) 3.9 k/uL (1.3-7.7); Neutrophils % (A) 75 %; Platelet Count 118 k/uL (150-450); RBC 3.29 m/uL (4.30-5.90); RDW 18.7 % (11.5-15.5); WBC 5.2 k/uL (3.8-10.6)
[2020-05-31] MEDS: FAMOTIDINE 20 MG TAB PO SCH (21:50)
[2020-05-31] MEDS: METOPROLOL TARTRATE 25 MG TAB PO SCH (21:53)
[2020-05-31] MEDS: HYDROmorphone 0.5 MG/0.5 ML SYRINGE IVP PRN (23:34)
[2020-06-01] MEDS: HYDROmorphone 0.5 MG/0.5 ML SYRINGE IVP PRN ×2 (03:06→21:25)
[2020-06-01 03:58] LABS: Anisocytosis Slight; Basophils % (A) 1 %; Eosinophils # (A) 0.1 k/uL (0-0.7); Eosinophils % (A) 3 %; HCT 25.3 % (39.0-53.0); HGB 7.3 gm/dL (13.0-17.5); Hypochromasia Marked; Lymphocytes # (A) 0.9 k/uL (1.0-4.8); Lymphocytes % (A) 19 %; MCH 24.3 pg (25.0-35.0); MCHC 28.8 g/dL (31.0-37.0); MCV 84.5 fL (80.0-100.0); Monocytes # (A) 0.3 k/uL (0-1.0); Monocytes % (A) 6 %; Neutrophils # (A) 3.1 k/uL (1.3-7.7); Neutrophils % (A) 69 %; Platelet Count 135 k/uL (150-450); RBC 2.99 m/uL (4.30-5.90); RDW 18.7 % (11.5-15.5); WBC 4.5 k/uL (3.8-10.6)
[2020-06-01 06:29] LABS: Glucose,Whole Blood 204 mg/dL (75-99)
[2020-06-01] MEDS: METOPROLOL TARTRATE 25 MG TAB PO SCH ×2 (07:38→21:24)
[2020-06-01] MEDS: ASPIRIN 81 MG PO SCH (07:38)
[2020-06-01] MEDS: AMIODARONE 200 MG TAB PO SCH (07:38)
[2020-06-01] MEDS: ACETAMINOPHEN TAB 500 MG TAB PO SCH ×3 (07:38→23:32)
[2020-06-01] MEDS: INSULIN ASPART (NovoLOG) 100 UNIT/ML VIAL SQ SCH ×4 (07:39→21:24)
[2020-06-01] MEDS: FAMOTIDINE 20 MG TAB PO SCH (07:44)
[2020-06-01] MEDS ORDERED: APIXABAN 5 MG TAB PO SCH (09:00)
[2020-06-01 11:36] LABS: Glucose,Whole Blood 281 mg/dL (75-99)
[2020-06-01] MEDS: CHOLECALCIFEROL 1,000 UNIT TAB PO SCH (12:09)
--- NOTE | 2020-06-01 12:28 | P.HPIM ---
History of Present Illness H&P Date: 06/01/20 Chief Complaint: Left foot injury Mr. Powell is a 79-year-old male with a past medical history of coronary artery disease, congestive heart failure, atrial fibrillation, diabetes mellitus, chocolate neuropathy, hypertension, hyperlipidemia, prostate disorder, peripheral arterial disease coming into the hospital with a chief complaint of left leg pain. Patient is very hard of hearing. Most of the history is given by the was at bedside today. His mentions that on Monday he was working in the garage where he slipped and had a fall and since then he started to have pain in his left foot. At baseline patient walks with a walker, as he has chocolate neuropathy and decreased sensation in both of his feet. Patient stated home for a couple of days until yesterday morning when he went to urgent care that [facility] had x-rays done there and his foot was wrapped and sent to [facility] for further evaluation. In the emergency patient had ankle x-ray done showing fracture of the lateral malleolus and lateral partial dislocation of the talus. There is probably old posterior malleolus mildly displaced chip fracture. 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 So orthopedic consultation was obtained and patient is admitted for further evaluation. Currently the patient is sitting up in the bed and having his lunch. Patient does not complain of pain as he has decreased sensation in his feet. But states that he is not able to bear weight on the left leg. On reviewing the patient's labs his hemoglobin was low at 7.3, patient's sees for the past couple of years with a slow decline in his health. But patient denies having any blood in his stools. Patient is on Apixaban for anticoagulation due to history of chronic atrial fibrillation. He denies having any chest pain or difficulty in breathing. Patient denies having any swelling of his lower extremities. Review of Systems REVIEW OF SYSTEMS: CONSTITUTIONAL: No fever, no malaise, no fatigue. HEENT: No recent visual problems or hearing problems. Denied any sore throat. CARDIOVASCULAR: No orthopnea, PND, no palpitations, no syncope. PULMONARY: No shortness of breath, no cough, no hemoptysis. GASTROINTESTINAL: No diarrhea, no nausea,no abdominal pain. NEUROLOGICAL: No headaches, no weakness, no numbness. HEMATOLOGICAL: Denies any bleeding or petechiae. GENITOURINARY: Denies any burning micturition, frequency, or urgency. MUSCULOSKELETAL/RHEUMATOLOGICAL: As per HPI ENDOCRINE: Denies any polyuria or polydipsia. The rest of the 13-point review of systems is negative. Past Medical History Past Medical History: Atrial Fibrillation, Coronary Artery Disease (CAD), Heart Failure, Diabetes Mellitus, Hyperlipidemia, Hypertension, Myocardial Infarction ([place]), Prostate Disorder Additional Past Medical History / Comment(s): sores on arms, upper bridge,past uti,NTERMITTENT CLAUDICATION, PAD pt was admited to [facility] 07/2014 for CHF and A-fib Last Myocardial Infarction Date:: unknown History of Any Multi-Drug Resistant Organisms: None Reported Past Surgical History: Coronary Bypass/CABG, Heart Catheterization Additional Past Surgical History / Comment(s): quad VESSEL CABG 2001( LEHMAN TO LAD, MONTY TO RCA, SVG TO KATT AND OM-EF 45%), susanna cataracts, 08-26- ABD AORTIC AORTOGRAM,SUSANNA LOWER EXTREMITY RUNNOFF,BALLOON ANGIOPLASTY RT SFA,STENT TO SFA. Past Anesthesia/Blood Transfusion Reactions: No Reported Reaction Past Psychological History: No Psychological Hx Reported Smoking Status: Former smoker Past Alcohol Use History: Rare Additional Past Alcohol Use History / Comment(s): started smoking at age 21 smoked 2 ppd , quit 2001 Past Drug Use History: None Reported - Past Family History Mother Family Medical History: No Reported History Additional Family Medical History / Comment(s): PT POOR HISTORIAN ON PARENTS HX- ALL HE KNEW WAS SHE HAD TB WHEN SHE WAS YOUNGER Father Family Medical History: Dementia Additional Family Medical History / Comment(s): CARDAIC DISEASE Medications and Allergies Home Medications Medication Instructions Recorded Confirmed Type Aspirin 81 mg PO DAILY 08/17/15 05/31/20 History Insulin Aspart Protam & Aspart 10 unit SQ AC-TID 08/17/15 05/31/20 History [NovoLOG MIX 70-30 Flexpen] Nitroglycerin Sl Tabs [Nitrostat] 0.4 mg SUBLINGUAL Q5M PRN 08/17/15 05/31/20 History Spironolactone [Aldactone] 25 mg PO DAILY 08/17/15 05/31/20 History Amiodarone [Cordarone] 200 mg PO DAILY 03/28/18 05/31/20 History Cholecalciferol (Vitamin D3) 2,000 unit PO DAILY 03/28/18 05/31/20 History [Vitamin D3] Tamsulosin HCl [Flomax] 0.4 mg PO HS 03/28/18 05/31/20 History Acetaminophen [Tylenol] 1,000 mg PO DAILY PRN 05/31/20 05/31/20 History Apixaban [Eliquis] 5 mg PO BID 05/31/20 05/31/20 History Atorvastatin [Lipitor] 80 mg PO HS 05/31/20 05/31/20 History Clotrimazole/Betameth Cream 1 applic TOPICAL BID PRN 05/31/20 05/31/20 History [Lotrisone] Fluticasone Nasal [place] [Flonase 2 spr EA NOSTRIL DAILY PRN 05/31/20 05/31/20 History Nasal [place]] Melatonin 10 mg PO HS 05/31/20 05/31/20 History Metoprolol Tartrate 25 mg PO BID 05/31/20 05/31/20 History Nighttime Sleep Aid (Unknown 1 tab PO HS PRN 05/31/20 05/31/20 History Strength) Sacubitril/Valsartan [Entresto 24 1 tab PO BID 05/31/20 05/31/20 History mg-26 mg Tablet] Allergies Allergy/AdvReac Type Severity Reaction Status Date / Time No Known Allergies Allergy Verified 05/31/20 19:56 Physical Exam Vitals: Vital Signs Temp Pulse Pulse Pulse Resp BP BP 06/01/20 08:22 72 87 15 06/01/20 07:46 98.4 F 72 15 103/57 06/01/20 03:00 97.6 F 86 17 116/72 05/31/20 21:00 98.1 F 91 17 110/60 05/31/20 19:33 98.2 F 66 16 136/72 05/31/20 19:00 16 05/31/20 16:35 98.7 F 84 18 131/77 Pulse Ox 06/01/20 08:22 06/01/20 07:46 97 06/01/20 03:00 95 05/31/20 21:00 99 05/31/20 19:33 98 05/31/20 19:00 97 05/31/20 16:35 100 Intake and Output 05/31/20 06/01/20 06/01/20 22:59 06:59 14:59 Intake Total 400 300 200 Output Total 200 700 100 Balance 200 -400 100 Intake: Oral 400 300 200 Output: Urine 200 700 100 Other: Voiding Method Urinal Urinal Urinal # Voids 1 # Bowel Movements 1 Weight 82 kg PHYSICAL EXAMINATION: Patient's blood pressure is 103/57, saturating at 97% improvement, temperature 98.4, heart rate 72 GENERAL: Patient is very hard of hearing, not in any acute distress. HEENT: Pupils are round and equally reacting to light. EOMI. mild scleral icte chelsi. No conjunctival pallor. Normocephalic, atraumatic. No pharyngeal erythema. No thyromegaly. CARDIOVASCULAR: Irregularly irregular. No additional sounds. PULMONARY: Bilateral breath sounds are positive. No wheeze or crackles. ABDOMEN: Soft, nontender, nondistended, normoactive bowel sounds. No palpable organomegaly. MUSCULOSKELETAL: No joint swelling or deformity. EXTREMITIES: No cyanosis, clubbing, or pedal edema. Left lower extremity- there is wrapped in an Kirk bandage with a splint. I did not open the splint. Patient's left toes are pink with good capillary refill, warm to touch, he has decreased sensation in left toes. NEUROLOGICAL: Gross neurological examination did not reveal any focal deficits. SKIN: Actinic keratosis Results CBC & Chem 7: 06/01/20 03:43 06/01/20 12:42 Labs: Abnormal Lab Results - Last 24 Hours (Table) 05/31/20 05/31/20 05/31/20 Range/Units 18:27 18:27 21:17 RBC 3.45 L 3.29 L (4.30-5.90) m/uL Hgb 8.3 L 7.9 L (13.0-17.5) gm/dL Hct 28.4 L 27.3 L (39.0-53.0) % MCH 24.0 L 24.1 L (25.0-35.0) pg MCHC 29.2 L 29.1 L (31.0-37.0) g/dL RDW 18.7 H 18.7 H (11.5-15.5) % Plt Count 132 L 118 L (150-450) k/uL Lymphocytes # 0.9 L 0.8 L (1.0-4.8) k/uL Chloride 112 H (98-107) mmol/L Carbon Dioxide 20 L (22-30) mmol/L BUN 33 H (9-20) mg/dL Glucose 206 H (74-99) mg/dL POC Glucose (mg/dL) (75-99) mg/dL Total Protein 5.7 L (6.3-8.2) g/dL Albumin 3.3 L (3.5-5.0) g/dL 05/31/20 06/01/20 06/01/20 Range/Units 21:40 03:43 06:27 RBC 2.99 L (4.30-5.90) m/uL Hgb 7.3 L (13.0-17.5) gm/dL Hct 25.3 L (39.0-53.0) % MCH 24.3 L (25.0-35.0) pg MCHC 28.8 L (31.0-37.0) g/dL RDW 18.7 H (11.5-15.5) % Plt Count 135 L (150-450) k/uL Lymphocytes # 0.9 L (1.0-4.8) k/uL Chloride (98-107) mmol/L Carbon Dioxide (22-30) mmol/L BUN (9-20) mg/dL Glucose (74-99) mg/dL POC Glucose (mg/dL) 269 H 204 H (75-99) mg/dL Total Protein (6.3-8.2) g/dL Albumin (3.5-5.0) g/dL 06/01/20 Range/Units 11:32 RBC (4.30-5.90) m/uL Hgb (13.0-17.5) gm/dL Hct (39.0-53.0) % MCH (25.0-35.0) pg MCHC (31.0-37.0) g/dL RDW (11.5-15.5) % Plt Count (150-450) k/uL Lymphocytes # (1.0-4.8) k/uL Chloride (98-107) mmol/L Carbon Dioxide (22-30) mmol/L BUN (9-20) mg/dL Glucose (74-99) mg/dL POC Glucose (mg/dL) 281 H (75-99) mg/dL Total Protein (6.3-8.2) g/dL Albumin (3.5-5.0) g/dL Thrombosis Risk Factor Assmnt - Choose All That Apply Any of the Below Risk Factors Present?: Yes Each Factor Represents 1 point: Obesity (BMI >25) Other Risk Factors: Yes Each Risk Factor Represents 2 Points: Patient confined to bed Each Risk Factor Represents 3 Points: Age 75 years or older Other congenital or acquired thrombophilia - If yes, enter type in comment: No Thrombosis Risk Factor Assessment Total Risk Factor Score: 6 Thrombosis Risk Factor Assessment Level: High Risk Assessment and Plan Assessment: ASSESSMENT Acute Left ankle fracture Anemia- unknown baseline Thrombocytopenia- unknown baseline Atrial fibrillation persistent-rate controlled-on anticoagulation with apixaban Coronary artery disease Type 2 diabetes mellitus- poorly controlled Congestive heart failure- unknown ejection fraction Hypertension Hyperlipidemia Severe peripheral artery disease Chocolate neuropathy Gait instability Former nicotine dependence PLAN: Orthopedic consultation was obtained. Patient has anemia and thrombocytopenia, his baseline is unknown. Currently patient is in atrial fibrillation but rate controlled. He is on anticoagulation with Apixaban, curr ently on hold in anticipation of possible surgery to the ankle. Will need Cardiology clearance if planning for surgery. Will check complaints of metabolic panel. Patient has been restarted on his home medications. The treatment plan was discussed in detail with the patient's at bedside. Fur ther recommendations to follow depending on the progress of the patient.
[2020-06-01 13:26] LABS: Albumin 3.3 g/dL (3.5-5.0); Calcium 8.7 mg/dL (8.4-10.2); Potassium 5.9 mmol/L (3.5-5.1); Total Bilirubin 0.4 mg/dL (0.2-1.3); Total Protein 5.8 g/dL (6.3-8.2)
[2020-06-01 16:50] LABS: Glucose,Whole Blood 342 mg/dL (75-99)
--- NOTE | 2020-06-01 16:56 | P.CNOR ---
History of Present Illness - HPI Consult date: 06/01/20 History of present illness: This is a 79 year-old male with a known history of diabetes mellitus with peripheral neuropathy with charcot foot. Patient is seen and evaluated at bedside with Dr. David Angel. Patient was transferred from [facility] for evaluation of the left ankle. Patient states that he tripped on 05/29/2020 and developed pain in the left foot. Patient states that he has been bearing weight on the left lower extremity since the injury, but this is painful. Patient states that he has decreased sensation in the left foot chronically from diabetes. Patient's past medical history significant for atrial fibrillation, coronary artery disease, heart failure, diabetes mellitus, hyperlipidemia, hypertension and prostate disorder. Patient states that he has special footwear that he normally wears due to his peripheral neuropathy and Charcot foot. Patient denies any fever/chills, abdominal pain, shortness of breath or chest pain. Review of Systems See HPI. Past Medical History Past Medical History: Atrial Fibrillation, Coronary Artery Disease (CAD), Heart Failure, Diabetes Mellitus, Hyperlipidemia, Hypertension, Myocardial Infarction (AL), Prostate Disorder Additional Past Medical History / Comment(s): sores on arms, upper bridge,past uti,NTERMITTENT CLAUDICATION, PAD pt was admited to [facility] 07/2014 for CHF and A-fib Last Myocardial Infarction Date:: unknown History of Any Multi-Drug Resistant Organisms: None Reported Past Surgical History: Coronary Bypass/CABG, Heart Catheterization Additional Past Surgical History / Comment(s): quad VESSEL CABG 2001( LEHMAN TO LA D, MONTY TO RCA, SVG TO KATT AND OM-EF 45%), susanna cataracts, 08-26-15 ABD AORTIC AORTOGRAM,SUSANNA LOWER EXTREMITY RUNNOFF,BALLOON ANGIOPLASTY RT SFA,STENT TO SFA. Past Anesthesia/Blood Transfusion Reactions: No Reported Reaction Past Psychological History: No Psychological Hx Reported Smoking Status: Former smoker Past Alcohol Use History: Rare Additional Past Alcohol Use History / Comment(s): started smoking at age 21 smoked 2 ppd , quit 2001 Past Drug Use History: None Reported - Past Family History Mother Family Medical History: No Reported History Additional Family Medical History / Comment(s): PT POOR HISTORIAN ON PARENTS HX- ALL HE KNEW WAS SHE HAD TB WHEN SHE WAS YOUNGER Father Family Medical History: Dementia Additional Family Medical History / Comment(s): CARDAIC DISEASE Medications and Allergies Home Medications Medication Instructions Recorded Confirmed Type Aspirin 81 mg PO DAILY 08/17/15 05/31/20 History Insulin Aspart Protam & Aspart 10 unit SQ AC-TID 08/17/15 05/31/20 History [NovoLOG MIX 70-30 Flexpen] Nitroglycerin Sl Tabs [Nitrostat] 0.4 mg SUBLINGUAL Q5M PRN 08/17/15 05/31/20 History Spironolactone [Aldactone] 25 mg PO DAILY 08/17/15 05/31/20 History Amiodarone [Cordarone] 200 mg PO DAILY 03/28/18 05/31/20 History Cholecalciferol (Vitamin D3) 2,000 unit PO DAILY 03/28/18 05/31/20 History [Vitamin D3] Tamsulosin HCl [Flomax] 0.4 mg PO HS 03/28/18 05/31/20 History Acetaminophen [Tylenol] 1,000 mg PO DAILY PRN 05/31/20 05/31/20 History Apixaban [Eliquis] 5 mg PO BID 05/31/20 05/31/20 History Atorvastatin [Lipitor] 80 mg PO HS 05/31/20 05/31/20 History Clotrimazole/Betameth Cream 1 applic TOPICAL BID PRN 05/31/20 05/31/20 History [Lotrisone] Fluticasone Nasal [place] [Flonase 2 spr EA NOSTRIL DAILY PRN 05/31/20 05/31/20 History Nasal [place]] Melatonin 10 mg PO HS 05/31/20 05/31/20 History Metoprolol Tartrate 25 mg PO BID 05/31/20 05/31/20 History Nighttime Sleep Aid (Unknown 1 tab PO HS PRN 05/31/20 05/31/20 History Strength) Sacubitril/Valsartan [Entresto 24 1 tab PO BID 05/31/20 05/31/20 History mg-26 mg Tablet] Allergies Allergy/AdvReac Type Severity Reaction Status Date / Time No Known Allergies Allergy Verified 05/31/20 19:56 Physical Examination On exam there is obvious deformity of the left ankle. Skin is intact, but there is ecchymosis medially. There is some tenderness to palpation over the lateral aspect of the left ankle. Patient also has decreased sensation with palpation of the left foot. Sensation intact over the lateral aspect of the left foot. The left lower extremity is warm and well perfused. Results X-rays of the left ankle dated 05/31/2020 showed deformity of the ankle with subacute fracture of the lateral malleolus and lateral partial dislocation of the talus. There is probably old posterior malleolus mildly displaced chip fracture. There is also some chronic dislocations at the tarsometatarsal joints. This could relate to neuropathic arthropathy. Left ankle does not appear changed compared to [place] exam today. - Labs Labs: Abnormal Lab Results - Last 24 Hours (Table) 05/31/20 05/31/20 05/31/20 Range/Units 18:27 18:27 21:17 RBC 3.45 L 3.29 L (4.30-5.90) m/uL Hgb 8.3 L 7.9 L (13.0-17.5) gm/dL Hct 28.4 L 27.3 L (39.0-53.0) % MCH 24.0 L 24.1 L (25.0-35.0) pg MCHC 29.2 L 29.1 L (31.0-37.0) g/dL RDW 18.7 H 18.7 H (11.5-15.5) % Plt Count 132 L 118 L (150-450) k/uL Lymphocytes # 0.9 L 0.8 L (1.0-4.8) k/uL Sodium (137-145) mmol/L Potassium (3.5-5.1) mmol/L Chloride 112 H (98-107) mmol/L Carbon Dioxide 20 L (22-30) mmol/L BUN 33 H (9-20) mg/dL Creatinine (0.66-1.25) mg/dL Glucose 206 H (74-99) mg/dL POC Glucose (mg/dL) (75-99) mg/dL AST (17-59) U/L Total Protein 5.7 L (6.3-8.2) g/dL Albumin 3.3 L (3.5-5.0) g/dL 05/31/20 06/01/20 06/01/20 Range/Units 21:40 03:43 06:27 RBC 2.99 L (4.30-5.90) m/uL Hgb 7.3 L (13.0-17.5) gm/dL Hct 25.3 L (39.0-53.0) % MCH 24.3 L (25.0-35.0) pg MCHC 28.8 L (31.0-37.0) g/dL RDW 18.7 H (11.5-15.5) % Plt Count 135 L (150-450) k/uL Lymphocytes # 0.9 L (1.0-4.8) k/uL Sodium (137-145) mmol/L Potassium (3.5-5.1) mmol/L Chloride (98-107) mmol/L Carbon Dioxide (22-30) mmol/L BUN (9-20) mg/dL Creatinine (0.66-1.25) mg/dL Glucose (74-99) mg/dL POC Glucose (mg/dL) 269 H 204 H (75-99) mg/dL AST (17-59) U/L Total Protein (6.3-8.2) g/dL Albumin (3.5-5.0) g/dL 06/01/20 06/01/20 Range/Units 11:32 12:42 RBC (4.30-5.90) m/uL Hgb (13.0-17.5) gm/dL Hct (39.0-53.0) % MCH (25.0-35.0) pg MCHC (31.0-37.0) g/dL RDW (11.5-15.5) % Plt Count (150-450) k/uL Lymphocytes # (1.0-4.8) k/uL Sodium 136 L (137-145) mmol/L Potassium 5.9 H (3.5-5.1) mmol/L Chloride 109 H (98-107) mmol/L Carbon Dioxide 20 L (22-30) mmol/L BUN 33 H (9-20) mg/dL Creatinine 1.29 H (0.66-1.25) mg/dL Glucose 268 H (74-99) mg/dL POC Glucose (mg/dL) 281 H (75-99) mg/dL AST 16 L (17-59) U/L Total Protein 5.8 L (6.3-8.2) g/dL Albumin 3.3 L (3.5-5.0) g/dL H & H 05/31/20 05/31/20 06/01/20 Range/Units 18:27 21:17 03:43 Hgb 8.3 L 7.9 L 7.3 L (13.0-17.5) gm/dL Hct 28.4 L 27.3 L 25.3 L (39.0-53.0) % Result Diagrams: 06/01/20 03:43 06/01/20 12:42 Assessment and Plan (1) Diabetes mellitus Current Visit: Yes Status: Acute Code(s): E11.9 - TYPE 2 DIABETES MELLITUS WITHOUT COMPLICATIONS SNOMED Code(s): 96813880 (2) Fall Current Visit: Yes Status: Acute Code(s): W19.XXXA - UNSPECIFIED FALL, INITIAL ENCOUNTER SNOMED Code(s): 9616208 (3) Fracture of distal fibula Current Visit: Yes Status: Acute Code(s): S82.839A - OTH FRACTURE OF UPPER A ND LOWER END OF UNSP FIBULA, INIT SNOMED Code(s): 591285387 (4) Charcot foot due to diabetes mellitus Current Visit: Yes Status: Acute Code(s): E11.610 - TYPE 2 DIABETES MELLITUS W DIABETIC NEUROPATHIC ARTHROPATHY SNOMED Code(s): 374809296 Plan: 1. NPO after midnight. 2. Hold Lovenox. 3. Awaiting cardiology clearance. 4. Planning for ORIF of the left ankle on 06/02/2020 pending medical clearance and patient consent.
[2020-06-01] MEDS: SODIUM CHLORIDE 0.9% 1,000 ML IV SCH (17:22)
--- NOTE | 2020-06-01 17:26 | CT ---
EXAMINATION TYPE: CT ankle LT wo con DATE OF EXAM: 06/01/2020 HISTORY: Fall. Left ankle pain. CT DLP: 319.3 mGycm. Automated Exposure Control for Dose Reduction was Utilized. TECHNIQUE: CT scan of the left ankle was performed COMPARISON: Left ankle radiograph 05/31/2020 FINDINGS: There is a displaced, comminuted, extra-articular fracture of the distal fibula metadiaphysis with sh ortening and mild anteromedial angulation of the fracture apex. There is comminuted fracture of the m edial malleolus with severe displacement. Displaced fracture fragments of the posterior talus. There is also tiny fracture fragment of the anterior talus. There is dislocation of the tibia anterior and medially relative to the talar dome. There is fracture fragmentation of the medial talus with mild di splacement. There is severe soft tissue swelling and subcutaneous edema of the visualized lower leg and ankle. Degenerative changes of the midfoot articulations. Tarsometatarsal dislocations appear more chronic. Decreased osseous mineralization. IMPRESSION: Comminuted displaced fracture deformities of the distal fibula, and tibia involving the medial malleo usha, posterior malleolus, and tiny fragment of the anterior tibia. There is anterior and medial dislo cation of the tibia relative to the talar dome. Severe associated soft tissue swelling.
--- NOTE | 2020-06-01 17:45 | ECHOF ---
Referral Reason:clearance for surgery MEASUREMENTS -------- HEIGHT: 172.7 cm WEIGHT: 81.6 kg BP: RVIDd: 3.6 cm (< 3.3) IVSd: 1.1 cm (0.6 - 1.1) LVIDd: 5.2 cm (3.9 - 5.3) LVPWd: 1.3 cm (0.6 - 1.1) IVSs: 1.3 cm LVIDs: 5.1 cm LVPWs: 1.4 cm LAESV Index (A-L): 58.71 ml/m Ao Diam: 3.6 cm (2.0 - 3.7) AV Cusp: 2.2 cm (1.5 - 2.6) LA Diam: 4.4 cm (2.7 - 3.8) MV EXCURSION: 18.378 mm (> 18.000) MV EF SLOPE: 107 mm/s (70 - 150) EPSS: 1.3 cm MV E Leonard: 1.30 m/s MV DecT: 130 ms MV A Leonard: 0.37 m/s MV E/A Ratio: 3.48 RAP: 15.00 mmHg RVSP: 31.94 mmHg FINDINGS -------- Paced rhythm. This was a technically good study. The left ventricular size is normal. Left ventricular wall thickness is normal. There is severe g lobal hypokinesis of LV . Overall left ventricular systolic function is severely impaired with, an EF between 25 - 30 %. Increased LAP. Grade 3 Diastolic Dysfunction. The right ventricle is mildly enlarged. LA is severely dilated >40 ml/m2 The right atrial size is normal. The aortic valve is trileaflet and appears structurally normal. The mitral valve is normal. Mild mitral regurgitation is present. The tricuspid valve appears structurally normal. Mild tricuspid regurgitation present. Right vent ricular systolic pressure is normal at < 35 mmHg. There is no pulmonic regurgitation present. The aortic root size is normal. The inferior vena cava is mildly dilated. There is no pericardial effusion. CONCLUSIONS -------- 1. Paced rhythm. 2. This was a technically good study. 3. The left ventricular size is normal. 4. Left ventricular wall thickness is normal. 5. There is severe global hypokinesis of LV . 6. Overall left ventricular systolic function is severely impaired with, an EF between 25 - 30 %. 7. Increased LAP. Grade 3 Diastolic Dysfunction. 8. The right ventricle is mildly enlarged. 9. LA is severely dilated >40 ml/m2 10. The right atrial size is normal. 11. The aortic valve is trileaflet and appears structurally normal. 12. Mild mitral regurgitation is present. 13. Mild tricuspid regurgitation present. 14. The inferior vena cava is mildly dilated. PHOTOLITH OPERATOR: Dennise Carroll RDCS
[2020-06-01] MEDS ORDERED: SODIUM POLYSTYRENE SULFONATE 15 GM/60 ML BOTTLE PO STA (18:08)
--- NOTE | 2020-06-01 18:48 | CONS ---
CONSULTATION CHIEF COMPLAINT: Preop cardiac evaluation. Luan is a 79-year-old gentleman with history of coronary artery disease status post CABG, ischemic cardiomyopathy status post AICD, chronic systolic heart failure, and permanent atrial fibrillation, who presented to hospital with left ankle fracture. Cardiology has been consulted for preoperative cardiac evaluation. The patient is currently free of chest pain, difficulty in breathing, leg edema, PND or orthopnea. An echocardiogram on him today shows severe LV systolic dysfunction. An EKG shows paced rhythm with nonspecific ST-T wave changes. LABS: Show that the hemoglobin is low at 7.3, platelet count is 135. Potassium is elevated at 5.9, BUN and creatinine are elevated at 33 and 1.29. The patient is at increased risk for perioperative cardiac events because of complex and multiple underlying problems including renal insufficiency, cardiomyopathy, congestive heart failure. However, I do not see any absolute contraindications for proposed surgery. Please continue him on the beta blockers that he is on. He has elevated potassium and this needs to be addressed prior to surgery. I am going to have primary look at that and address it expeditiously. PAST MEDICAL HISTORY: Significant for ischemic cardiomyopathy, coronary artery disease, status post CABG, status post AICD and atrial fibrillation. MEDICATIONS: Medications at home include aspirin, Lipitor, Pepcid, insulin, Lopressor, Entresto. The patient was on spironolactone, which I am going to stop. Apixaban. ALLERGIES: No known drug allergies. FAMILY HISTORY: Negative for premature coronary artery disease. SOCIAL HISTORY: Negative for current smoking, EtOH abuse, or drug abuse. REVIEW OF SYSTEMS: HEENT is unremarkable. CARDIAC: As described above. RESPIRATORY: As described above. GI: Negative. GENITOURINARY: Negative. ALLERGY/IMMUNOLOGY: Negative. SKIN: Negative. MUSCULOSKELETAL: Significant for arthritis. PSYCHOSOCIAL: Negative. ENDOCRINE: Negative. CONSTITUTIONAL Negative. ONCOLOGICAL: Negative. LANDING SIGNAL OFFICER: Negative. The rest of the system review is not relevant. PHYSICAL EXAM: Patient is comfortable at rest. Vital signs are stable. There is no jugular venous distention. Carotid upstroke is diminished. There is no bruit. Chest exam reveals good air entry bilaterally. Heart exam reveals first and second heart sounds. Systolic murmur at the apex. Abdomen is soft. Exam of extremities reveals mild edema and diminished pulses. LABORATORY DATA: Labs show that the potassium is high, BUN is elevated, creatinine is 1.2. ASSESSMENT: 1. Preop cardiac evaluation. 2. Ischemic cardiomyopathy, severe left ventricular dysfunction. 3. Status post automatic implantable cardioverter defibrillator. 4. Coronary artery disease, status post coronary artery bypass graft. 5. Peripheral arterial disease. 6. Hyperkalemia. PLAN: From cardiac standpoint, I do not see any contraindications for proposed surgery. Please make sure that his potassium is below 5 prior to surgery. MMODL / IJN: [id number] /
[2020-06-01 20:32] LABS: Glucose,Whole Blood 346 mg/dL (75-99)
[2020-06-01] MEDS: ATORVASTATIN 80 MG TAB PO SCH (21:24)
[2020-06-01] MEDS: TAMSULOSIN 0.4 MG CAP.ER.24H PO SCH (21:24)
[2020-06-01] MEDS: MELATONIN 5 MG TABLET PO PRN (21:24)
[2020-06-02 01:17] LABS: Albumin 2.8 g/dL (3.5-5.0); Calcium 8.3 mg/dL (8.4-10.2); Potassium 5.6 mmol/L (3.5-5.1); Total Bilirubin 0.3 mg/dL (0.2-1.3); Total Protein 5.1 g/dL (6.3-8.2)
[2020-06-02] MEDS ORDERED: INSULIN REGULAR 100 UNIT/ML VIAL IV ONE ×2 (02:27→07:40)
[2020-06-02] MEDS ORDERED: DEXTROSE 50% SYRINGE 50 ML IVP STA ×2 (02:28→07:41)
[2020-06-02] MEDS: HYDROmorphone 0.5 MG/0.5 ML SYRINGE IVP PRN (05:45)
[2020-06-02 06:28] LABS: Glucose,Whole Blood 227 mg/dL (75-99)
[2020-06-02] MEDS ORDERED: SODIUM POLYSTYRENE SULFONATE 15 GM/60 ML BOTTLE PO STA (08:05)
[2020-06-02] MEDS: METOPROLOL TARTRATE 25 MG TAB PO SCH ×2 (08:08→20:56)
[2020-06-02] MEDS: ACETAMINOPHEN TAB 500 MG TAB PO SCH ×2 (08:08→16:47)
[2020-06-02] MEDS: ASPIRIN 81 MG PO SCH (08:08)
[2020-06-02] MEDS: FAMOTIDINE 20 MG TAB PO SCH (08:08)
[2020-06-02] MEDS: AMIODARONE 200 MG TAB PO SCH (08:08)
[2020-06-02] MEDS: INSULIN ASPART (NovoLOG) 100 UNIT/ML VIAL SQ SCH ×4 (08:13→20:55)
[2020-06-02] MEDS ORDERED: BACITRACIN OINT 1 EACH PACKET TOPICAL ONE (08:27)
[2020-06-02] MEDS: CHOLECALCIFEROL 1,000 UNIT TAB PO SCH (11:20)
[2020-06-02 11:38] LABS: Glucose,Whole Blood 251 mg/dL (75-99)
--- NOTE | 2020-06-02 12:11 | P.PN ---
Subjective Progress Note Date: 06/02/20 Principal diagnosis: Left ankle fracture Mr. Powell is a 79-year-old male with a past medical history of coronary artery disease, congestive heart failure, atrial fibrillation, diabetes mellitus, chocolate neuropathy, hypertension, hyperlipidemia, prostate disorder, peripheral arterial disease coming into the hospital with a chief complaint of left leg pain. Patient is very hard of hearing. Most of the history is given by the was at bedside today. His mentions that on Monday he was working in the garage where he slipped and had a fall and since then he started to have pain in his left foot. At baseline patient walks with a walker, as he has chocolate neuropathy and decreased sensation in both of his feet. Patient stated home for a couple of days until yesterday morning when he went to urgent care that [facility] had x-rays done there and his foot was wrapped and sent to [facility] [place] for further evaluation. In the emergency patient had ankle x-ray done showing fracture of the lateral malleolus and lateral partial dislocation of the talus. There is probably old posterior malleolus mildly displaced chip fracture. 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 So orthopedic consultation was obtained and patient is admitted for further evaluation. On 06/02/2020- patient is lying in bed comfortably appears to be in no acute distress. Cardiology Dr. Gonzalez has evaluated the patient yesterday and cleared him for surgery. He will be taken to the OR by orthopedics today. Currently his potassium is at 5.3, he just received a dose of Kayexalate, trying to get his potassium below 5 before he goes for the surgery. Patient's vitals have been stable. No acute events reported by nursing staff. Patient denies having any chest pain, palpitations, cough or difficulty breathing. No abnormal pain nausea vomiting or diarrhea. Active Medications Acetaminophen (Tylenol Tab) 1,000 mg PO Q8HR [facility] Last Admin: 06/02/20 08:08 Dose: 1,000 mg Documented by: Amiodarone HCl (Cordarone) 200 mg PO DAILY [facility] Last Admin: 06/02/20 08:08 Dose: 200 mg Documented by: Aspirin (Aspirin) 81 mg PO DAILY [facility] Last Admin: 06/02/20 08:08 Dose: Not Given Documented by: Atorvastatin Calcium (Lipitor) 80 mg PO HS [facility] Last Admin: 06/01/20 21:24 Dose: 80 mg Documented by: Cholecalciferol (Vitamin D3 (25 Mcg = 1000 Iu)) 2,000 unit PO DAILY@1200 [facility] Last Admin: 06/02/20 11:20 Dose: Not Given Documented by: Famotidine (Pepcid) 20 mg PO DAILY [facility] Last Admin: 06/02/20 08:08 Dose: 20 mg Documented by: Fluticasone Propionate (Flonase Nasal [place]) 2 spray EA NOSTRIL DAILY PRN PRN Reason: seasonal allergies Hydromorphone HCl (Dilaudid) 0.5 mg IVP Q4HR PRN PRN Reason: SEVERE Pain Last Admin: 06/02/20 05:45 Dose: 0.5 mg Documented by: Sodium Chloride (Saline 0.9%) 1,000 mls @ 20 mls/hr IV .Q24H [facility] Last Admin: 06/01/20 17:22 Dose: 20 mls/hr Documented by: Insulin Aspart (Novolog) 0 unit SQ [facility]; Protocol Last Admin: 06/02/20 11:40 Dose: Not Given Documented by: Melatonin (Melatonin) 5 mg PO HS PRN PRN Reason: Insomnia Last Admin: 06/01/20 21:24 Dose: 5 mg Documented by: Metoprolol Tartrate (Lopressor) 25 mg PO BID [facility] Last Admin: 06/02/20 08:08 Dose: 25 mg Documented by: Morphine Sulfate (Morphine Sulfate (Inj)) 4 mg IVP Q4HR PRN PRN Reason: MODERATE Pain Last Admin: 05/31/20 16:55 Dose: 4 mg Documented by: Naloxone HCl (Narcan) 0.2 mg IV Q2M PRN PRN Reason: Opioid Reversal Tamsulosin HCl (Flomax) 0.4 mg PO [facility] Last Admin: 06/01/20 21:24 Dose: 0.4 mg Documented by: Objective - Vital Signs Vital signs: Vital Signs Temp 97.8 F 06/02/20 08:28 Pulse 93 06/02/20 08:28 Resp 16 06/02/20 08:28 BP 123/66 06/02/20 08:28 Pulse Ox 97 06/02/20 08:28 Intake & Output 06/01/20 06/02/20 06/02/20 18:59 06:59 18:59 Intake Total 200 Output Total 800 375 25 Balance -600 -375 -25 Intake: Oral 200 Output: Urine 800 375 25 Other: Voiding Method Urinal Urinal # Voids 2 # Bowel Movements 1 - Exam HYSICAL EXAMINATION: GENERAL: Patient is very hard of hearing, not in any acute distress. HEENT: Pupils are round and equally reacting to light. EOMI. mild scleral icterus. No conjunctival pallor. Normocephalic, atraumatic. No pharyngeal erythema. No thyromegaly. CARDIOVASCULAR: Irregularly irregular. No additional sounds. PULMONARY: Bilateral breath sounds are positive. No wheeze or crackles. ABDOMEN: Soft, nontender, nondistended, normoactive bowel sounds. No palpable organomegaly. MUSCULOSKELETAL: No joint swelling or deformity. EXTREMITIES: No cyanosis, clubbing, or pedal edema. Left lower extremity- there is wrapped in an Kirk bandage with a splint. Patient's left toes are pink with good capillary refill, warm to touch, he has decreased sensation in left toes. NEUROLOGICAL: Gross neurological examination did not reveal any focal deficits. - Labs CBC & Chem 7: 06/01/20 03:43 06/02/20 12:55 Labs: Abnormal Lab Results - Last 24 Hours (Table) 06/01/20 06/01/20 06/01/20 Range/Units 12:42 16:49 20:31 Sodium 136 L (137-145) mmol/L Potassium 5.9 H (3.5-5.1) mmol/L Chloride 109 H (98-107) mmol/L Carbon Dioxide 20 L (22-30) mmol/L BUN 33 H (9-20) mg/dL Creatinine 1.29 H (0.66-1.25) mg/dL Glucose 268 H (74-99) mg/dL POC Glucose (mg/dL) 342 H 346 H (75-99) mg/dL Calcium (8.4-10.2) mg/dL AST 16 L (17-59) U/L Total Protein 5.8 L (6.3-8.2) g/dL Albumin 3.3 L (3.5-5.0) g/dL 06/02/20 06/02/20 06/02/20 Range/Units 00:46 05:24 06:26 Sodium 134 L (137-145) mmol/L Potassium 5.6 H 5.3 H (3.5-5.1) mmol/L Chloride 110 H (98-107) mmol/L Carbon Dioxide 18 L (22-30) mmol/L BUN 34 H (9-20) mg/dL Creatinine (0.66-1.25) mg/dL Glucose 239 H (74-99) mg/dL POC Glucose (mg/dL) 227 H (75-99) mg/dL Calcium 8.3 L (8.4-10.2) mg/dL AST (17-59) U/L Total Protein 5.1 L (6.3-8.2) g/dL Albumin 2.8 L (3.5-5.0) g/dL 06/02/20 Range/Units 11:36 Sodium (137-145) mmol/L Potassium (3.5-5.1) mmol/L Chloride (98-107) mmol/L Carbon Dioxide (22-30) mmol/L BUN (9-20) mg/dL Creatinine (0.66-1.25) mg/dL Glucose (74-99) mg/dL POC Glucose (mg/dL) 251 H (75-99) mg/dL Calcium (8.4-10.2) mg/dL AST (17-59) U/L Total Protein (6.3-8.2) g/dL Albumin (3.5-5.0) g/dL Assessment and Plan Assessment: ASSESSMENT Acute Left ankle fracture Anemia- unknown baseline Thrombocytopenia- unknown baseline Atrial fibrillation persistent-rate controlled-on anticoagulation with apixaban Coronary artery disease Type 2 diabetes mellitus- poorly controlled Congestive heart failure- unknown ejection fraction Hypertension Hyperlipidemia Severe peripheral artery disease Chocolate neuropathy Gait instability Former nicotine dependence PLAN: Patient was cleared by cardiology for surgery today,Orthopedic planning for repair of the left ankle fracture. Patient received a dose of Kayexalate, waiting for a repeat potassium to be below 5 to surgery. Patient has anemia and thrombocytopenia, his baseline is unknown. Currently patient is in atrial fibrillation but rate controlled. He is on anticoagulation with Apixaban, currently on hold in anticipation of surgery . Further recommendations to follow depending on the progress of the patient.
[2020-06-02] MEDS ORDERED: ONDANSETRON 4 MG/2 ML VIAL IVP PRN (12:52)
[2020-06-02] MEDS ORDERED: HYDROmorphone 0.5 MG/0.5 ML SYRINGE IVP PRN ×2 (12:52)
[2020-06-02] MEDS ORDERED: HYDROcodone/APAP 5-325MG 1 EACH TAB PO PRN ×2 (12:52)
[2020-06-02] MEDS ORDERED: LACTATED RINGERS 1,000 ML IV ONE (15:10)
[2020-06-02 15:15] LABS: Glucose,Whole Blood 249 mg/dL (75-99)
[2020-06-02] MEDS: SODIUM CHLORIDE 0.9% 1,000 ML IV SCH (16:30)
[2020-06-02 16:35] LABS: Glucose,Whole Blood 246 mg/dL (75-99)
[2020-06-02 20:35] LABS: Glucose,Whole Blood 351 mg/dL (75-99)
[2020-06-02] MEDS: ATORVASTATIN 80 MG TAB PO SCH (20:55)
[2020-06-02] MEDS: TAMSULOSIN 0.4 MG CAP.ER.24H PO SCH (20:55)
[2020-06-03] MEDS: ACETAMINOPHEN TAB 500 MG TAB PO SCH ×4 (00:23→23:15)
[2020-06-03 06:08] LABS: Anisocytosis Slight; Basophils # (A) 0.1 k/uL (0-0.2); Basophils % (A) 1 %; Eosinophils # (A) 0.2 k/uL (0-0.7); Eosinophils % (A) 3 %; HCT 27.7 % (39.0-53.0); HGB 8.1 gm/dL (13.0-17.5); Hypochromasia Marked; Lymphocytes # (A) 1.1 k/uL (1.0-4.8); Lymphocytes % (A) 21 %; MCH 24.4 pg (25.0-35.0); MCHC 29.3 g/dL (31.0-37.0); MCV 83.4 fL (80.0-100.0); Mean Platelet Volume 9.4; Monocytes # (A) 0.2 k/uL (0-1.0); Monocytes % (A) 4 %; Neutrophils # (A) 3.8 k/uL (1.3-7.7); Neutrophils % (A) 71 %; Platelet Count 147 k/uL (150-450); RBC 3.32 m/uL (4.30-5.90); RDW 18.1 % (11.5-15.5); WBC 5.4 k/uL (3.8-10.6)
[2020-06-03 06:19] LABS: Calcium 8.3 mg/dL (8.4-10.2); Potassium 4.7 mmol/L (3.5-5.1); Total Bilirubin 0.5 mg/dL (0.2-1.3); Total Protein 5.4 g/dL (6.3-8.2)
[2020-06-03 06:38] LABS: Glucose,Whole Blood 278 mg/dL (75-99)
[2020-06-03] MEDS: ASPIRIN 81 MG PO SCH (07:31)
[2020-06-03] MEDS: CHOLECALCIFEROL 1,000 UNIT TAB PO SCH (07:31)
[2020-06-03] MEDS: FAMOTIDINE 20 MG TAB PO SCH (07:31)
[2020-06-03] MEDS: AMIODARONE 200 MG TAB PO SCH (07:31)
[2020-06-03] MEDS: METOPROLOL TARTRATE 25 MG TAB PO SCH ×2 (07:31→20:30)
[2020-06-03] MEDS: INSULIN ASPART (NovoLOG) 100 UNIT/ML VIAL SQ SCH ×4 (07:32→20:30)
[2020-06-03] MEDS: SODIUM CHLORIDE 0.9% 1,000 ML IV SCH ×2 (07:34→20:31)
[2020-06-03] MEDS ORDERED: APIXABAN 5 MG TAB PO SCH (09:00)
--- NOTE | 2020-06-03 09:39 | P.PN ---
Subjective Progress Note Date: 06/03/20 This is a 79-year-old male who is admitted for left ankle fracture. Patient is seen and evaluated at bedside today. Patient's surgery was postponed until 06/04/2020 due to anesthesia concerns. Patient's Eliquis is currently being held. Patient denies any new complaints today. Objective - Vital Signs Vital signs: Vital Signs Temp 97.4 F L 06/03/20 03:00 Pulse 86 06/03/20 03:00 Resp 18 06/03/20 03:00 BP 125/75 06/03/20 03:00 Pulse Ox 100 06/03/20 03:00 Intake & Output 06/02/20 06/03/20 06/03/20 18:59 06:59 18:59 Intake Total 620 Output Total 375 Balance 245 Intake: IV 100 Oral 520 Output: Urine 375 Other: Voiding Method Urinal # Voids 300 - Exam On exam patient is sitting up comfortably in bed in no acute distress. Patient's splint is clean, dry and intact. The left lower extremity is warm and well perfused. - Labs CBC & Chem 7: 06/03/20 05:43 06/03/20 05:43 Labs: Abnormal Lab Results - Last 24 Hours (Table) 06/02/20 06/02/20 06/02/20 Range/Units 11:36 12:55 15:13 RBC (4.30-5.90) m/uL Hgb (13.0-17.5) gm/dL Hct (39.0-53.0) % MCH (25.0-35.0) pg MCHC (31.0-37.0) g/dL RDW (11.5-15.5) % Plt Count (150-450) k/uL Potassium 5.2 H (3.5-5.1) mmol/L Chloride (98-107) mmol/L BUN (9-20) mg/dL Creatinine (0.66-1.25) mg/dL Glucose (74-99) mg/dL POC Glucose (mg/dL) 251 H 249 H (75-99) mg/dL Calcium (8.4-10.2) mg/dL Alkaline Phosphatase (38-126) U/L Total Protein (6.3-8.2) g/dL Albumin (3.5-5.0) g/dL 06/02/20 06/02/20 06/03/20 Range/Units 16:34 20:33 05:43 RBC (4.30-5.90) m/uL Hgb (13.0-17.5) gm/dL Hct (39.0-53.0) % MCH (25.0-35.0) pg MCHC (31.0-37.0) g/dL RDW (11.5-15.5) % Plt Count (150-450) k/uL Potassium (3.5-5.1) mmol/L Chloride 109 H (98-107) mmol/L BUN 28 H (9-20) mg/dL Creatinine 1.32 H (0.66-1.25) mg/dL Glucose 225 H (74-99) mg/dL POC Glucose (mg/dL) 246 H 351 H (75-99) mg/dL Calcium 8.3 L (8.4-10.2) mg/dL Alkaline Phosphatase 134 H (38-126) U/L Total Protein 5.4 L (6.3-8.2) g/dL Albumin 3.0 L (3.5-5.0) g/dL 06/03/20 06/03/20 Range/Units 05:43 06:37 RBC 3.32 L (4.30-5.90) m/uL Hgb 8.1 L (13.0-17.5) gm/dL Hct 27.7 L (39.0-53.0) % MCH 24.4 L (25.0-35.0) pg MCHC 29.3 L (31.0-37.0) g/dL RDW 18.1 H (11.5-15.5) % Plt Count 147 L (150-450) k/uL Potassium (3.5-5.1) mmol/L Chloride (98-107) mmol/L BUN (9-20) mg/dL Creatinine (0.66-1.25) mg/dL Glucose (74-99) mg/dL POC Glucose (mg/dL) 278 H (75-99) mg/dL Calcium (8.4-10.2) mg/dL Alkaline Phosphatase (38-126) U/L Total Protein (6.3-8.2) g/dL Albumin (3.5-5.0) g/dL Assessment and Plan (1) Diabetes mellitus Current Visit: Yes Status: Acute Code(s): E11.9 - TYPE 2 DIABETES MELLITUS WITHOUT COMPLICATIONS SNOMED Code(s): 10837808 (2) Fall Current Visit: Yes Status: Acute Code(s): W19.XXXA - UNSPECIFIED FALL, INITIAL ENCOUNTER SNOMED Code(s): 5301274 (3) Fracture of distal fibula Current Visit: Yes Status: Acute Code(s): S82.839A - OTH FRACTURE OF UPPER AND LOWER END OF UNSP FIBULA, INIT SNOMED Code(s): 095306852 (4) Charcot foot due to diabetes mellitus Current Visit: Yes Status: Acute Code(s): E11.610 - TYPE 2 DIABETES MELLITUS W DIABETIC NEUROPATHIC ARTHROPATHY SNOMED Code(s): 407297271 Plan: 1. Strictly nonweightbearing to the left lower extremity. Keep splint clean, dry and intact. 2. Hold Eliquis. 3. NPO after midnight. 4. ORIF of left ankle planned for 06/04/2020.
--- NOTE | 2020-06-03 11:30 | P.PN ---
Subjective This is a pleasant 79-year-old male past medical history significant for coronary artery disease status post bypass grafting, ischemic cardiomyopathy status post AICD, chronic systolic heart failure and chronic persistent atrial fibrillation. He is a patient of Dr. Lugo in the office. Surgery was postponed yesterday secondary to Eliquis. His last dose was May 31 however anesthesia prefers to do a spinal approach and would like the Eliquis to be out of the system for 3 days. He is seen and examined resting comfortably lying flat in bed in no acute distress. He has no symptoms of chest pain, shortness of breath, dizziness or palpitations. Blood pressure is 119/59 heart rate 96 afebrile maintaining oxygen saturation on room air. Laboratory data reviewed, WBC 5.4, hemoglobin 8.1, platelets 147, sodium 137, potassium 4.7, creatinine 1.3. Currently maintained on amiodarone 200 mg daily, aspirin 81 mg daily, atorvastatin 80 mg daily, metoprolol 25 mg twice a day. Eliquis and entresto continue to be held secondary to hyperkalemia. GENERAL: Well-appearing, well-nourished and in no acute distress. NECK: Supple without JVD or thyromegaly. LUNGS: Breath sounds clear to auscultation bilaterally. Respiration equal and un labored. No wheezes, rales or rhonchi. HEART: Regular rate and rhythm with systolic murmur at the apex, no rubs or gallops. S1 and S2 heard. EXTREMITIES: Trace bilateral lower extremity non-pitting edema. No clubbing or cyanosis. Peripheral pulses intact. ASSESSMENT Fall, no syncope Distal fibula fracture Hyperkalemia, resolved Hypertension Ischemic cardiomyopathy status post AICD Chronic systolic heart failure, clinically euvolemic Coronary artery disease status post bypass grafting Diabetes mellitus PLAN Surgery was postponed secondary to Eliquis. Surgery now scheduled for tomorrow. He remains clinically stable. Nurse Practitioner note has been reviewed, I agree with a documented findings and plan of care. Patient was seen and examined. Objective - Vital Signs Vital signs: Vital Signs Temp 98.2 F 06/03/20 08:51 Pulse 96 06/03/20 08:51 Resp 16 06/03/20 08:51 BP 119/59 06/03/20 08:51 Pulse Ox 98 06/03/20 08:51 Intake & Output 06/02/20 06/03/20 06/03/20 18:59 06:59 18:59 Intake Total 620 Output Total 375 Balance 245 Intake: IV 100 Oral 520 Output: Urine 375 Other: Voiding Method Urinal Urinal # Voids 300 1 - Labs CBC & Chem 7: 06/03/20 05:43 06/03/20 05:43 Labs: Abnormal Lab Results - Last 24 Hours (Table) 06/02/20 06/02/20 06/02/20 Range/Units 11:36 12:55 15:13 RBC (4.30-5.90) m/uL Hgb (13.0-17.5) gm/dL Hct (39.0-53.0) % MCH (25.0-35.0) pg MCHC (31.0-37.0) g/dL RDW (11.5-15.5) % Plt Count (150-450) k/uL Potassium 5.2 H (3.5-5.1) mmol/L Chloride (98-107) mmol/L BUN (9-20) mg/dL Creatinine (0.66-1.25) mg/dL Glucose (74-99) mg/dL POC Glucose (mg/dL) 251 H 249 H (75-99) mg/dL Calcium (8.4-10.2) mg/dL Alkaline Phosphatase (38-126) U/L Total Protein (6.3-8.2) g/dL Albumin (3.5-5.0) g/dL 06/02/20 06/02/20 06/03/20 Range/Units 16:34 20:33 05:43 RBC (4.30-5.90) m/uL Hgb (13.0-17.5) gm/dL Hct (39.0-53.0) % MCH (25.0-35.0) pg MCHC (31.0-37.0) g/dL RDW (11.5-15.5) % Plt Count (150-450) k/uL Potassium (3.5-5.1) mmol/L Chloride 109 H (98-107) mmol/L BUN 28 H (9-20) mg/dL Creatinine 1.32 H (0.66-1.25) mg/dL Glucose 225 H (74-99) mg/dL POC Glucose (mg/dL) 246 H 351 H (75-99) mg/dL Calcium 8.3 L (8.4-10.2) mg/dL Alkaline Phosphatase 134 H (38-126) U/L Total Protein 5.4 L (6.3-8.2) g/dL Albumin 3.0 L (3.5-5.0) g/dL 06/03/20 06/03/20 Range/Units 05:43 06:37 RBC 3.32 L (4.30-5.90) m/uL Hgb 8.1 L (13.0-17.5) gm/dL Hct 27.7 L (39.0-53.0) % MCH 24.4 L (25.0-35.0) pg MCHC 29.3 L (31.0-37.0) g/dL RDW 18.1 H (11.5-15.5) % Plt Count 147 L (150-450) k/uL Potassium (3.5-5.1) mmol/L Chloride (98-107) mmol/L BUN (9-20) mg/dL Creatinine (0.66-1.25) mg/dL Glucose (74-99) mg/dL POC Glucose (mg/dL) 278 H (75-99) mg/dL Calcium (8.4-10.2) mg/dL Alkaline Phosphatase (38-126) U/L Total Protein (6.3-8.2) g/dL Albumin (3.5-5.0) g/dL
--- NOTE | 2020-06-03 11:32 | P.PN ---
Subjective This is a pleasant 79-year-old male past medical history significant for coronary artery disease status post bypass grafting, ischemic cardiomyopathy status post AICD, chronic systolic heart failure and chronic persistent atrial fibrillation. He is a patient of Dr. Lugo in the office. He is scheduled to undergo surgical intervention later today. His potassium was high on admission at 5.9K Kayexalate was given an aching down only to 5.2. Blood pressure 123/66 heart rate 93 afebrile maintaining oxygen saturation on room air. He has no symptoms of chest discomfort, shortness of breath or dizziness. Aldactone, Eliquis and entresto are on hold. GENERAL: Well-appearing, well-nourished and in no acute distress. NECK: Supple without JVD or thyromegaly. LUNGS: Breath sounds clear to auscultation bilaterally. Respiration equal and unlabored. No wheezes, rales or rhonchi. HEART: Regular rate and rhythm with systolic murmur at the apex, no rubs or gallops. S1 and S2 heard. EXTREMITIES: Trace bilateral lower extremity non-pitting edema. No clubbing or cyanosis. Peripheral pulses intact. ASSESSMENT Fall, no syncope Distal fibula fracture Hyperkalemia, resolved Hypertension Ischemic cardiomyopathy status post AICD Chronic systolic heart failure, clinically euvolemic Coronary artery disease status post bypass grafting Diabetes mellitus PLAN Give additional Kayexalate this morning and proceed with surgery this afternoon. Nurse Practitioner note has been reviewed, I agree with a documented findings and plan of care. Patient was seen and examined. Objective - Vital Signs Vital signs: Vital Signs Temp 98.2 F 06/03/20 08:51 Pulse 96 06/03/20 08:51 Resp 16 06/03/20 08:51 BP 119/59 06/03/20 08:51 Pulse Ox 98 06/03/20 08:51 Intake & Output 06/02/20 06/03/20 06/03/20 18:59 06:59 18:59 Intake Total 620 Output Total 375 Balance 245 Intake: IV 100 Oral 520 Output: Urine 375 Other: Voiding Method Urinal Urinal # Voids 300 1 - Labs CBC & Chem 7: 06/03/20 05:43 06/03/20 05:43 Labs: Abnormal Lab Results - Last 24 Hours (Table) 06/02/20 06/02/20 06/02/20 Range/Units 11:36 12:55 15:13 RBC (4.30-5.90) m/uL Hgb (13.0-17.5) gm/dL Hct (39.0-53.0) % MCH (25.0-35.0) pg MCHC (31.0-37.0) g/dL RDW (11.5-15.5) % Plt Count (150-450) k/uL Potassium 5.2 H (3.5-5.1) mmol/L Chloride (98-107) mmol/L BUN (9-20) mg/dL Creatinine (0.66-1.25) mg/dL Glucose (74-99) mg/dL POC Glucose (mg/dL) 251 H 249 H (75-99) mg/dL Calcium (8.4-10.2) mg/dL Alkaline Phosphatase (38-126) U/L Total Protein (6.3-8.2) g/dL Albumin (3.5-5.0) g/dL 06/02/20 06/02/20 06/03/20 Range/Units 16:34 20:33 05:43 RBC (4.30-5.90) m/uL Hgb (13.0-17.5) gm/dL Hct (39.0-53.0) % MCH (25.0-35.0) pg MCHC (31.0-37.0) g/dL RDW (11.5-15.5) % Plt Count (150-450) k/uL Potassium (3.5-5.1) mmol/L Chloride 109 H (98-107) mmol/L BUN 28 H (9-20) mg/dL Creatinine 1.32 H (0.66-1.25) mg/dL Glucose 225 H (74-99) mg/dL POC Glucose (mg/dL) 246 H 351 H (75-99) mg/dL Calcium 8.3 L (8.4-10.2) mg/dL Alkaline Phosphatase 134 H (38-126) U/L Total Protein 5.4 L (6.3-8.2) g/dL Albumin 3.0 L (3.5-5.0) g/dL 06/03/20 06/03/20 Range/Units 05:43 06:37 RBC 3.32 L (4.30-5.90) m/uL Hgb 8.1 L (13.0-17.5) gm/dL Hct 27.7 L (39.0-53.0) % MCH 24.4 L (25.0-35.0) pg MCHC 29.3 L (31.0-37.0) g/dL RDW 18.1 H (11.5-15.5) % Plt Count 147 L (150-450) k/uL Potassium (3.5-5.1) mmol/L Chloride (98-107) mmol/L BUN (9-20) mg/dL Creatinine (0.66-1.25) mg/dL Glucose (74-99) mg/dL POC Glucose (mg/dL) 278 H (75-99) mg/dL Calcium (8.4-10.2) mg/dL Alkaline Phosphatase (38-126) U/L Total Protein (6.3-8.2) g/dL Albumin (3.5-5.0) g/dL
[2020-06-03 12:01] LABS: Glucose,Whole Blood 283 mg/dL (75-99)
[2020-06-03 17:06] LABS: Glucose,Whole Blood 473 mg/dL (75-99)
[2020-06-03] MEDS ORDERED: INSULIN ASPART (NovoLOG) 100 UNIT/ML VIAL SQ ONE (17:14)
[2020-06-03] MEDS ORDERED: INSULIN DETEMIR (LEVEMIR) 100 UNIT/ML SYR SQ ONE (17:14)
[2020-06-03 20:17] LABS: Glucose,Whole Blood 364 mg/dL (75-99)
[2020-06-03] MEDS: TAMSULOSIN 0.4 MG CAP.ER.24H PO SCH (20:30)
[2020-06-03] MEDS: ATORVASTATIN 80 MG TAB PO SCH (20:30)
--- NOTE | 2020-06-03 21:20 | P.PN ---
Subjective Progress Note Date: 06/03/20 Principal diagnosis: Left ankle fracture Mr. Powell is a 79-year-old male with a past medical history of coronary artery disease, congestive heart failure, atrial fibrillation, diabetes mellitus, chocolate neuropathy, hypertension, hyperlipidemia, prostate disorder, peripheral arterial disease coming into the hospital with a chief complaint of left leg pain. Patient is very hard of hearing. Most of the history is given by the was at bedside today. His mentions that on Monday he was working in the garage where he slipped and had a fall and since then he started to have pain in his left foot. At baseline patient walks with a walker, as he has chocolate neuropathy and decreased sensation in both of his feet. Patient stated home for a couple of days until yesterday morning when he went to urgent care that [facility] had x-rays done there and his foot was wrapped and sent to [facility] [place] for further evaluation. In the emergency patient had ankle x-ray done showing fracture of the lateral malleolus and lateral partial dislocation of the talus. There is probably old posterior malleolus mildly displaced chip fracture. 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 So orthopedic consultation was obtained and patient is admitted for further evaluation. On 06/02/2020- patient is lying in bed comfortably appears to be in no acute distress. Cardiology Dr. Gonzalez has evaluated the patient yesterday and cleared him for surgery. He will be taken to the OR by orthopedics today. Currently his potassium is at 5.3, he just received a dose of Kayexalate, trying to get his potassium below 5 before he goes for the surgery. Patient's vitals have been stable. No acute events reported by nursing staff. Patient denies having any chest pain, palpitations, cough or difficulty breathing. No abnormal pain nausea vomiting or diarrhea. On 06/03/2020 -patient is lying in bed comfortably. He complains of pain in his left ankle. No acute events reported by nursing staff. The patient surgery was postponed for tomorrow as they want to wait for 1 more day due to his Eliquis. Patient still continues to be in atrial fibrillation but rate controlled. He denies having any chest pain or palpitations. No cough or difficulty breathing. No abdominal pain nausea vomiting or diarrhea. No dysuria patient's vitals have been reviewed, saturating at 97% on room air with blood pressure 130/60, heart rate 73, temperature 97.5. Patient's labs from this morning hemoglobin is stable around 8.1. Platelets 147, sodium 137, potassium 4.7, chloride 109, bicarb 23, BUN 28, creatinine 1.3. Active Medications Acetaminophen (Tylenol Tab) 1,000 mg PO Q8HR [facility] Last Admin: 06/03/20 17:03 Dose: 1,000 mg Documented by: Hydrocodone Bitart/Acetaminophen ([place] 5-325) 1 each PO Q6HR PRN PRN Reason: Pain Scale 1 to 5 Hydrocodone Bitart/Acetaminophen ([place] 5-325) 2 each PO Q6HR PRN PRN Reason: Pain Scale 6 to 10 Amiodarone HCl (Cordarone) 200 mg PO DAILY [facility] Last Admin: 06/03/20 07:31 Dose: 200 mg Documented by: Aspirin (Aspirin) 81 mg PO DAILY [facility] Last Admin: 06/03/20 07:31 Dose: Not Given Documented by: Atorvastatin Calcium (Lipitor) 80 mg PO HS [facility] Last Admin: 06/03/20 20:30 Dose: 80 mg Documented by: Cholecalciferol (Vitamin D3 (25 Mcg = 1000 Iu)) 2,000 unit PO DAILY@1200 [facility] Last Admin: 06/03/20 07:31 Dose: 2,000 unit Documented by: Famotidine (Pepcid) 20 mg PO DAILY [facility] Last Admin: 06/03/20 07:31 Dose: 20 mg Documented by: Fluticasone Propionate (Flonase Nasal [place]) 2 spray EA NOSTRIL DAILY PRN PRN Reason: seasonal allergies Hydromorphone HCl (Dilaudid) 0.125 mg IVP Q3HR PRN PRN Reason: Pain Scale 1 to 3 Hydromorphone HCl (Dilaudid) 0.25 mg IVP Q3HR PRN PRN Reason: Pain Scale 4 to 6 Hydromorphone HCl (Dilaudid) 0.5 mg IVP Q3HR PRN PRN Reason: Pain Scale 7 to 10 Sodium Chloride (Saline 0.9%) 1,000 mls @ 65 mls/hr IV .[id number] [facility] Last Admin: 06/03/20 20:31 Dose: 65 mls/hr Documented by: Insulin Aspart (Novolog) 0 unit SQ ACHS [facility]; Protocol Last Admin: 06/03/20 20:30 Dose: 6 unit Documented by: Melatonin (Melatonin) 5 mg PO HS PRN PRN Reason: Insomnia Last Admin: 06/01/20 21:24 Dose: 5 mg Documented by: Metoprolol Tartrate (Lopressor) 25 mg PO BID [facility] Last Admin: 06/03/20 20:30 Dose: 25 mg Documented by: Morphine Sulfate (Morphine Sulfate (Inj)) 4 mg IVP Q4HR PRN PRN Reason: MODERATE Pain Last Admin: 05/31/20 16:55 Dose: 4 mg Documented by: Naloxone HCl (Narcan) 0.2 mg IV Q2M PRN PRN Reason: Opioid Reversal Ondansetron HCl (Zofran) 4 mg IVP Q8H PRN PRN Reason: Nausea And Vomiting Senna/Docusate Sodium (Senokot-S) 2 each PO HS PRN PRN Reason: Constipation Tamsulosin HCl (Flomax) 0.4 mg PO HS [facility] Last Admin: 06/03/20 20:30 Dose: 0.4 mg Documented by: Objective - Vital Signs Vital signs: Vital Signs Temp 98.0 F 06/03/20 13:00 Pulse 88 06/03/20 13:00 Resp 18 06/03/20 13:00 BP 122/62 06/03/20 13:00 Pulse Ox 96 06/03/20 13:00 Intake & Output 06/02/20 06/03/20 06/03/20 18:59 06:59 18:59 Intake Total 620 Output Total 375 Balance 245 Intake: IV 100 Oral 520 Output: Urine 375 Other: Voiding Method Urinal Urinal # Voids 300 1 - Exam HYSICAL EXAMINATION: GENERAL: Patient is very hard of hearing, not in any acute distress. HEENT: Pupils are round and equally reacting to light. EOMI. No conjunctival pallor. CARDIOVASCULAR: Irregularly irregular. No additional sounds. PULMONARY: Bilateral breath sounds are positive. No wheeze or crackles. ABDOMEN: Soft, nontender, nondistended, normoactive bowel sounds. No palpable organomegaly. EXTREMITIES: No cyanosis, clubbing, or pedal edema. Left lower extremity- there is wrapped in an Kirk bandage with a splint. Patient's left toes are pink with good capillary refill, warm to touch, he has decreased sensation in left toes. NEUROLOGICAL: Gross neurological examination did not reveal any focal deficits. - Labs CBC & Chem 7: 06/03/20 05:43 06/03/20 05:43 Labs: Abnormal Lab Results - Last 24 Hours (Table) 06/02/20 06/03/20 06/03/20 Range/Units 20:33 05:43 05:43 RBC 3.32 L (4.30-5.90) m/uL Hgb 8.1 L (13.0-17.5) gm/dL Hct 27.7 L (39.0-53.0) % MCH 24.4 L (25.0-35.0) pg MCHC 29.3 L (31.0-37.0) g/dL RDW 18.1 H (11.5-15.5) % Plt Count 147 L (150-450) k/uL Chloride 109 H (98-107) mmol/L BUN 28 H (9-20) mg/dL Creatinine 1.32 H (0.66-1.25) mg/dL Glucose 225 H (74-99) mg/dL POC Glucose (mg/dL) 351 H (75-99) mg/dL Calcium 8.3 L (8.4-10.2) mg/dL Alkaline Phosphatase 134 H (38-126) U/L Total Protein 5.4 L (6.3-8.2) g/dL Albumin 3.0 L (3.5-5.0) g/dL 06/03/20 06/03/20 06/03/20 Range/Units 06:37 12:00 17:05 RBC (4.30-5.90) m/uL Hgb (13.0-17.5) gm/dL Hct (39.0-53.0) % MCH (25.0-35.0) pg MCHC (31.0-37.0) g/dL RDW (11.5-15.5) % Plt Count (150-450) k/uL Chloride (98-107) mmol/L BUN (9-20) mg/dL Creatinine (0.66-1.25) mg/dL Glucose (74-99) mg/dL POC Glucose (mg/dL) 278 H 283 H 473 H (75-99) mg/dL Calcium (8.4-10.2) mg/dL Alkaline Phosphatase (38-126) U/L Total Protein (6.3-8.2) g/dL Albumin (3.5-5.0) g/dL Assessment and Plan Assessment: ASSESSMENT Acute Left ankle fracture Hyperkalemia Anemia- unknown baseline Thrombocytopenia- unknown baseline Atrial fibrillation persistent-rate controlled-on anticoagulation with apixaban Coronary artery disease Type 2 diabetes mellitus- poorly controlled Congestive heart failure- unknown ejection fraction Hypertension Hyperlipidemia Severe peripheral artery disease Chocolate neuropathy Gait instability Former nicotine dependence PLAN: Patient was cleared by cardiology for surgery Orthopedic planning for repair of the left ankle fracture. Surgery has been postponed for tomorrow, as they want to wait for 1 more day off of Eliquis. Patient's blood sugars have been running on the higher side, adjusting the insulin levels depending on the blood sugars.Further recommendations to follow depending on the progress of the patient.
[2020-06-03] MEDS ORDERED: HYDROmorphone 0.5 MG/0.5 ML SYRINGE IVP PRN (22:21)
[2020-06-03] MEDS: LACTATED RINGERS 1,000 ML IV SCH (23:16)
[2020-06-04 07:13] LABS: Glucose,Whole Blood 311 mg/dL (75-99)
[2020-06-04] MEDS: AMIODARONE 200 MG TAB PO SCH (08:22)
[2020-06-04] MEDS: METOPROLOL TARTRATE 25 MG TAB PO SCH ×2 (08:22→21:24)
[2020-06-04] MEDS: CHOLECALCIFEROL 1,000 UNIT TAB PO SCH (08:22)
[2020-06-04] MEDS: FAMOTIDINE 20 MG TAB PO SCH (08:22)
[2020-06-04] MEDS: ACETAMINOPHEN TAB 500 MG TAB PO SCH ×3 (08:23→23:56)
[2020-06-04] MEDS: ASPIRIN 81 MG PO SCH (08:23)
[2020-06-04] MEDS: INSULIN ASPART (NovoLOG) 100 UNIT/ML VIAL SQ SCH ×4 (08:26→21:25)
[2020-06-04] MEDS: SODIUM CHLORIDE 0.9% 1,000 ML IV SCH (11:27)
[2020-06-04 11:41] LABS: Glucose,Whole Blood 196 mg/dL (75-99)
[2020-06-04] MEDS ORDERED: IV FLUID CONTINUATION 1,000 ML IV ONE (12:03)
[2020-06-04] MEDS ORDERED: MIDAZOLAM 2 MG/2 ML VIAL ONE (13:00)
[2020-06-04] MEDS ORDERED: fentaNYL (PF) 50 MCG/ML 2 ML AMP ONE (13:00)
[2020-06-04] MEDS ORDERED: PROPOFOL 10 MG/ML 20 ML VIAL IV ONE (13:00)
[2020-06-04] MEDS ORDERED: SODIUM CHLORIDE 0.9% 100 ML with ceFAZolin 2,000 MG IV ONE ×2 (13:15)
--- NOTE | 2020-06-04 15:31 | P.OP ---
Date of Procedure: 06/04/20 Preoperative Diagnosis: Trimalleolar fracture dislocation left ankle Postoperative Diagnosis: Trimalleolar fracture dislocation left ankle Procedure(s) Performed: Open reduction and internal fixation trimalleolar fracture dislocation left ankle with plating of the distal fibula and screw fixation of the medial malleolus and syndesmosis. Implants: [employer] ankle fracture set Anesthesia: spinal Surgeon: David Angel Reproduction Order Processor #1: Dennise Cruz Estimated Blood Loss (ml): 20 Pathology: none sent Condition: stable Disposition: PACU Indications for Procedure: This is a 79-year-old gentleman that fell last Moises. He sustained a trimalleolar fracture dislocation of his left ankle. Patient has a history of having a Charcot foot and decreased sensation in his left lower extremity. After discussing the surgical nonsurgical treatment options with him at length, I recommended an open reduction fixation of his left ankle. This was discussed at length because of the strong possibility of complications secondary to his Charcot joint. I have indicated multiple times that after the fracture fixation if the patient was to walk on the ankle before healing, the fracture could displace again and he may end up with an amputation. He is aware of this informed consent was obtained. Operative Findings: Operative findings are consistent with a trimalleolar fracture dislocation left ankle. Description of Procedure: The patient was seen and evaluated in the preoperative area. The consent was reviewed and the operative site was marked with a skin marker. Patient was then brought to the operating room and given 2 g of Ancef by the anesthesia department. A spinal anesthetic was then administered by the anesthesia department. Tourniquet was placed on the upper thigh and the lower extremity was then prepped and draped in the usual sterile fashion. A universal timeout was then performed which confirmed the patient's name, surgical site, ALLERGIES, and consent. The lower extremity was then exsanguinated, and the tourniquet inflated to 250 mmHg. A standard lateral incision was then performed over the distal fibula with the skin and subcutaneous tissue sharply incised with the incision centered over the fracture site. Tissues were carefully dissected down to the fracture site. The fracture hematoma was evacuated and the fracture was then reduced with bone reducing clamps. The ankle was extremely difficult to reduce secondary to the severity of the injury and also his neuropathic foot. The ankle mortise was unable to be reduced and held in position. The ankle was reduced as best as possible and a plate was placed on the lateral aspect of the fibula. Screws were placed both proximally and distally while the ankle mortise was held reduced. 3 syndesmotic screws were placed through the plate as well. Next attention was directed to the medial side of the ankle. There is 3 large fracture blisters on the medial side of the ankle and the incision was curved around the blisters. Incision was carried down to the medial malleolus. The fracture was then visualized. This extremely comminuted and impossible to reduce all the fracture fragments. A soft tissue repair was attempted on the medial side, but the tissues did not hold any sutures. Final inal fluoroscopic x-rays confirmed reduction of the fracture as best as could be obtained. Multiple attempts were made to order to prove the reduction, but due to the severity of the injury and the patient's poor bone and tissue, the reduction was not able to be maintained anatomically. The tourniquet was then released and hemostasis was obtained. The incision site was then irrigated with antibiotic solution. Wound was then closed with 2-0 Vicryl for the subcutaneous tissue and reyna for the skin. Sterile dressings were applied, and a well-padded and molded posterior splint was placed. Patient was then transported to the recovery room in stable condition. The railway yard assistant ZAN Robins was required due to the complexity of the surgery and the need for a skilled surgical forceps fabricator.
[2020-06-04] MEDS ORDERED: diphenhydrAMINE 25 MG CAP PO PRN (15:43)
--- NOTE | 2020-06-04 15:48 | P.PN ---
Subjective Progress Note Date: 06/04/20 Principal diagnosis: Left ankle fracture Mr. Powell is a 79-year-old male with a past medical history of coronary artery disease, congestive heart failure, atrial fibrillation, diabetes mellitus, chocolate neuropathy, hypertension, hyperlipidemia, prostate disorder, peripheral arterial disease coming into the hospital with a chief complaint of left leg pain. Patient is very hard of hearing. Most of the history is given by the was at bedside today. His mentions that on Monday he was working in the garage where he slipped and had a fall and since then he started to have pain in his left foot. At baseline patient walks with a walker, as he has chocolate neuropathy and decreased sensation in both of his feet. Patient stated home for a couple of days until yesterday morning when he went to urgent care that [facility]. [facility] had [facility] done there and his foot was wrapped and sent to [facility] for further evaluation. In the emergency patient had ankle x-ray done showing fracture of the lateral malleolus and lateral partial dislocation of the talus. There is probably old posterior malleolus mildly displaced chip fracture. 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 So orthopedic consultation was obtained and patient is admitted for further evaluation. On 06/02/2020- patient is lying in bed comfortably appears to be in no acute distress. Cardiology Dr. Gonzalez has evaluated the patient yesterday and cleared him for surgery. He will be taken to the OR by orthopedics today. Currently his potassium is at 5.3, he just received a dose of Kayexalate, trying to get his potassium below 5 before he goes for the surgery. Patient's vitals have been stable. No acute events reported by nursing staff. Patient denies having any chest pain, palpitations, cough or difficulty breathing. No abnormal pain nausea vomiting or diarrhea. On 06/03/2020 -patient is lying in bed comfortably. He complains of pain in his left ankle. No acute events reported by nursing staff. The patient surgery was postponed for tomorrow as they want to wait for 1 more day due to his Eliquis. Patient still continues to be in atrial fibrillation but rate controlled. He denies having any chest pain or palpitations. No cough or difficulty breathing. No abdominal pain nausea vomiting or diarrhea. No dysuria patient's vitals have been reviewed, saturating at 97% on room air with blood pressure 130/60, heart rate 73, temperature 97.5. Patient's labs from this morning hemoglobin is stable around 8.1. Platelets 147, sodium 137, potassium 4.7, chloride 109, bicarb 23, BUN 28, creatinine 1.3. 06/04/2020 Patient is seen and evaluated and follow-up is currently nothing by mouth as patient will be undergoing left ankle fracture repair today. Patient has been off of Eliquis and will continue to hold status post surgery until resuming anticoagulant is recommended by cardiology and orthopedic surgery. Currently lying in bed with no reports of chest pain, shortness of breath, or palpitatio ns. Patient is afebrile. No reports of nausea or vomiting noted. Objective - Vital Signs Vital signs: Vital Signs Temp 97.6 F 06/04/20 11:58 Pulse 78 06/04/20 11:58 Resp 16 06/04/20 11:58 BP 148/82 06/04/20 11:58 Pulse Ox 96 06/04/20 11:58 Intake & Output 06/03/20 06/04/20 06/04/20 18:59 06:59 18:59 Intake Total 260 350 Output Total 500 530 Balance -240 -180 Intake: IV 350 Intake, IV Titration 260 Amount Sodium Chloride 0.9% 1, 260 000 ml @ 65 mls/hr IV . [id number] [facility] Rx#:[id number] Output: Urine 500 500 Estimated Blood Loss 30 Other: Voiding Method Urinal Urinal Urinal # Voids 1 3 # Bowel Movements 1 - Exam GENERAL: Patient is very hard of hearing, not in any acute distress. HEENT: Pupils are round and equally reacting to light. EOMI. No conjunctival pallor. CARDIOVASCULAR: Irregularly irregular. No additional sounds. PULMONARY: Diminished breath sounds bilaterally with no wheeze or crackles noted. ABDOMEN: Soft, nontender, nondistended, normoactive bowel sounds. No palpable organomegaly. EXTREMITIES: No cyanosis, clubbing, or pedal edema. Left lower extremity continues to be wrapped with the splint and Kirk wrap Patient's left toes are pink with good capillary refill, warm to touch, decreased sensation in left toes noted on exam NEUROLOGICAL: Gross neurological examination did not reveal any focal deficits. - Labs CBC & Chem 7: 06/03/20 05:43 06/03/20 05:43 Labs: Abnormal Lab Results - Last 24 Hours (Table) 06/03/20 06/03/20 06/04/20 Range/Units 17:05 20:15 07:07 POC Glucose (mg/dL) 473 H 364 H 311 H (75-99) mg/dL 06/04/20 Range/Units 11:35 POC Glucose (mg/dL) 196 H (75-99) mg/dL Assessment and Plan Assessment: Acute Left ankle fracture Hyperkalemia Anemia- unknown baseline Thrombocytopenia- unknown baseline Atrial fibrillation persistent-rate controlled-on anticoagulation with apixaban Coronary artery disease Type 2 diabetes mellitus- poorly controlled Congestive heart failure- unknown ejection fraction Hypertension Hyperlipidemia Severe peripheral artery disease Peripheral neuropathy Gait instability Former nicotine dependence Full code GI prophylaxis: Pepcid PLAN: Continue current medications, management, and symptomatic treatment. Patient underwent open reduction and internal fixation of the trimalleolar fracture dislocation of the left ankle with plating of the distal fibula and screw fixation of the medial malleolus and syndesmosis with Dr. Angel today. Will await report. Patient is continue holding anticoagulant until recommendations for resuming Eliquis are obtained by orthopedic surgery, anesthesia, as well as cardiology due to his high risk of bleeding as the patient received spinal anesthesia. Patient will resume diet once postoperatively stable and will continue to monitor blood sugars closely. PT/OT to evaluate the patient and awaiting orthopedic recommendations on nonweightbearing of the left lower extremity. Will repeat a.m. labs. Further recommendations to follow depending on the progress of the patient.
--- NOTE | 2020-06-04 16:43 | FL ---
EXAMINATION TYPE: FL guidance operating room, XR ankle limited LT DATE OF EXAM: 06/04/2020 CLINICAL HISTORY: Left ankle fracture. TECHNIQUE: Fluoroscopy. Limited intraoperative views left ankle. COMPARISON: Left ankle xray 4 days ago. FINDINGS: Fluoroscopic guidance was provided during open reduction and internal fixation procedure p erformed by Dr. Angel. A total of 150 seconds of fluoroscopic time was utilized during the proced ure and 2 spot fluoroscopic intraoperative images are acquired. Images acquired show placement of a lateral fixating plate with 3 fixating screws extending into the region of the distal tibial diaphysis at least inferiorly on the lateral projection. Satisfactory ali gnment of the distal fibular comminuted fracture noted after reduction and fixation. Improved alignme nt in the medial malleolus displaced fracture after reduction noted. IMPRESSION: As Above.
[2020-06-04 16:54] LABS: Glucose,Whole Blood 208 mg/dL (75-99)
[2020-06-04] MEDS: LACTATED RINGERS 1,000 ML IV SCH (17:27)
[2020-06-04] MEDS: HYDROmorphone 0.5 MG/0.5 ML SYRINGE IVP PRN ×2 (18:58→23:57)
[2020-06-04 20:46] LABS: Glucose,Whole Blood 250 mg/dL (75-99)
[2020-06-04] MEDS: ATORVASTATIN 80 MG TAB PO SCH (21:24)
[2020-06-04] MEDS: TAMSULOSIN 0.4 MG CAP.ER.24H PO SCH (21:24)
[2020-06-04] MEDS: MELATONIN 5 MG TABLET PO PRN (21:24)
[2020-06-04] MEDS: SENNOSIDES-DOCUSATE SODIUM 1 EACH TAB PO PRN (21:24)
[2020-06-04] MEDS: MORPHINE SULFATE 4 MG/ML SYRINGE IVP PRN (21:25)
[2020-06-05] MEDS: LACTATED RINGERS 1,000 ML IV SCH ×4 (00:02→22:35)
[2020-06-05] MEDS: SODIUM CHLORIDE 0.9% 1,000 ML IV SCH ×2 (00:02→18:25)
[2020-06-05] MEDS: MORPHINE SULFATE 4 MG/ML SYRINGE IVP PRN (02:57)
[2020-06-05 07:24] LABS: Glucose,Whole Blood 205 mg/dL (75-99)
[2020-06-05] MEDS: FAMOTIDINE 20 MG TAB PO SCH ×2 (07:53→22:08)
[2020-06-05] MEDS: ACETAMINOPHEN TAB 500 MG TAB PO SCH ×2 (07:53→17:20)
[2020-06-05] MEDS: METOPROLOL TARTRATE 25 MG TAB PO SCH ×2 (07:54→22:08)
[2020-06-05] MEDS: INSULIN ASPART (NovoLOG) 100 UNIT/ML VIAL SQ SCH ×5 (07:54→22:34)
[2020-06-05] MEDS: AMIODARONE 100 MG TAB PO SCH (07:54)
[2020-06-05] MEDS: ASPIRIN 81 MG PO SCH (07:54)
[2020-06-05 09:09] LABS: Anisocytosis Slight; Basophils % (A) 0 %; Eosinophils # (A) 0.1 k/uL (0-0.7); Eosinophils % (A) 2 %; HCT 27.1 % (39.0-53.0); HGB 7.9 gm/dL (13.0-17.5); Hypochromasia Marked; Lymphocytes # (A) 0.7 k/uL (1.0-4.8); Lymphocytes % (A) 11 %; MCH 24.5 pg (25.0-35.0); MCHC 29.2 g/dL (31.0-37.0); Monocytes # (A) 0.4 k/uL (0-1.0); Monocytes % (A) 6 %; Neutrophils # (A) 5.1 k/uL (1.3-7.7); Neutrophils % (A) 80 %; Platelet Count 126 k/uL (150-450); RBC 3.23 m/uL (4.30-5.90); RDW 18.1 % (11.5-15.5); WBC 6.4 k/uL (3.8-10.6)
[2020-06-05 09:15] LABS: Calcium 8.7 mg/dL (8.4-10.2); Potassium 4.9 mmol/L (3.5-5.1)
--- NOTE | 2020-06-05 09:37 | P.PN ---
Subjective Progress Note Date: 06/05/20 Principal diagnosis: Left ankle fracture. Status post open reduction internal fixation left ankle. This is a 79-year-old gentleman that fell last Moises. He sustained a trimal leolar fracture dislocation of his left ankle. Patient has a history of having a Charcot foot and decreased sensation in his left lower extremity. After discussing the surgical nonsurgical treatment options with him at length, I recommended an open reduction fixation of his left ankle. This was discussed at length because of the strong possibility of complications secondary to his Charcot joint. I have indicated multiple times that after the fracture fixation if the patient was to walk on the ankle before healing, the fracture could displace again and he may end up with an amputation. He has postoperative day #1 status post ORIF left ankle. He has no new complaints or concerns today. Vital signs are stable. Objective - Vital Signs Vital signs: Vital Signs Temp 97.6 F 06/05/20 04:16 Pulse 89 06/05/20 07:57 Resp 18 06/05/20 04:16 BP 132/69 06/05/20 07:57 Pulse Ox 98 06/05/20 04:16 Intake & Output 06/04/20 06/05/20 06/05/20 18:59 06:59 18:59 Intake Total 450 1580 Output Total 530 600 Balance -80 980 Intake: IV 450 Intake, IV Titration 500 Amount Lactated Ringers 1,000 ml 400 @ 100 mls/hr IV .Q10H [facility] Rx#:[id number] ceFAZolin 2 gm In Sodium 100 Chloride 0.9% 50 ml @ 100 mls/hr IVPB Q8H [facility] Rx#: [id number] Oral 1080 Output: Urine 500 600 Estimated Blood Loss 30 Other: Voiding Method Urinal Urinal # Voids 3 - Exam This is a pleasant 79-year-old male in no acute distress. He is alert and oriented 3. Exam of the left lower extremity reveals that his splint is intact. He has full toe motion without difficulty or pain. Capillary refill is less than 3 seconds. - Labs CBC & Chem 7: 06/05/20 08:13 06/05/20 08:13 Labs: Abnormal Lab Results - Last 24 Hours (Table) 06/04/20 06/04/20 06/04/20 Range/Units 11:35 16:50 20:45 RBC (4.30-5.90) m/uL Hgb (13.0-17.5) gm/dL Hct (39.0-53.0) % MCH (25.0-35.0) pg MCHC (31.0-37.0) g/dL RDW (11.5-15.5) % Plt Count (150-450) k/uL Lymphocytes # (1.0-4.8) k/uL Chloride (98-107) mmol/L BUN (9-20) mg/dL Glucose (74-99) mg/dL POC Glucose (mg/dL) 196 H 208 H 250 H (75-99) mg/dL 06/05/20 06/05/20 06/05/20 Range/Units 07:09 08:13 08:13 RBC 3.23 L (4.30-5.90) m/uL Hgb 7.9 L (13.0-17.5) gm/dL Hct 27.1 L (39.0-53.0) % MCH 24.5 L (25.0-35.0) pg MCHC 29.2 L (31.0-37.0) g/dL RDW 18.1 H (11.5-15.5) % Plt Count 126 L (150-450) k/uL Lymphocytes # 0.7 L (1.0-4.8) k/uL Chloride 108 H (98-107) mmol/L BUN 25 H (9-20) mg/dL Glucose 192 H (74-99) mg/dL POC Glucose (mg/dL) 205 H (75-99) mg/dL Assessment and Plan (1) Charcot foot due to diabetes mellitus Current Visit: Yes Status: Acute Code(s): E11.610 - TYPE 2 DIABETES MELLITUS W DIABETIC NEUROPATHIC ARTHROPATHY SNOMED Code(s): 043650599 (2) Diabetes mellitus Current Visit: Yes Status: Acute Code(s): E11.9 - TYPE 2 DIABETES MELLITUS WITHOUT COMPLICATIONS SNOMED Code(s): 10167921 (3) Fall Current Visit: Yes Status: Acute Code(s): W19.XXXA - UNSPECIFIED FALL, INITIAL ENCOUNTER SNOMED Code(s): 8823458 (4) Trimalleolar fracture of ankle, closed Current Visit: Yes Status: Acute Code(s): S82.853A - DISPLACED TRIMALLEOLAR FRACTURE OF UNSP LOWER LEG, INIT SNOMED Code(s): 4278599 Plan: The clinical findings are discussed with the patient. He is to be strict nonweightbearing to the left lower extremity with the walker. Keep splint intact. We will continue to follow. Plan discharge Monday to rehab versus home.
[2020-06-05] MEDS: HYDROmorphone 0.5 MG/0.5 ML SYRINGE IVP PRN ×2 (09:43→17:27)
[2020-06-05 11:23] LABS: Glucose,Whole Blood 265 mg/dL (75-99)
--- NOTE | 2020-06-05 11:47 | P.PN ---
Subjective This is a pleasant 79-year-old male past medical history significant for coronary artery disease status post bypass grafting, ischemic cardiomyopathy status post AICD, chronic systolic heart failure and chronic persistent atrial fibrillation. He is a patient of Dr. Germain in the office. He underwent surgical repair of his ankle yesterday. He is seen and examined laying flat resting comfortably in bed in no acute distress. He denies chest pain, shortness of breath, dizziness or palpitations. Blood pressure 125/65 heart rate 82 afebr ile and maintaining oxygen saturation on room air. Laboratory reviewed, WBC 6.4, hgb 7.9, plt 126, sodium 137, potassium 4.9, creatinine 1.18. GENERAL: Well-appearing, well-nourished and in no acute distress. NECK: Supple without JVD or thyromegaly. LUNGS: Breath sounds clear to auscultation bilaterally. Respiration equal and unlabored. No wheezes, rales or rhonchi. HEART: Regular rate and rhythm with systolic murmur at the apex, no rubs or gallops. S1 and S2 heard. EXTREMITIES: Trace bilateral lower extremity non-pitting edema. No clubbing or cyanosis. Peripheral pulses intact. ASSESSMENT Fall, no syncope Distal fibula fracture Hyperkalemia, resolved Hypertension Ischemic cardiomyopathy status post AICD Chronic systolic heart failure, clinically euvolemic Coronary artery disease status post bypass grafting Diabetes mellitus PLAN Resume Eliquis if okay with orthopedic team. On discharge resume entresto and discontinue aldactone. Check BMP in 3 days. We will continue to follow along as needed, follow-up in the office with his primary renewals specialist upon discharge. Nurse Practitioner note has been reviewed, I agree with a documented findings and plan of care. Patient was seen and examined. Objective - Vital Signs Vital signs: Vital Signs Temp 97.6 F 06/05/20 04:16 Pulse 89 06/05/20 07:57 Resp 18 06/05/20 04:16 BP 132/69 06/05/20 07:57 Pulse Ox 98 06/05/20 04:16 Intake & Output 06/04/20 06/05/20 06/05/20 18:59 06:59 18:59 Intake Total 450 1580 Output Total 530 600 150 Balance -80 980 -150 Intake: IV 450 Intake, IV Titration 500 Amount Lactated Ringers 1,000 ml 400 @ 100 mls/hr IV .Q10H [facility] Rx#:[id number] ceFAZolin 2 gm In Sodium 100 Chloride 0.9% 50 ml @ 100 mls/hr IVPB Q8H [facility] Rx#: [id number] Oral 1080 Output: Urine 500 600 150 Estimated Blood Loss 30 Other: Voiding Method Urinal Urinal # Voids 3 1 - Labs CBC & Chem 7: 06/05/20 08:13 06/05/20 08:13 Labs: Abnormal Lab Results - Last 24 Hours (Table) 06/04/20 06/04/20 06/04/20 Range/Units 11:35 16:50 20:45 RBC (4.30-5.90) m/uL Hgb (13.0-17.5) gm/dL Hct (39.0-53.0) % MCH (25.0-35.0) pg MCHC (31.0-37.0) g/dL RDW (11.5-15.5) % Plt Count (150-450) k/uL Lymphocytes # (1.0-4.8) k/uL Chloride (98-107) mmol/L BUN (9-20) mg/dL Glucose (74-99) mg/dL POC Glucose (mg/dL) 196 H 208 H 250 H (75-99) mg/dL 06/05/20 06/05/20 06/05/20 Range/Units 07:09 08:13 08:13 RBC 3.23 L (4.30-5.90) m/uL Hgb 7.9 L (13.0-17.5) gm/dL Hct 27.1 L (39.0-53.0) % MCH 24.5 L (25.0-35.0) pg MCHC 29.2 L (31.0-37.0) g/dL RDW 18.1 H (11.5-15.5) % Plt Count 126 L (150-450) k/uL Lymphocytes # 0.7 L (1.0-4.8) k/uL Chloride 108 H (98-107) mmol/L BUN 25 H (9-20) mg/dL Glucose 192 H (74-99) mg/dL POC Glucose (mg/dL) 205 H (75-99) mg/dL
[2020-06-05] MEDS: CHOLECALCIFEROL 1,000 UNIT TAB PO SCH (14:13)
--- NOTE | 2020-06-05 16:48 | P.PN ---
Subjective Progress Note Date: 06/05/20 Principal diagnosis: Left ankle fracture Mr. Powell is a 79-year-old male with a past medical history of coronary artery disease, congestive heart failure, atrial fibrillation, diabetes mellitus, chocolate neuropathy, hypertension, hyperlipidemia, prostate disorder, peripheral arterial disease coming into the hospital with a chief complaint of left leg pain. Patient is very hard of hearing. Most of the history is given by the was at bedside today. His mentions that on Monday he was working in the garage where he slipped and had a fall and since then he started to have pain in his left foot. At baseline patient walks with a walker, as he has chocolate neuropathy and decreased sensation in both of his feet. Patient stated home for a couple of days until yesterday morning when he went to urgent care that [facility]. [facility] had x-rays done there and his foot was wrapped and sent to [facility] for further evaluation. In the emergency patient had ankle x-ray done showing fracture of the lateral malleolus and lateral partial dislocation of the talus. There is probably old posterior malleolus mildly displaced chip fracture. 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 So orthopedic consultation was obtained and patient is admitted for further evaluation. On 06/02/2020- patient is lying in bed comfortably appears to be in no acute distress. Cardiology Dr. Gonzalez has evaluated the patient yesterday and cleared him for surgery. He will be taken to the OR by orthopedics today. Currently his potassium is at 5.3, he just received a dose of Kayexalate, trying to get his potassium below 5 before he goes for the surgery. Patient's vitals have been stable. No acute events reported by nursing staff. Patient denies having any chest pain, palpitations, cough or difficulty breathing. No abnormal pain nausea vomiting or diarrhea. On 06/03/2020 -patient is lying in bed comfortably. He complains of pain in his left ankle. No acute events reported by nursing staff. The patient surgery was postponed for tomorrow as they want to wait for 1 more day due to his Eliquis. Patient still continues to be in atrial fibrillation but rate controlled. He denies having any chest pain or palpitations. No cough or difficulty breathing. No abdominal pain nausea vomiting or diarrhea. No dysuria patient's vitals have been reviewed, saturating at 97% on room air with blood pressure 130/60, heart rate 73, temperature 97.5. Patient's labs from this morning hemoglobin is stable around 8.1. Platelets 147, sodium 137, potassium 4.7, chloride 109, bicarb 23, BUN 28, creatinine 1.3. 06/04/2020 Patient is seen and evaluated and follow-up is currently nothing by mouth as patient will be undergoing left ankle fracture repair today. Patient has been off of Eliquis and will continue to hold status post surgery until resuming anticoagulant is recommended by cardiology and orthopedic surgery. Currently lying in bed with no reports of chest pain, shortness of breath, or palpitatio ns. Patient is afebrile. No reports of nausea or vomiting noted. 06/05/2020 patient is seen and evaluated in follow-up status post left ankle fracture repair postop day #1. patient continues to have some discomfort but states it is being managed. orthopedic surgery and cardiology following. Patient will resume Eliquis this evening and will monitor closely. hemoglobin today is 7.9 with no active bleeding noted. Per nursing staff patient's dressing was saturated with some sanguinous fluid and dressings were replaced. Patient did have some fracture blisters prior to the procedure. Patient is to work with physical therapy and the plan is to be discharged once stabilized to [facility]. she denies any chest pain, shortness of breath, or palpitations. Patient is afebrile. No reports of nausea or vomiting and patient is tolerating diet. patient is to continue with strict nonweightbearing of that left lower extremity. Discussed with the patient at length about the nonweightbearing and patient verbalized understanding. will repeat a.m. labs and monitor vital signs closely. Objective - Vital Signs Vital signs: Vital Signs Temp 97.6 F 06/05/20 11:44 Pulse 82 06/05/20 11:44 Resp 18 06/05/20 11:44 BP 125/65 06/05/20 11:44 Pulse Ox 96 06/05/20 11:44 Intake & Output 06/04/20 06/05/20 06/05/20 18:59 06:59 18:59 Intake Total 450 1580 750 Output Total 530 600 700 Balance -80 980 50 Intake: IV 450 Intake, IV Titration 500 Amount Lactated Ringers 1,000 ml 400 @ 100 mls/hr IV .Q10H [facility] Rx#:[id number] ceFAZolin 2 gm In Sodium 100 Chloride 0.9% 50 ml @ 100 mls/hr IVPB Q8H [facility] Rx#: [id number] Oral 1080 750 Output: Urine 500 600 700 Estimated Blood Loss 30 Other: Voiding Method Urinal Urinal # Voids 3 1 - Exam GENERAL: Patient is very hard of hearing, not in any acute distress. well- developed, well-nourished. HEENT: Pupils are round and equally reacting to light. EOMI. No conjunctival pallor. CARDIOVASCULAR: Irregularly irregular. No additional sounds. PULMONARY: Diminished breath sounds bilaterally with no wheeze or crackles noted. ABDOMEN: Soft, nontender, nondistended, normoactive bowel sounds. No palpable organomegaly. EXTREMITIES: No cyanosis, clubbing, or pedal edema. Left lower extremity continues to be wrapped with the splint and Kirk wrap continues to have decreased sensation of the left toes although is able to wiggle them. Cap Refill less than 3 and toes are pink and warm to the touch NEUROLOGICAL: Gross neurological examination did not reveal any focal deficits. - Labs CBC & Chem 7: 06/05/20 08:06/05/20 08:13 Labs: Abnormal Lab Results - Last 24 Hours (Table) 06/04/20 06/04/20 06/05/20 Range/Units 16:50 20:45 07:09 RBC (4.30-5.90) m/uL Hgb (13.0-17.5) gm/dL Hct (39.0-53.0) % MCH (25.0-35.0) pg MCHC (31.0-37.0) g/dL RDW (11.5-15.5) % Plt Count (150-450) k/uL Lymphocytes # (1.0-4.8) k/uL Chloride (98-107) mmol/L BUN (9-20) mg/dL Glucose (74-99) mg/dL POC Glucose (mg/dL) 208 H 250 H 205 H (75-99) mg/dL 06/05/20 06/05/20 06/05/20 Range/Units 08:13 08:13 11:17 RBC 3.23 L (4.30-5.90) m/uL Hgb 7.9 L (13.0-17.5) gm/dL Hct 27.1 L (39.0-53.0) % MCH 24.5 L (25.0-35.0) pg MCHC 29.2 L (31.0-37.0) g/dL RDW 18.1 H (11.5-15.5) % Plt Count 126 L (150-450) k/uL Lymphocytes # 0.7 L (1.0-4.8) k/uL Chloride 108 H (98-107) mmol/L BUN 25 H (9-20) mg/dL Glucose 192 H (74-99) mg/dL POC Glucose (mg/dL) 265 H (75-99) mg/dL Assessment and Plan Assessment: Acute Left ankle fracture status post open reduction and internal fixation postop day #1 Hyperkalemia, improved Anemia- unknown baseline Thrombocytopenia- unknown baseline Atrial fibrillation persistent-rate controlled-on anticoagulation with apixaban Coronary artery disease Type 2 diabetes mellitus- poorly controlled Congestive heart failure- unknown ejection fraction Hypertension Hyperlipidemia Severe peripheral artery disease Peripheral neuropathy Gait instability Former nicotine dependence Full code GI prophylaxis: Pepcid DVT prophylaxis: Eliquis PLAN: Continue current medications, management, and symptomatic treatment. Patient underwent open reduction and internal fixation of the trimalleolar fracture dislocation of the left ankle with plating of the distal fibula and screw fixation of the medial malleolus and syndesmosis with Dr. Angel postop day #1. will resume anticoagulant this evening PT/OT to evaluate the patient and continue strict nonweightbearing of the left lower extremity. Will repeat a.m. labs. Further recommendations to follow depending on the progress of the patient. Case management and social work following as patient as patient will be discharged to [facility] once stabilized and discharged.
[2020-06-05 17:02] LABS: Glucose,Whole Blood 252 mg/dL (75-99)
[2020-06-05] MEDS: SACUBITRIL/VALSARTAN 24 MG-26 MG TABLET PO SCH (22:07)
[2020-06-05] MEDS: TAMSULOSIN 0.4 MG CAP.ER.24H PO SCH (22:07)
[2020-06-05] MEDS: ATORVASTATIN 80 MG TAB PO SCH (22:07)
[2020-06-05] MEDS: APIXABAN 5 MG TAB PO SCH (22:07)
[2020-06-05 22:29] LABS: Glucose,Whole Blood 263 mg/dL (75-99)
[2020-06-06] MEDS: ACETAMINOPHEN TAB 500 MG TAB PO SCH ×4 (01:07→23:20)
[2020-06-06 07:07] LABS: Glucose,Whole Blood 246 mg/dL (75-99)
[2020-06-06 08:09] LABS: Anisocytosis Slight; Basophils # (A) 0.1 k/uL (0-0.2); Basophils % (A) 1 %; Eosinophils # (A) 0.1 k/uL (0-0.7); Eosinophils % (A) 2 %; HCT 26.7 % (39.0-53.0); HGB 7.9 gm/dL (13.0-17.5); Hypochromasia Marked; Lymphocytes # (A) 0.8 k/uL (1.0-4.8); Lymphocytes % (A) 12 %; MCH 24.6 pg (25.0-35.0); MCHC 29.5 g/dL (31.0-37.0); MCV 83.6 fL (80.0-100.0); Mean Platelet Volume 8.8; Microcytosis Slight; Monocytes # (A) 0.4 k/uL (0-1.0); Monocytes % (A) 6 %; Neutrophils # (A) 4.9 k/uL (1.3-7.7); Neutrophils % (A) 78 %; Platelet Count 129 k/uL (150-450); RBC 3.19 m/uL (4.30-5.90); RDW 18.6 % (11.5-15.5); WBC 6.3 k/uL (3.8-10.6)
[2020-06-06 08:21] LABS: Calcium 8.5 mg/dL (8.4-10.2)
[2020-06-06 08:22] LABS: Potassium 4.7 mmol/L (3.5-5.1)
[2020-06-06] MEDS: SENNOSIDES-DOCUSATE SODIUM 1 EACH TAB PO PRN ×2 (10:01→20:00)
[2020-06-06] MEDS: FAMOTIDINE 20 MG TAB PO SCH ×2 (10:02→20:00)
[2020-06-06] MEDS: APIXABAN 5 MG TAB PO SCH ×2 (10:02→20:00)
[2020-06-06] MEDS: CHOLECALCIFEROL 1,000 UNIT TAB PO SCH (10:02)
[2020-06-06] MEDS: METOPROLOL TARTRATE 25 MG TAB PO SCH ×2 (10:02→20:00)
[2020-06-06] MEDS: ASPIRIN 81 MG PO SCH (10:03)
[2020-06-06] MEDS: INSULIN ASPART (NovoLOG) 100 UNIT/ML VIAL SQ SCH ×4 (10:03→21:49)
[2020-06-06] MEDS: SACUBITRIL/VALSARTAN 24 MG-26 MG TABLET PO SCH ×2 (10:04→20:01)
[2020-06-06] MEDS: AMIODARONE 100 MG TAB PO SCH (10:04)
[2020-06-06] MEDS: LACTATED RINGERS 1,000 ML IV SCH ×2 (10:56)
[2020-06-06 11:17] LABS: Glucose,Whole Blood 452 mg/dL (75-99)
--- NOTE | 2020-06-06 13:11 | P.PN ---
Subjective Progress Note Date: 06/06/20 Principal diagnosis: S/P ORIF left ankle fracture Patient is a pleasant 79-year-old male seen at bedside this morning. He is postop day #2 from ORIF of left trimalleolar ankle fracture. He has some pain at the surgical site as expected. He has been in a bulky splint and strict nonweightbearing left lower extremity. He denies any new complaints such as new numbness or tingling, calf pain, fever, chills, chest pain or shortness of breath. He is pending rehab placement or transfer to home on Monday. Objective - Vital Signs Vital signs: Vital Signs Temp 97.5 F L 06/06/20 11:42 Pulse 101 H 06/06/20 11:42 Resp 17 06/06/20 11:42 BP 103/62 06/06/20 11:42 Pulse Ox 96 06/06/20 11:42 Intake & Output 06/05/20 06/06/20 06/06/20 18:59 06:59 18:59 Intake Total 750 1000 Output Total 700 Balance 50 1000 Intake: Intake, IV Titration 1000 Amount Lactated Ringers 1,000 ml 1000 @ 100 mls/hr IV .Q10H [facility] Rx#:[id number] Oral 750 Output: Urine 700 Other: Voiding Method Urinal Urinal # Voids 1 1 # Bowel Movements 0 - Exam Inspection of the left lower extremity shows a well fitting bulky splint in place. No evidence of active bleeding or drainage. No skin breakdown or ulcerations at the proximal or distal portions of the splint. All toes are visible. He has active motor in all toes as well as sensation to touch. He has less than 2 second capillary refill present. - Constitutional General appearance: Present: no acute distress - Labs CBC & Chem 7: 06/06/20 07:48 06/06/20 07:48 Labs: Abnormal Lab Results - Last 24 Hours (Table) 06/05/20 06/05/20 06/06/20 Range/Units 16:57 22:25 07:06 RBC (4.30-5.90) m/uL Hgb (13.0-17.5) gm/dL Hct (39.0-53.0) % MCH (25.0-35.0) pg MCHC (31.0-37.0) g/dL RDW (11.5-15.5) % Plt Count (150-450) k/uL Lymphocytes # (1.0-4.8) k/uL Sodium (137-145) mmol/L BUN (9-20) mg/dL Glucose (74-99) mg/dL POC Glucose (mg/dL) 252 H 263 H 246 H (75-99) mg/dL 06/06/20 06/06/20 06/06/20 Range/Units 07:48 07:48 11:15 RBC 3.19 L (4.30-5.90) m/uL Hgb 7.9 L (13.0-17.5) gm/dL Hct 26.7 L (39.0-53.0) % MCH 24.6 L (25.0-35.0) pg MCHC 29.5 L (31.0-37.0) g/dL RDW 18.6 H (11.5-15.5) % Plt Count 129 L (150-450) k/uL Lymphocytes # 0.8 L (1.0-4.8) k/uL Sodium 135 L (137-145) mmol/L BUN 24 H (9-20) mg/dL Glucose 232 H (74-99) mg/dL POC Glucose (mg/dL) 452 H (75-99) mg/dL Assessment and Plan (1) Trimalleolar fracture of ankle, closed Narrative/Plan: The proximal posterior portion of the splint was trimmed some due to an edge that was not protected with padding that was causing him some irritation. He'll continue with routine postop orthopedic protocol including pain management, splint care, physical therapy where he is strict nonweightbearing, DVT prophylaxis and medical management. Expect that he will transfer to home or rehab this coming Monday. Current Visit: Yes Status: Acute Priority: Medium Code(s): S82.853A - DISPLACED TRIMALLEOLAR FRACTURE OF UNSP LOWER LEG, INIT SNOMED Code(s): 5471956 Time with Patient: Less than 30
--- NOTE | 2020-06-06 16:21 | PN ---
PROGRESS NOTE DATE OF SERVICE: 06/06/2020 This 79-year-old gentleman admitted after left ankle fusion surgery, is being closely monitored at this time. Blood sugar is elevated more than 450. The patient complaining of severe pain. Patient mildly confused and PT/OT evaluating the patient for possible ECF rehab. Past medical history reviewed. REVIEW OF SYSTEMS: CARDIOVASCULAR SYSTEM: No angina or palpitations. RESPIRATION: As mentioned earlier. GI as mentioned earlier. : No nausea or vomiting. CURRENT MEDICATIONS: Reviewed and include: 1. Tylenol p.r.n. 2. [place] 5 mg. 3. Cordarone. 4. Eliquis. 5. Aspirin. 6. Lipitor. 7. Vitamin D3. 8. Pepcid. 9. Flonase. 10.Dilaudid. 11.NovoLog. 12.Lopressor. 13.Narcan. 14.Entresto. 15.Flomax. 16.Restoril. 17.Doses reviewed. PHYSICAL EXAM: Patient is alert, oriented times three. Pulse is 101. Blood pressure 106/62. Respirations 17, temperature 97.4, pulse ox 96 percent on room air. HEENT: Conjunctivae normal. NECK: No jugular venous distention. CARDIOVASCULAR: S1, S2 muffled. RESPIRATION: Breath sounds diminished in the bases. No rhonchi. No crackles. ABDOMEN: Soft, nontender. LEGS status post left ankle arthroplasty. NERVOUS SYSTEM: No focal deficits. LABS: Hemoglobin 7.9, platelets are 110. Sodium 135, glucose is 452. ASSESSMENT: 1. Acute left ankle fracture status post ORIF. 2. Diabetes mellitus type 2, uncontrolled. 3. Hyperkalemia, improved. 4. Hyponatremia. 5. Anemia, normocytic of unknown etiology, baseline. 6. Thrombocytopenia of unknown etiology baseline. 7. Atrial fibrillation persistent rate controlled on apixaban anticoagulation. 8. Coronary artery disease. 9. Diabetes mellitus type 2 history. 10.History of congestive heart failure, ejection fraction unknown. 11.History of hypertension. 12.Hyperlipidemia. 13.History of peripheral vascular disease. 14.Peripheral neuropathy. 15.Gait dysfunction. 16.History of nicotine dependence. 17.FULL CODE. RECOMMENDATIONS AND DISCUSSION: In this 79-year-old gentleman who presented with multiple complex medical issues, we will monitor the patient closely, continue the current medications. Symptomatic treatment. Continue with Eliquis. Monitor hemoglobin closely. Monitor labs closely. PT/OT evaluation. Possible ECF rehab. The blood sugars are significantly elevated. Hemoglobin A1c is not available. The patient was taking 70/30 10 units t.i.d. at home. We will initiate the same medications and if the patient is not feeling better, I would recommend IV insulin drip. Discontinue the lactated Ringers. See orders for details. MMODL / IJN: [id number] /
[2020-06-06 17:27] LABS: Glucose,Whole Blood 337 mg/dL (75-99)
[2020-06-06] MEDS: INSULN ASP PRT/INSULIN ASPART 100 UNIT/ML 10 ML VIAL SQ SCH ×2 (18:05→18:08)
[2020-06-06] MEDS: TAMSULOSIN 0.4 MG CAP.ER.24H PO SCH (20:00)
[2020-06-06] MEDS: ATORVASTATIN 80 MG TAB PO SCH (20:00)
[2020-06-06] MEDS: SODIUM CHLORIDE 0.9% 1,000 ML IV SCH ×2 (20:07→23:26)
[2020-06-06 21:26] LABS: Glucose,Whole Blood 247 mg/dL (75-99)
[2020-06-07 07:00] LABS: Glucose,Whole Blood 215 mg/dL (75-99)
[2020-06-07] MEDS: INSULN ASP PRT/INSULIN ASPART 100 UNIT/ML 10 ML VIAL SQ SCH ×3 (08:31→18:04)
[2020-06-07] MEDS: METOPROLOL TARTRATE 25 MG TAB PO SCH ×2 (08:31→21:02)
[2020-06-07] MEDS: INSULIN ASPART (NovoLOG) 100 UNIT/ML VIAL SQ SCH ×4 (08:31→21:01)
[2020-06-07] MEDS: APIXABAN 5 MG TAB PO SCH ×2 (08:32→21:01)
[2020-06-07] MEDS: ACETAMINOPHEN TAB 500 MG TAB PO SCH ×3 (08:32→23:49)
[2020-06-07] MEDS: FAMOTIDINE 20 MG TAB PO SCH ×2 (08:32→21:01)
[2020-06-07] MEDS: ASPIRIN 81 MG PO SCH (08:32)
[2020-06-07] MEDS: AMIODARONE 100 MG TAB PO SCH (08:32)
[2020-06-07] MEDS: SACUBITRIL/VALSARTAN 24 MG-26 MG TABLET PO SCH ×2 (08:33→21:02)
[2020-06-07 09:45] LABS: Anisocytosis Slight; Basophils % (A) 1 %; Eosinophils # (A) 0.1 k/uL (0-0.7); Eosinophils % (A) 2 %; HCT 25.8 % (39.0-53.0); HGB 7.5 gm/dL (13.0-17.5); Hypochromasia Marked; Lymphocytes # (A) 0.8 k/uL (1.0-4.8); Lymphocytes % (A) 16 %; MCH 23.9 pg (25.0-35.0); MCHC 28.9 g/dL (31.0-37.0); MCV 82.8 fL (80.0-100.0); Mean Platelet Volume 8.9; Microcytosis Slight; Monocytes # (A) 0.3 k/uL (0-1.0); Monocytes % (A) 6 %; Neutrophils # (A) 3.7 k/uL (1.3-7.7); Neutrophils % (A) 74 %; Platelet Count 131 k/uL (150-450); RBC 3.12 m/uL (4.30-5.90); RDW 18.3 % (11.5-15.5)
[2020-06-07 10:01] LABS: Calcium 8.3 mg/dL (8.4-10.2); Potassium 4.7 mmol/L (3.5-5.1)
[2020-06-07 11:54] LABS: Glucose,Whole Blood 247 mg/dL (75-99)
[2020-06-07] MEDS: CHOLECALCIFEROL 1,000 UNIT TAB PO SCH (12:36)
--- NOTE | 2020-06-07 13:45 | P.PN ---
Subjective Progress Note Date: 06/07/20 Principal diagnosis: S/P ORIF left ankle fracture Patient is a pleasant 79-year-old male seen at bedside this morning. He is postop day #3 from ORIF of left trimalleolar ankle fracture. He has some pain at the surgical site as expected. He has been in a bulky splint and strict nonweightbearing left lower extremity. He denies any new complaints such as new numbness or tingling, calf pain, fever, chills, chest pain or shortness of breath. He is pending rehab placement or transfer to home on Monday. Objective - Vital Signs Vital signs: Vital Signs Temp 97.7 F 06/07/20 12:05 Pulse 85 06/07/20 12:05 Resp 17 06/07/20 12:05 BP 119/69 06/07/20 12:05 Pulse Ox 97 06/07/20 12:05 Intake & Output 06/06/20 06/07/20 06/07/20 18:59 06:59 18:59 Output Total 250 250 Balance -250 -250 Output: Urine 250 250 Other: Voiding Method Urinal Urinal Urinal # Voids 4 2 200 # Bowel Movements 0 - Exam Inspection of the left lower extremity shows a well fitting bulky splint in place. No evidence of active bleeding or drainage. No skin breakdown or ulcerations at the proximal or distal portions of the splint. All toes are visible. He has active motor in all toes as well as sensation to touch. He has less than 2 second capillary refill present in all digits. - Constitutional General appearance: Present: no acute distress - Labs CBC & Chem 7: 06/07/20 09:03 06/07/20 09:03 Labs: Abnormal Lab Results - Last 24 Hours (Table) 06/06/20 06/06/20 06/07/20 Range/Units 17:26 21:21 06:57 RBC (4.30-5.90) m/uL Hgb (13.0-17.5) gm/dL Hct (39.0-53.0) % MCH (25.0-35.0) pg MCHC (31.0-37.0) g/dL RDW (11.5-15.5) % Plt Count (150-450) k/uL Lymphocytes # (1.0-4.8) k/uL Sodium (137-145) mmol/L BUN (9-20) mg/dL Glucose (74-99) mg/dL POC Glucose (mg/dL) 337 H 247 H 215 H (75-99) mg/dL Calcium (8.4-10.2) mg/dL 06/07/20 06/07/20 06/07/20 Range/Units 09:03 09:03 11:52 RBC 3.12 L (4.30-5.90) m/uL Hgb 7.5 L (13.0-17.5) gm/dL Hct 25.8 L (39.0-53.0) % MCH 23.9 L (25.0-35.0) pg MCHC 28.9 L (31.0-37.0) g/dL RDW 18.3 H (11.5-15.5) % Plt Count 131 L (150-450) k/uL Lymphocytes # 0.8 L (1.0-4.8) k/uL Sodium 133 L (137-145) mmol/L BUN 25 H (9-20) mg/dL Glucose 243 H (74-99) mg/dL POC Glucose (mg/dL) 247 H (75-99) mg/dL Calcium 8.3 L (8.4-10.2) mg/dL Assessment and Plan (1) Trimalleolar fracture of ankle, closed Narrative/Plan: He'll continue with routine postop orthopedic protocol including pain management, splint care, physical therapy where he is strict nonweightbearing, DVT prophylaxis and medical management. Expect that he will transfer to home or rehab this coming Monday when okay with internal medicine. I've also requested the nurse monitor the proximal posterior aspect of the splint and skin and pad as necessary. Current Visit: Yes Status: Acute Priority: Medium Code(s): S82.853A - DISPLACED TRIMALLEOLAR FRACTURE OF UNSP LOWER LEG, INIT SNOMED Code(s): 4449598 Time with Patient: Less than 30
--- NOTE | 2020-06-07 17:34 | PN ---
PROGRESS NOTE DATE OF SERVICE: 06/07/2020 This 79-year-old gentleman admitted with left ankle fusion surgery complaining of pain. The patient also mildly confused. Blood sugars more 475. After adjust the medication, blood sugar is improving. Hemoglobin 7.5 at this time. The trending of the hemoglobin shows significant drop from 2015. Past medical history reviewed. REVIEW OF SYSTEMS: CARDIOVASCULAR SYSTEM: No angina. RESPIRATION: As mentioned earlier. GI as mentioned earlier. : No nausea or vomiting. CURRENT MEDICATIONS: Reviewed and include: 1. Tylenol p.r.n. 2. [place] 5 mg. 3. Cordarone. 4. Eliquis. 5. Aspirin. 6. Pepcid. 7. Flonase. 8. Dilaudid. 9. NovoLog. 10.Lopressor. 11.Narcan. 12.Zofran. 13.Senokot-S. 14.Restoril. 15.Flomax. PHYSICAL EXAMINATION: Patient is alert and oriented x2. Pulse 85. Blood pressure 119/60, respirations 17, temperature 97.7, pulse ox 97% on room air. HEENT: Conjunctivae normal. NECK: No JVD. CARDIOVASCULAR: S1, S2 muffled. RESPIRATORY: Breath sounds diminished in the bases. A few scattered rhonchi and crackles. ABDOMEN: Soft, nontender. LEGS: No edema NERVOUS SYSTEM: No focal deficits. LAB DATA: Hemoglobin 7.5, sodium 133, potassium 4.7. Accu-Cheks are noted. ASSESSMENT: 1. Acute left ankle fracture status post ORIF. 2. Diabetes mellitus type 2, uncontrolled with hyperglycemia. 3. Hyperkalemia, improved. 4. Anemia, normocytic anemia of chronic disease of undetermined etiology baseline. 5. Hyponatremia. 6. Thrombocytopenia undetermined etiology. 7. Atrial fibrillation persistent rate control on apixaban anticoagulation. 8. History of coronary artery disease. 9. Diabetes mellitus type 2 history. 10.History of congestive heart failure, ejection fraction unknown. 11.Hypertension. 12.History of peripheral vascular disease. 13.History of peripheral neuropathy. 14.Gait dysfunction. 15.History of nicotine dependence. 16.FULL CODE. RECOMMENDATIONS AND DISCUSSION: This 79-year-old gentleman who presented with multiple complex medical issues, we will monitor the patient closely, continue the current medications, symptomatic treatment. Otherwise, at this time, I recommend continue with current medications. Add iron sulfate to the abdomen. Otherwise, we will continue to monitor. Prognosis guarded. Further recommendations to follow. MMODL / IJN: [id number] /
[2020-06-07 17:35] LABS: Glucose,Whole Blood 172 mg/dL (75-99)
[2020-06-07] MEDS: FERROUS SULFATE 325 MG TAB PO SCH (18:04)
[2020-06-07 20:41] LABS: Glucose,Whole Blood 154 mg/dL (75-99)
[2020-06-07] MEDS: ATORVASTATIN 80 MG TAB PO SCH (21:01)
[2020-06-07] MEDS: TAMSULOSIN 0.4 MG CAP.ER.24H PO SCH (21:02)
[2020-06-07] MEDS: TEMAZEPAM 15 MG CAP PO PRN (23:49)
[2020-06-08] MEDS: SODIUM CHLORIDE 0.9% 1,000 ML IV SCH (00:43)
[2020-06-08 06:55] LABS: Anisocytosis Slight; Basophils % (A) 1 %; Eosinophils # (A) 0.2 k/uL (0-0.7); Eosinophils % (A) 3 %; HCT 25.9 % (39.0-53.0); HGB 7.8 gm/dL (13.0-17.5); Hypochromasia Marked; Lymphocytes % (A) 20 %; MCH 24.8 pg (25.0-35.0); MCHC 30.1 g/dL (31.0-37.0); MCV 82.1 fL (80.0-100.0); Mean Platelet Volume 8.5; Microcytosis Slight; Monocytes # (A) 0.3 k/uL (0-1.0); Monocytes % (A) 6 %; Neutrophils # (A) 3.6 k/uL (1.3-7.7); Neutrophils % (A) 69 %; Platelet Count 155 k/uL (150-450); RBC 3.15 m/uL (4.30-5.90); RDW 18.2 % (11.5-15.5); WBC 5.2 k/uL (3.8-10.6)
[2020-06-08 06:59] LABS: Glucose,Whole Blood 147 mg/dL (75-99)
[2020-06-08 07:12] LABS: Calcium 8.3 mg/dL (8.4-10.2); Potassium 4.5 mmol/L (3.5-5.1)
[2020-06-08] MEDS: APIXABAN 5 MG TAB PO SCH ×2 (08:00→20:53)
[2020-06-08] MEDS: FERROUS SULFATE 325 MG TAB PO SCH ×2 (08:01→17:47)
[2020-06-08] MEDS: INSULN ASP PRT/INSULIN ASPART 100 UNIT/ML 10 ML VIAL SQ SCH ×3 (08:01→17:48)
[2020-06-08] MEDS: ACETAMINOPHEN TAB 500 MG TAB PO SCH ×3 (08:01→23:04)
[2020-06-08] MEDS: INSULIN ASPART (NovoLOG) 100 UNIT/ML VIAL SQ SCH ×4 (08:01→21:03)
[2020-06-08] MEDS: ASPIRIN 81 MG PO SCH (08:02)
[2020-06-08] MEDS: AMIODARONE 100 MG TAB PO SCH (08:02)
[2020-06-08] MEDS: METOPROLOL TARTRATE 25 MG TAB PO SCH ×2 (08:02→20:53)
[2020-06-08] MEDS: FAMOTIDINE 20 MG TAB PO SCH ×2 (08:02→20:53)
[2020-06-08] MEDS: CHOLECALCIFEROL 1,000 UNIT TAB PO SCH (08:03)
[2020-06-08] MEDS: SACUBITRIL/VALSARTAN 24 MG-26 MG TABLET PO SCH ×2 (08:03→20:53)
[2020-06-08 11:02] LABS: Glucose,Whole Blood 195 mg/dL (75-99)
--- NOTE | 2020-06-08 12:23 | P.PN ---
Subjective Progress Note Date: 06/08/20 This is a 79-year-old male who is admitted for left ankle fracture. Patient is status post ORIF of the left ankle. This is postoperative day #4 and patient is seen and evaluated at bedside with Dr David Agnel. Patient denies any pain in the left ankle or any new complaints today. Objective - Vital Signs Vital signs: Vital Signs Temp 97.6 F 06/08/20 05:05 Pulse 82 06/08/20 05:05 Resp 18 06/08/20 05:05 BP 108/56 06/08/20 05:05 Pulse Ox 99 06/08/20 05:05 Intake & Output 06/07/20 06/08/20 06/08/20 18:59 06:59 18:59 Intake Total 560 1260 100 Output Total 250 600 Balance 310 660 100 Weight 90.5 kg Intake: Intake, IV Titration 80 100 Amount Sodium Chloride 0.9% 1, 80 100 000 ml @ 20 mls/hr IV . Q24H [facility] Rx#:[id number] Oral 560 1180 Output: Urine 250 600 Other: Voiding Method Urinal Urinal Urinal # Voids 6 2 - Exam On exam patient is lying comfortably in bed in no acute distress. Patient is alert and oriented x3. Splint is removed. Incisions are clean, dry and intact. There is a healing blister to the medial aspect of the left ankle. There is redness over the left heel. The left lower extremity is warm and well perfused. - Labs CBC & Chem 7: 06/08/20 06:34 06/08/20 06:34 Labs: Abnormal Lab Results - Last 24 Hours (Table) 06/07/20 06/07/20 06/08/20 Range/Units 17:33 20:38 06:34 RBC 3.15 L (4.30-5.90) m/uL Hgb 7.8 L (13.0-17.5) gm/dL Hct 25.9 L (39.0-53.0) % MCH 24.8 L (25.0-35.0) pg MCHC 30.1 L (31.0-37.0) g/dL RDW 18.2 H (11.5-15.5) % Sodium (137-145) mmol/L Chloride (98-107) mmol/L BUN (9-20) mg/dL Glucose (74-99) mg/dL POC Glucose (mg/dL) 172 H 154 H (75-99) mg/dL Calcium (8.4-10.2) mg/dL 06/08/20 06/08/20 06/08/20 Range/Units 06:34 06:58 11:00 RBC (4.30-5.90) m/uL Hgb (13.0-17.5) gm/dL Hct (39.0-53.0) % MCH (25.0-35.0) pg MCHC (31.0-37.0) g/dL RDW (11.5-15.5) % Sodium 136 L (137-145) mmol/L Chloride 108 H (98-107) mmol/L BUN 26 H (9-20) mg/dL Glucose 124 H (74-99) mg/dL POC Glucose (mg/dL) 147 H 195 H (75-99) mg/dL Calcium 8.3 L (8.4-10.2) mg/dL Assessment and Plan (1) Diabetes mellitus Current Visit: Yes Status: Acute Code(s): E11.9 - TYPE 2 DIABETES MELLITUS WITHOUT COMPLICATIONS SNOMED Code(s): 09395921 (2) Fall Current Visit: Yes Status: Acute Code(s): W19.XXXA - UNSPECIFIED FALL, INITIAL ENCOUNTER SNOMED Code(s): 3160007 (3) Fracture of distal fibula Current Visit: Yes Status: Acute Code(s): S82.839A - OTH FRACTURE OF UPPER AND LOWER END OF UNSP FIBULA, INIT SNOMED Code(s): 609164825 (4) Charcot foot due to diabetes mellitus Current Visit: Yes Status: Acute Code(s): E11.610 - TYPE 2 DIABETES MELLITUS W DIABETIC NEUROPATHIC ARTHROPATHY SNOMED Code(s): 031489297 Plan: 1. Strictly nonweightbearing to the left lower extremity. Keep splint clean, dry and intact. 2. Eliquis per internal medicine. 3. Continue routine postoperative care and pain control. 4. Obtaining a boot for the left lower extremity. Will plan to take down splint and replace with boot tomorrow morning. 5. Discharge planning after patient obtains boot.
--- NOTE | 2020-06-08 15:49 | P.PN ---
Subjective Progress Note Date: 06/08/20 Principal diagnosis: This is a 79-year-old male who was recently admitted with a left ankle fracture and underwent fusion and ORIF with orthopedic surgery and is being closely pastor tored. Blood sugars are being closely monitored and adjustments have been made in medications. Will continue to monitor closely. Patient being evaluated and followed by orthopedic surgery and awaiting special boot for the left lower extremity prior to discharge to [facility]. Case management and social work following and working with discharge planning needs. Hemoglobin is 7.8 today with no active bleeding noted. Patient denies any chest pain, shortness of breath, or palpitations. Patient is afebrile. No reports of nausea or vomiting and patient is tolerating diet. Objective - Vital Signs Vital signs: Vital Signs Temp 97.6 F 06/08/20 12:17 Pulse 89 06/08/20 12:17 Resp 18 06/08/20 12:17 BP 98/55 06/08/20 12:17 Pulse Ox 98 06/08/20 12:17 Intake & Output 06/07/20 06/08/20 06/08/20 18:59 06:59 18:59 Intake Total 560 1260 100 Output Total 250 600 Balance 310 660 100 Weight 90.5 kg Intake: Intake, IV Titration 80 100 Amount Sodium Chloride 0.9% 1, 80 100 000 ml @ 20 mls/hr IV . Q24H [facility] Rx#:[id number] Oral 560 1180 Output: Urine 250 600 Other: Voiding Method Urinal Urinal Urinal # Voids 6 2 - Exam GENERAL: Patient is very hard of hearing, not in any acute distress. well- developed, well-nourished. Temp is 97.6F, pulse is 82, respirations are 18, blood pressure is 108/56, oxygen saturation is 99% on room air. HEENT: Pupils are round and equally reacting to light. EOMI. No conjunctival pallor. CARDIOVASCULAR: S1, S2 are muffled. No additional sounds. PULMONARY: Diminished breath sounds bilaterally with no wheeze or crackles noted. ABDOMEN: Soft, nontender, nondistended, normoactive bowel sounds. No palpable organomegaly. EXTREMITIES: No cyanosis, clubbing, or pedal edema. Left lower extremity continues to be wrapped with the splint and Kirk wrap continues to have decreased sensation of the left toes although is able to wiggle them. Cap Refill less than 3 and toes are pink and warm to the touch NEUROLOGICAL: Gross neurological examination did not reveal any focal deficits. - Labs CBC & Chem 7: 06/08/20 06:34 06/08/20 06:34 Labs: Abnormal Lab Results - Last 24 Hours (Table) 06/07/20 06/07/20 06/08/20 Range/Units 17:33 20:38 06:34 RBC 3.15 L (4.30-5.90) m/uL Hgb 7.8 L (13.0-17.5) gm/dL Hct 25.9 L (39.0-53.0) % MCH 24.8 L (25.0-35.0) pg MCHC 30.1 L (31.0-37.0) g/dL RDW 18.2 H (11.5-15.5) % Sodium (137-145) mmol/L Chloride (98-107) mmol/L BUN (9-20) mg/dL Glucose (74-99) mg/dL POC Glucose (mg/dL) 172 H 154 H (75-99) mg/dL Calcium (8.4-10.2) mg/dL 06/08/20 06/08/20 06/08/20 Range/Units 06:34 06:58 11:00 RBC (4.30-5.90) m/uL Hgb (13.0-17.5) gm/dL Hct (39.0-53.0) % MCH (25.0-35.0) pg MCHC (31.0-37.0) g/dL RDW (11.5-15.5) % Sodium 136 L (137-145) mmol/L Chloride 108 H (98-107) mmol/L BUN 26 H (9-20) mg/dL Glucose 124 H (74-99) mg/dL POC Glucose (mg/dL) 147 H 195 H (75-99) mg/dL Calcium 8.3 L (8.4-10.2) mg/dL Assessment and Plan Assessment: Acute Left ankle fracture status post ORIF Diabetes mellitus type 2, uncontrolled with hyperglycemia Hyperkalemia, improved Anemia, Normocytic anemia of chronic disease of undetermined etiology baseline Thrombocytopenia Undetermined etiology Atrial fibrillation persistent-rate controlled-on anticoagulation with apixaban History of Coronary artery disease Diabetes mellitus type 2 history History of Congestive heart failure, Ejection fraction unknown Hypertension Hyperlipidemia History of peripheral vascular disease History of peripheral neuropathy Gait Dysfunction History of nicotine dependence Full code GI prophylaxis: Pepcid DVT prophylaxis: Eliquis PLAN: Continue current medications, management, and symptomatic treatment. Patient underwent ORIF with orthopedic surgery. continue strict nonweightbearing of the left lower extremity. Will repeat a.m. labs. Further recommendations to follow depending on the progress of the patient. Case management and social work follow ing as patient as patient will be discharged to [facility] bed once stabilized and discharged. Patient awaiting to receive a special boot for the left lower extremity prior to discharge. Orthopedic surgery following closely. Patient is maintained on Eliquis. Possible discharge in 24 hours
[2020-06-08 17:14] LABS: Glucose,Whole Blood 232 mg/dL (75-99)
[2020-06-08] MEDS: ATORVASTATIN 80 MG TAB PO SCH (20:53)
[2020-06-08] MEDS: SENNOSIDES-DOCUSATE SODIUM 1 EACH TAB PO PRN (20:53)
[2020-06-08] MEDS: TEMAZEPAM 15 MG CAP PO PRN (20:53)
[2020-06-08] MEDS: TAMSULOSIN 0.4 MG CAP.ER.24H PO SCH (20:53)
[2020-06-08 20:57] LABS: Glucose,Whole Blood 224 mg/dL (75-99)
[2020-06-09] MEDS: SODIUM CHLORIDE 0.9% 1,000 ML IV SCH (00:25)
[2020-06-09 07:14] LABS: Glucose,Whole Blood 145 mg/dL (75-99)
[2020-06-09] MEDS: INSULIN ASPART (NovoLOG) 100 UNIT/ML VIAL SQ SCH ×4 (08:14→20:30)
[2020-06-09] MEDS: FERROUS SULFATE 325 MG TAB PO SCH ×2 (08:15→17:58)
[2020-06-09] MEDS: METOPROLOL TARTRATE 25 MG TAB PO SCH ×2 (08:15→20:30)
[2020-06-09] MEDS: FAMOTIDINE 20 MG TAB PO SCH ×2 (08:15→20:30)
[2020-06-09] MEDS: SACUBITRIL/VALSARTAN 24 MG-26 MG TABLET PO SCH ×2 (08:15→20:54)
[2020-06-09] MEDS: ASPIRIN 81 MG PO SCH (08:15)
[2020-06-09] MEDS: ACETAMINOPHEN TAB 500 MG TAB PO SCH ×3 (08:15→23:38)
[2020-06-09] MEDS: CHOLECALCIFEROL 1,000 UNIT TAB PO SCH (08:15)
[2020-06-09] MEDS: APIXABAN 5 MG TAB PO SCH ×2 (08:15→20:30)
[2020-06-09] MEDS: AMIODARONE 100 MG TAB PO SCH (08:15)
[2020-06-09] MEDS: INSULN ASP PRT/INSULIN ASPART 100 UNIT/ML 10 ML VIAL SQ SCH ×3 (08:24→17:59)
[2020-06-09 08:27] LABS: Anisocytosis Slight; Basophils # (A) 0.1 k/uL (0-0.2); Basophils % (A) 1 %; Eosinophils # (A) 0.2 k/uL (0-0.7); Eosinophils % (A) 3 %; HCT 27.6 % (39.0-53.0); HGB 8.1 gm/dL (13.0-17.5); Hypochromasia Marked; Lymphocytes # (A) 0.9 k/uL (1.0-4.8); Lymphocytes % (A) 18 %; MCH 24.6 pg (25.0-35.0); MCHC 29.3 g/dL (31.0-37.0); MCV 84.1 fL (80.0-100.0); Mean Platelet Volume 8.6; Monocytes # (A) 0.2 k/uL (0-1.0); Monocytes % (A) 5 %; Neutrophils # (A) 3.6 k/uL (1.3-7.7); Neutrophils % (A) 71 %; Platelet Count 175 k/uL (150-450); Poikilocytosis Slight; RBC 3.29 m/uL (4.30-5.90); RDW 17.9 % (11.5-15.5); WBC 5.1 k/uL (3.8-10.6)
[2020-06-09 08:56] LABS: Calcium 8.2 mg/dL (8.4-10.2); Potassium 4.5 mmol/L (3.5-5.1)
[2020-06-09 10:04] VITALS: BMI 29.1
[2020-06-09 11:57] LABS: Glucose,Whole Blood 234 mg/dL (75-99)
--- NOTE | 2020-06-09 14:43 | P.PN ---
Subjective Progress Note Date: 06/09/20 This is a 79-year-old male who is admitted for left ankle fracture. Patient is status post ORIF of the left ankle. This is postoperative day #5 and patient is seen and evaluated at bedside. Patient denies any pain in the left ankle or any new complaints today. Objective - Vital Signs Vital signs: Vital Signs Temp 97.5 F L 06/09/20 04:05 Pulse 82 06/09/20 04:05 Resp 16 06/09/20 04:05 BP 147/78 06/09/20 04:05 Pulse Ox 97 06/09/20 04:05 Intake & Output 06/08/20 06/09/20 06/09/20 18:59 06:59 18:59 Intake Total 100 830 Output Total 200 Balance 100 830 -200 Weight 87 kg Intake: Intake, IV Titration 100 240 Amount Sodium Chloride 0.9% 1, 100 240 000 ml @ 20 mls/hr IV . Q24H [facility] Rx#:[id number] Oral 590 Output: Urine 200 Other: Voiding Method Urinal Urinal # Voids 3 2 2 # Bowel Movements 1 0 0 - Exam On exam patient is lying comfortably in bed in no acute distress. Patient is alert and oriented x3. Splint is removed. Incisions are clean, dry and intact. There is a healing blister to the medial aspect of the left ankle. There is redness over the left heel. The left lower extremity is warm and well perfused. - Labs CBC & Chem 7: 06/09/20 07:38 06/09/20 07:38 Labs: Abnormal Lab Results - Last 24 Hours (Table) 06/08/20 06/08/20 06/08/20 Range/Units 11:00 17:03 20:51 RBC (4.30-5.90) m/uL Hgb (13.0-17.5) gm/dL Hct (39.0-53.0) % MCH (25.0-35.0) pg MCHC (31.0-37.0) g/dL RDW (11.5-15.5) % Lymphocytes # (1.0-4.8) k/uL Chloride (98-107) mmol/L BUN (9-20) mg/dL Glucose (74-99) mg/dL POC Glucose (mg/dL) 195 H 232 H 224 H (75-99) mg/dL Calcium (8.4-10.2) mg/dL 06/09/20 06/09/20 06/09/20 Range/Units 07:13 07:38 07:38 RBC 3.29 L (4.30-5.90) m/uL Hgb 8.1 L (13.0-17.5) gm/dL Hct 27.6 L (39.0-53.0) % MCH 24.6 L (25.0-35.0) pg MCHC 29.3 L (31.0-37.0) g/dL RDW 17.9 H (11.5-15.5) % Lymphocytes # 0.9 L (1.0-4.8) k/uL Chloride 108 H (98-107) mmol/L BUN 29 H (9-20) mg/dL Glucose 157 H (74-99) mg/dL POC Glucose (mg/dL) 145 H (75-99) mg/dL Calcium 8.2 L (8.4-10.2) mg/dL Assessment and Plan (1) Diabetes mellitus Current Visit: Yes Status: Acute Code(s): E11.9 - TYPE 2 DIABETES MELLITUS WITHOUT COMPLICATIONS SNOMED Code(s): 18656506 (2) Fall Current Visit: Yes Status: Acute Code(s): W19.XXXA - UNSPECIFIED FALL, INITIAL ENCOUNTER SNOMED Code(s): 7985149 (3) Fracture of distal fibula Current Visit: Yes Status: Acute Code(s): S82.839A - OTH FRACTURE OF UPPER AND LOWER END OF UNSP FIBULA, INIT SNOMED Code(s): 520655598 (4) Charcot foot due to diabetes mellitus Current Visit: Yes Status: Acute Code(s): E11.610 - TYPE 2 DIABETES MELLITUS W DIABETIC NEUROPATHIC ARTHROPATHY SNOMED Code(s): 932998521 Plan: 1. Strictly nonweightbearing to the left lower extremity. Maintain boot. 2. Daily dressing changes and skin checks. Monitor left heel daily. 3. Continue routine postoperative care and pain control. 4. Eliquis per internal medicine. 5. Discharge planning after patient obtains boot.
[2020-06-09 17:13] LABS: Glucose,Whole Blood 198 mg/dL (75-99)
[2020-06-09 20:07] LABS: Glucose,Whole Blood 148 mg/dL (75-99)
[2020-06-09] MEDS: TAMSULOSIN 0.4 MG CAP.ER.24H PO SCH (20:30)
[2020-06-09] MEDS: ATORVASTATIN 80 MG TAB PO SCH (20:30)
[2020-06-09 20:51] VITALS: RESP 16; TEMP 97.6
--- NOTE | 2020-06-09 22:51 | P.PN ---
Subjective Progress Note Date: 06/09/20 Principal diagnosis: This is a 79-year-old male who was recently admitted with a left ankle fracture and underwent fusion and ORIF with orthopedic surgery and is being closely pastor tored. Blood sugars are being closely monitored and adjustments have been made in medications. Will continue to monitor closely. Patient being evaluated and followed by orthopedic surgery and awaiting special boot for the left lower extremity prior to discharge to [facility] bed. Case management and social work following and working with discharge planning needs. Hemoglobin is 7.8 today with no active bleeding noted. Patient denies any chest pain, shortness of breath, or palpitations. Patient is afebrile. No reports of nausea or vomiting and patient is tolerating diet. 06/09/2020 Patient is seen and evaluated in follow up and is being closely monitored. Patient awaiting to receive special ortho boot to aid in maintaining strict non- weightbearing of the left lower extremity. A boot was ordered but found to be too narrow and did not fit properly. Case management aware and working with Avi to order the appropriate boot. Hemoglobin today is 8.1. Creatinine trending down as well. Patient is scheduled to go to [facility] bed once stabilized and discharged. Will repeat am labs and monitor closely. Review of systems: Constitutional: No reports of fatigue, no reports of fevers or chills Cardiovascular: No reports of chest pain or palpitations Respiratory: No reports of shortness of breath, denies cough GI: no reports of nausea with no reports of vomiting : no reports of dysuria or retention Neurovascular: Reports weakness, reports of numbness of the left lower extremity digits Active Medications Acetaminophen (Tylenol Tab) 1,000 mg PO Q8HR [facility] Last Admin: 06/09/20 17:59 Dose: 1,000 mg Documented by: Hydrocodone Bitart/Acetaminophen ([place] 5-325) 1 each PO Q6HR PRN PRN Reason: Pain Scale 1 to 5 Last Admin: 06/06/20 20:10 Dose: 1 each Documented by: Hydrocodone Bitart/Acetaminophen ([place] 5-325) 2 each PO Q6HR PRN PRN Reason: Pain Scale 6 to 10 Last Admin: 06/05/20 12:44 Dose: 2 each Documented by: Amiodarone HCl (Cordarone) 100 mg PO DAILY [facility] Last Admin: 06/09/20 08:15 Dose: 100 mg Documented by: Apixaban (Eliquis) 5 mg PO BID [facility] Last Admin: 06/09/20 20:30 Dose: 5 mg Documented by: Aspirin (Aspirin) 81 mg PO DAILY [facility] Last Admin: 06/09/20 08:15 Dose: 81 mg Documented by: Atorvastatin Calcium (Lipitor) 80 mg PO HS [facility] Last Admin: 06/09/20 20:30 Dose: 80 mg Documented by: Cholecalciferol (Vitamin D3 (25 Mcg = 1000 Iu)) 2,000 unit PO DAILY@1200 [facility] Last Admin: 06/09/20 08:15 Dose: 2,000 unit Documented by: Diphenhydramine HCl (Benadryl) 25 mg PO HS PRN PRN Reason: Insomnia Famotidine (Pepcid) 20 mg PO BID [facility] Last Admin: 06/09/20 20:30 Dose: 20 mg Documented by: Ferrous Sulfate (Feosol) 325 mg PO BID-W/MEALS [facility] Last Admin: 06/09/20 17:58 Dose: 325 mg Documented by: Fluticasone Propionate (Flonase Nasal [place]) 2 spray EA NOSTRIL DAILY PRN PRN Reason: seasonal allergies Hydromorphone HCl (Dilaudid) 0.125 mg IVP Q3HR PRN PRN Reason: Pain Scale 1 to 3 Hydromorphone HCl (Dilaudid) 0.25 mg IVP Q3HR PRN PRN Reason: Pain Scale 4 to 6 Hydromorphone HCl (Dilaudid) 0.5 mg IVP Q3HR PRN PRN Reason: Pain Scale 7 to 10 Last Admin: 06/05/20 17:27 Dose: 0.5 mg Documented by: Sodium Chloride (Saline 0.9%) 1,000 mls @ 20 mls/hr IV .Q24H [facility] Last Admin: 06/09/20 00:25 Dose: Not Given Documented by: Insulin Aspart (Novolog) 0 unit SQ ACHS [facility]; Protocol Last Admin: 06/09/20 20:30 Dose: 1 unit Documented by: Insulin Aspart (Novolog Mix 70-30 Vial) 15 unit SQ AC-TID [facility] Last Admin: 06/09/20 17:59 Dose: 15 unit Documented by: Melatonin (Melatonin) 5 mg PO HS PRN PRN Reason: Insomnia Last Admin: 06/04/20 21:24 Dose: 5 mg Documented by: Metoprolol Tartrate (Lopressor) 25 mg PO BID [facility] Last Admin: 06/09/20 20:30 Dose: 25 mg Documented by: Morphine Sulfate (Morphine Sulfate (Inj)) 4 mg IVP Q4HR PRN PRN Reason: MODERATE Pain Last Admin: 06/05/20 02:57 Dose: 4 mg Documented by: Naloxone HCl (Narcan) 0.2 mg IV Q2M PRN PRN Reason: Opioid Reversal Ondansetron HCl (Zofran) 4 mg IVP Q8H PRN PRN Reason: Nausea And Vomiting Sacubitril/Valsartan (Entresto 24 Mg-26 Mg Tablet) 1 each PO BID [facility] Last Admin: 06/09/20 20:54 Dose: 1 each Documented by: Senna/Docusate Sodium (Senokot-S) 2 each PO HS PRN PRN Reason: Constipation Last Admin: 06/08/20 20:53 Dose: 2 each Documented by: Tamsulosin HCl (Flomax) 0.4 mg PO HS [facility] Last Admin: 06/09/20 20:30 Dose: 0.4 mg Documented by: Temazepam (Restoril) 15 mg PO HS PRN PRN Reason: Insomnia Last Admin: 06/08/20 20:53 Dose: 15 mg Documented by: Objective - Vital Signs Vital signs: Vital Signs Temp 97.5 F L 06/09/20 04:05 Pulse 82 06/09/20 04:05 Resp 16 06/09/20 04:05 BP 147/78 06/09/20 04:05 Pulse Ox 97 06/09/20 04:05 Intake & Output 06/08/20 06/09/20 06/09/20 18:59 06:59 18:59 Intake Total 100 830 Output Total 200 Balance 100 830 -200 Weight 87 kg 87 kg Intake: Intake, IV Titration 100 240 Amount Sodium Chloride 0.9% 1, 100 240 000 ml @ 20 mls/hr IV . Q24H [facility] Rx#:[id number] Oral 590 Output: Urine 200 Other: Voiding Method Urinal Urinal # Voids 3 2 2 # Bowel Movements 1 0 0 - Exam GENERAL: Patient is very hard of hearing, not in any acute distress. well- developed, well-nourished. Temp is 97.5F, pulse is 82, respirations are 18, blood pressure is 147/78, oxygen saturation is 97% on room air. HEENT: Pupils are round and equally reacting to light. EOMI. No conjunctival pallor. CARDIOVASCULAR: S1, S2 are muffled. No additional sounds. PULMONARY: Diminished breath sounds bilaterally with no wheeze or crackles noted. ABDOMEN: Soft, nontender, nondistended, normoactive bowel sounds. No palpable organomegaly. EXTREMITIES: No cyanosis, clubbing, or pedal edema. Left lower extremity continues to be wrapped with the splint and Kirk wrap continues to have decreased sensation of the left toes although is able to wiggle them. Cap Refill less than 3 and toes are pink and warm to the touch NEUROLOGICAL: Gross neurological examination did not reveal any focal deficits. - Labs CBC & Chem 7: 06/09/20 07:38 06/09/20 07:38 Labs: Abnormal Lab Results - Last 24 Hours (Table) 06/08/20 06/08/20 06/08/20 Range/Units 11:00 17:03 20:51 RBC (4.30-5.90) m/uL Hgb (13.0-17.5) gm/dL Hct (39.0-53.0) % MCH (25.0-35.0) pg MCHC (31.0-37.0) g/dL RDW (11.5-15.5) % Lymphocytes # (1.0-4.8) k/uL Chloride (98-107) mmol/L BUN (9-20) mg/dL Glucose (74-99) mg/dL POC Glucose (mg/dL) 195 H 232 H 224 H (75-99) mg/dL Calcium (8.4-10.2) mg/dL 06/09/20 06/09/20 06/09/20 Range/Units 07:13 07:38 07:38 RBC 3.29 L (4.30-5.90) m/uL Hgb 8.1 L (13.0-17.5) gm/dL Hct 27.6 L (39.0-53.0) % MCH 24.6 L (25.0-35.0) pg MCHC 29.3 L (31.0-37.0) g/dL RDW 17.9 H (11.5-15.5) % Lymphocytes # 0.9 L (1.0-4.8) k/uL Chloride 108 H (98-107) mmol/L BUN 29 H (9-20) mg/dL Glucose 157 H (74-99) mg/dL POC Glucose (mg/dL) 145 H (75-99) mg/dL Calcium 8.2 L (8.4-10.2) mg/dL Assessment and Plan Assessment: Acute Left ankle fracture status post ORIF Diabetes mellitus type 2, uncontrolled with hyperglycemia Hyperkalemia, improved Anemia, Normocytic anemia of chronic disease of undetermined etiology baseline Thrombocytopenia Undetermined etiology Atrial fibrillation persistent-rate controlled-on anticoagulation with apixaban History of Coronary artery disease Diabetes mellitus type 2 history History of Congestive heart failure, Ejection fraction unknown Hypertension Hyperlipidemia History of peripheral vascular disease History of peripheral neuropathy Gait Dysfunction History of nicotine dependence Full code GI prophylaxis: Pepcid DVT prophylaxis: Eliquis PLAN: Continue current medications, management, and symptomatic treatment. Patient underwent ORIF with orthopedic surgery. continue strict nonweightbearing of the left lower extremity. Will repeat a.m. labs. Further recommendations to follow depending on the progress of the patient. Case management and social work following as patient as patient will be discharged to [facility] bed once stabilized and discharged. Patient awaiting to receive a special boot for the left lower extremity prior to discharge as the one provided was too narrow and did not fit properly. Orthopedic surgery following closely. Patient is maintained on Eliquis. Anticipate discharge in 24 hours
[2020-06-10] MEDS: SODIUM CHLORIDE 0.9% 1,000 ML IV SCH (02:31)
[2020-06-10 06:56] LABS: Glucose,Whole Blood 123 mg/dL (75-99)
[2020-06-10] MEDS: INSULIN ASPART (NovoLOG) 100 UNIT/ML VIAL SQ SCH (07:22)
[2020-06-10 08:03] LABS: Anisocytosis Slight; Basophils # (A) 0.1 k/uL (0-0.2); Basophils % (A) 1 %; Eosinophils # (A) 0.2 k/uL (0-0.7); Eosinophils % (A) 4 %; HCT 27.1 % (39.0-53.0); Hypochromasia Marked; Lymphocytes # (A) 1.2 k/uL (1.0-4.8); Lymphocytes % (A) 22 %; MCH 24.4 pg (25.0-35.0); MCHC 29.4 g/dL (31.0-37.0); MCV 83.1 fL (80.0-100.0); Mean Platelet Volume 8.2; Microcytosis Slight; Monocytes # (A) 0.3 k/uL (0-1.0); Monocytes % (A) 6 %; Neutrophils # (A) 3.4 k/uL (1.3-7.7); Neutrophils % (A) 65 %; Platelet Count 171 k/uL (150-450); RBC 3.26 m/uL (4.30-5.90); RDW 18.2 % (11.5-15.5); WBC 5.2 k/uL (3.8-10.6)
[2020-06-10 08:08] VITALS: BP 116/67; PULSE 81
[2020-06-10 08:14] LABS: Potassium 4.4 mmol/L (3.5-5.1)
[2020-06-10] MEDS: ACETAMINOPHEN TAB 500 MG TAB PO SCH (08:35)
[2020-06-10] MEDS: CHOLECALCIFEROL 1,000 UNIT TAB PO SCH (08:36)
[2020-06-10] MEDS: FAMOTIDINE 20 MG TAB PO SCH (08:37)
[2020-06-10] MEDS: INSULN ASP PRT/INSULIN ASPART 100 UNIT/ML 10 ML VIAL SQ SCH (08:37)
[2020-06-10] MEDS: ASPIRIN 81 MG PO SCH (08:37)
[2020-06-10] MEDS: METOPROLOL TARTRATE 25 MG TAB PO SCH (08:37)
[2020-06-10] MEDS: FERROUS SULFATE 325 MG TAB PO SCH (08:37)
[2020-06-10] MEDS: AMIODARONE 100 MG TAB PO SCH (08:37)
[2020-06-10] MEDS: APIXABAN 5 MG TAB PO SCH (08:37)
[2020-06-10] MEDS: SACUBITRIL/VALSARTAN 24 MG-26 MG TABLET PO SCH (08:38)
--- NOTE | 2020-06-10 08:56 | P.DS ---
Providers Date of admission: 06/02/20 09:15 Expected date of discharge: 06/10/20 Attending physician: Ann Hurley Consults: 05/31/20 22:03 Consult Physician Routine Consulting Provider: David Angel Consult Reason/Comments: Fracture of Lateral Malleolus Do you want consulting provider notified?: Yes, Notify in am 06/01/20 16:25 Consult Physician Urgent Consulting Provider: Preeti Chandler Consult Reason/Comments: surgical clearance on 06/02/20 Do you want consulting provider notified?: Yes Primary care physician: Blane Salcido MD Hospital Course: Final diagnosis Acute Left ankle fracture status post ORIF Covid 19 ruled out, testing was negative Diabetes mellitus type 2, uncontrolled with hyperglycemia Hyperkalemia, improved Anemia, Normocytic anemia of chronic disease of undetermined etiology baseline Thrombocytopenia Undetermined etiology Atrial fibrillation persistent-rate controlled-on anticoagulation with apixaban History of Coronary artery disease Diabetes mellitus type 2 history History of Congestive heart failure, chronic systolic with most recent ejection 25-30% on 06/01/2020 echo Hypertension Hyperlipidemia History of peripheral vascular disease History of peripheral neuropathy Gait Dysfunction History of nicotine dependence Full code GI prophylaxis: Pepcid DVT prophylaxis Discharge disposition Patient is being discharged in a stable condition with guarded prognosis to [facility] bed. Patient will follow-up with Dr. Blane Salcido upon discharge. Patient also instructed to follow-up with Dr. Dr. Angel and Dr. Lugo in the outpatient setting. Total time taken is greater than 35 minutes. History of present illness This is an 79-year-old male who was recently admitted with a left ankle fracture and underwent fusion with ORIF and was being closely monitored. Patient was seen and evaluated by orthopedic surgery and underwent surgical repair of the left ankle. Patient is to maintain and remain strict nonweightbearing of that left lower extremity. Patient was ultimately fitted for a boot although the boot is too narrow given a splint and per orthopedic surgery patient will continue with the splint at this time and once reevaluated may adjust and fit appropriately for boot. Discussed with patient the importance of strict nonweightbearing as he is at high risk for possible refracture of the left ankle. Patient is maintained on Eliquis 5 mg twice daily. Prescriptions provided for repeat CBC and BMP to monitor kidney functions as well as hemoglobin. Current hemoglobin is 8.0 with no active bleeding noted. Creatinine 1.17, potassium 4.4, sodium is 137. Blood sugars need to be monitored before meals at bedtime and will continue with premeal insulin along with sliding scale as needed. Patient will be following up with cardiology as well in the outpatient setting. Patient will be going to [facility] for continued PT/OT therapy for strength and mobility. Patient had Covid 19 testing during hospitalization which was negative. Currently no reports of chest pain, shortness of breath, or palpitations. Patient is afebrile. No reports of nausea or vomiting and patient is tolerating diet. Guarded prognosis. On exam vital signs are stable. Temp is 97.6F, pulse is 81, respirations are 16, blood pressure is 116/67, oxygen saturation is 94% on room air. Cardio S1, S2 are muffled. Respiratory shows diminished breath sounds at the bases with no wheezing or rhonchi noted. Abdomen is soft and nontender. Nervous system shows no focal deficits. Please refer to medication reconciliation sheet for a list of medications. Patient Condition at Discharge: Stable Plan - Discharge Summary Discharge Rx Participant: No New Discharge Prescriptions: New Amiodarone [Cordarone] 100 mg PO DAILY tab Ferrous Sulfate [Iron (65 MG Elemental)] 325 mg PO BID-W/MEALS tab HYDROcodone/APAP 5-325MG [[place] 5-325] 1 - 2 each PO Q6HR PRN #12 tab PRN Reason: Pain Scale 6 To 10 INSULIN ASPART (NovoLOG) [NovoLOG (formulary)] 0 unit SQ ACHS vial Famotidine [Pepcid] 20 mg PO BID tab Temazepam [Restoril] 15 mg PO HS PRN #3 cap PRN Reason: Insomnia Sennosides-Docusate Sodium [Senokot-S] 2 each PO HS PRN tab PRN Reason: Constipation Continue Aspirin 81 mg PO DAILY Nitroglycerin Sl Tabs [Nitrostat] 0.4 mg SUBLINGUAL Q5M PRN PRN Reason: Chest Pain Cholecalciferol (Vitamin D3) [Vitamin D3] 2,000 unit PO DAILY Tamsulosin HCl [Flomax] 0.4 mg PO HS Apixaban [Eliquis] 5 mg PO BID Nighttime Sleep Aid (Unknown Strength) 1 tab PO HS PRN PRN Reason: Insomnia Metoprolol Tartrate 25 mg PO BID Melatonin 10 mg PO HS Sacubitril/Valsartan [Entresto 24 mg-26 mg Tablet] 1 tab PO BID Fluticasone Nasal [place] [Flonase Nasal [place]] 2 spr EA NOSTRIL DAILY PRN PRN Reason: seasonal allergies Atorvastatin [Lipitor] 80 mg PO HS Acetaminophen [Tylenol] 1,000 mg PO DAILY PRN PRN Reason: Fever And/ Or Pain Clotrimazole/Betameth Cream [Lotrisone] 1 applic TOPICAL BID PRN PRN Reason: Rash Changed Insulin Aspart Protam & Aspart [NovoLOG MIX 70-30 Flexpen] 15 unit SQ AC-TID #0 Discontinued Spironolactone [Aldactone] 25 mg PO DAILY Amiodarone [Cordarone] 200 mg PO DAILY Discharge Medication List Aspirin 81 mg PO DAILY 08/17/15 [History] Nitroglycerin Sl Tabs [Nitrostat] 0.4 mg SUBLINGUAL Q5M PRN 08/17/15 [History] Cholecalciferol (Vitamin D3) [Vitamin D3] 2,000 unit PO DAILY 03/28/18 [History] Tamsulosin HCl [Flomax] 0.4 mg PO HS 03/28/18 [History] Acetaminophen [Tylenol] 1,000 mg PO DAILY PRN 05/31/20 [History] Apixaban [Eliquis] 5 mg PO BID 05/31/20 [History] Atorvastatin [Lipitor] 80 mg PO HS 05/31/20 [History] Clotrimazole/Betameth Cream [Lotrisone] 1 applic TOPICAL BID PRN 05/31/20 [Hist ory] Fluticasone Nasal [place] [Flonase Nasal [place]] 2 spr EA NOSTRIL DAILY PRN 05/31/20 [History] Melatonin 10 mg PO HS 05/31/20 [History] Metoprolol Tartrate 25 mg PO BID 05/31/20 [History] Nighttime Sleep Aid (Unknown Strength) 1 tab PO HS PRN 05/31/20 [History] Sacubitril/Valsartan [Entresto 24 mg-26 mg Tablet] 1 tab PO BID 05/31/20 [History] Amiodarone [Cordarone] 100 mg PO DAILY tab 06/10/20 [Rx] Famotidine [Pepcid] 20 mg PO BID tab 06/10/20 [Rx] Ferrous Sulfate [Iron (65 MG Elemental)] 325 mg PO BID-W/MEALS tab 06/10/20 [Rx] HYDROcodone/APAP 5-325MG [[place] 5-325] 1 - 2 each PO Q6HR PRN #12 tab 06/10/20 [Rx] INSULIN ASPART (NovoLOG) [NovoLOG (formulary)] 0 unit SQ ACHS vial 06/10/20 [Rx] Insulin Aspart Protam & Aspart [NovoLOG MIX 70-30 Flexpen] 15 unit SQ AC-TID #0 06/10/20 [Rx] Sennosides-Docusate Sodium [Senokot-S] 2 each PO HS PRN tab 06/10/20 [Rx] Temazepam [Restoril] 15 mg PO HS PRN #3 cap 06/10/20 [Rx] Follow up Appointment(s)/Referral(s): Rock Lugo MD [STAFF PHYSICIAN] - 2 Weeks Blane Salcido MD [Primary Care Provider] - 1-2 days David Angel DO [Doctor of Osteopathic Medicine] - 2 Weeks Niko &Joel [NON-STAFF] - As Needed Ambulatory/Diagnostic Orders: Basic Metabolic Panel [LAB.AMB] Time Frame: 3 Days, Location: None Selected Complete Blood Count w/diff [LAB.AMB] Time Frame: 2 Days, Location: None Selected Patient Instructions/Handouts: Heart Failure (DC), Type 2 Diabetes in Adults: New Diagnosis (DC) Activity/Diet/Wound Care/Special Instructions: Patient is going to [facility] bed Continue with heart healthy consistent carb diet Continue to monitor blood sugars before meals at bedtime and treat accordingly with sliding scale Follow-up with primary care provider upon discharge Repeat labs in 2-3 days Strictly nonweightbearing to the left lower extremity. Maintain splint. May remove splint for dressing changes. Please keep splint well padded. Please change dressings every day and check skin for breakdown. Monitor left heel for signs of pressure ulcer daily. Keep heel off of the bed when patient is resting. Please take medications as prescribed. Follow up with [facility] and call with any questions or concerns, . Discharge Disposition: TRANSFER TO SNF/ECF
--- NOTE | 2020-06-10 10:12 | P.PN ---
Subjective Progress Note Date: 06/10/20 This is a 79-year-old male who is admitted for left ankle fracture. Patient is status post ORIF of the left ankle. This is postoperative day #6 and patient is seen and evaluated at bedside. Patient denies any pain in the left ankle or any new complaints today. Objective - Vital Signs Vital signs: Vital Signs Temp 97.6 F 06/10/20 04:00 Pulse 81 06/10/20 04:00 Resp 16 06/10/20 04:00 BP 116/67 06/10/20 04:00 Pulse Ox 94 L 06/10/20 04:00 Intake & Output 06/09/20 06/10/20 06/10/20 18:59 06:59 18:59 Intake Total 140 160 Output Total 200 300 Balance -60 -140 Weight 87 kg 93.5 kg Intake: Intake, IV Titration 140 160 Amount Sodium Chloride 0.9% 1, 140 160 000 ml @ 20 mls/hr IV . Q24H [facility] Rx#:[id number] Output: Urine 200 300 Other: Voiding Method Urinal Urinal # Voids 2 2 # Bowel Movements 0 0 - Exam On exam patient is lying comfortably in bed in no acute distress. Patient is alert and oriented x3. Splint is removed. Incisions are clean, dry and intact. There is a healing blister to the medial aspect of the left ankle. There is redness over the left heel. Left heel blanches. The left lower extremity is warm and well perfused. - Labs CBC & Chem 7: 06/10/20 07:28 06/10/20 07:28 Labs: Abnormal Lab Results - Last 24 Hours (Table) 06/09/20 06/09/20 06/09/20 Range/Units 11:36 17:11 20:05 RBC (4.30-5.90) m/uL Hgb (13.0-17.5) gm/dL Hct (39.0-53.0) % MCH (25.0-35.0) pg MCHC (31.0-37.0) g/dL RDW (11.5-15.5) % Chloride (98-107) mmol/L BUN (9-20) mg/dL Glucose (74-99) mg/dL POC Glucose (mg/dL) 234 H 198 H 148 H (75-99) mg/dL Calcium (8.4-10.2) mg/dL 06/10/20 06/10/20 06/10/20 Range/Units 06:54 07:28 07:28 RBC 3.26 L (4.30-5.90) m/uL Hgb 8.0 L (13.0-17.5) gm/dL Hct 27.1 L (39.0-53.0) % MCH 24.4 L (25.0-35.0) pg MCHC 29.4 L (31.0-37.0) g/dL RDW 18.2 H (11.5-15.5) % Chloride 109 H (98-107) mmol/L BUN 27 H (9-20) mg/dL Glucose 105 H (74-99) mg/dL POC Glucose (mg/dL) 123 H (75-99) mg/dL Calcium 8.0 L (8.4-10.2) mg/dL Assessment and Plan (1) Diabetes mellitus Current Visit: Yes Status: Acute Code(s): E11.9 - TYPE 2 DIABETES MELLITUS WITHOUT COMPLICATIONS SNOMED Code(s): 83868218 (2) Fall Current Visit: Yes Status: Acute Code(s): W19.XXXA - UNSPECIFIED FALL, INITIAL ENCOUNTER SNOMED Code(s): 7447818 (3) Fracture of distal fibula Current Visit: Yes Status: Acute Code(s): S82.839A - OTH FRACTURE OF UPPER AND LOWER END OF UNSP FIBULA, INIT SNOMED Code(s): 317166565 (4) Charcot foot due to diabetes mellitus Current Visit: Yes Status: Acute Code(s): E11.610 - TYPE 2 DIABETES MELLITUS W DIABETIC NEUROPATHIC ARTHROPATHY SNOMED Code(s): 828674952 Plan: 1. Strictly nonweightbearing to the left lower extremity. Maintain splint. 2. Daily dressing changes and skin checks. Monitor left heel daily. 3. Continue routine postoperative care and pain control. 4. Eliquis per internal medicine. 5. Discharge to [facility].
== END 2020-06-10 12:03 | DRG 493 ==
LOC: EC 16:31 → 1SOBS 19:14 → OBSVTOIN 06-02 09:15 → 5NMEDONC 06-03 13:09
PROVIDERS: ADMIT Hospitalist; ATTEND Hospitalist
PROC: 05HF33Z Insertion of Infusion Device into Left Cephalic Vein, Percutaneous Approach (ICD-10-PCS; 2020-06-03 14:30)
PROC: 0QSH0ZZ Reposition Left Tibia, Open Approach (ICD-10-PCS; principal; 2020-06-04 13:00)
PROC: 0QSK04Z Reposition Left Fibula with Internal Fixation Device, Open Approach (ICD-10-PCS; principal; 2020-06-04 13:00)
DX: S82.852A Displaced trimalleolar fracture of left lower leg, initial encounter for closed fracture (principal); E87.1 Hypo-osmolality and hyponatremia; I48.19 Other persistent atrial fibrillation; I50.22 Chronic systolic (congestive) heart failure; D63.8 Anemia in other chronic diseases classified elsewhere; D69.6 Thrombocytopenia, unspecified; E11.42 Type 2 diabetes mellitus with diabetic polyneuropathy; E11.51 Type 2 diabetes mellitus with diabetic peripheral angiopathy without gangrene; E11.610 Type 2 diabetes mellitus with diabetic neuropathic arthropathy; E11.65 Type 2 diabetes mellitus with hyperglycemia; I11.0 Hypertensive heart disease with heart failure; Z20.828 Contact with and (suspected) exposure to other viral communicable diseases; E78.5 Hyperlipidemia, unspecified; E87.5 Hyperkalemia; G47.00 Insomnia, unspecified; H91.90 Unspecified hearing loss, unspecified ear; I25.10 Atherosclerotic heart disease of native coronary artery without angina pectoris; I25.2 Old myocardial infarction; I25.5 Ischemic cardiomyopathy; K59.00 Constipation, unspecified; R01.1 Cardiac murmur, unspecified; R26.89 Other abnormalities of gait and mobility; L57.0 Actinic keratosis; E66.9 Obesity, unspecified; Z68.29 Body mass index [BMI] 29.0-29.9, adult; Z79.01 Long term (current) use of anticoagulants; Z79.4 Long term (current) use of insulin; Z79.82 Long term (current) use of aspirin; Z79.899 Other long term (current) drug therapy; Z87.440 Personal history of urinary (tract) infections; Z87.891 Personal history of nicotine dependence; Z95.1 Presence of aortocoronary bypass graft; Z95.810 Presence of automatic (implantable) cardiac defibrillator; Z98.42 Cataract extraction status, left eye; Z98.41 Cataract extraction status, right eye; N42.9 Disorder of prostate, unspecified; Z95.820 Peripheral vascular angioplasty status with implants and grafts; Z20.1 Contact with and (suspected) exposure to tuberculosis; Z82.0 Family history of epilepsy and other diseases of the nervous system; Z83.6 Family history of other diseases of the respiratory system; W01.0XXA Fall on same level from slipping, tripping and stumbling without subsequent striking against object, initial encounter; Y92.008 Other place in unspecified non-institutional (private) residence as the place of occurrence of the external cause
CPT/HCPCS: 36410; 36415; 76937; 80048; 80053; 84132; 85025; 87635; 93005; 93306; 96374; 99284